=== PATIENT | female | born 2005 | race Caucasian/White ===

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

== ENCOUNTER 2024-11-29 00:49 | Inpatient (IN) | payer OTHER, SELFPAY ==
--- OUTSIDE RECORDS SUMMARY | 2024-11-29 01:16 | XMS REPORT | Continuity of Care Document ---
Author Name Unknown Address [address] [facility] [place] [address] [facility] Address [address] 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 Name Role Phone SHANELL GUTIERREZ Primary Care Physician Sara MAYRA Delatorre Attending Clinician Unavailable GHAZAL CARRERA Attending Clinician GHAZAL Reddy Attending Clinician Renate Fernandez NP, [place] Attending Clinician [phone] AMOL FERNANDEZ Attending Clinician Cathie carpenter Doctor Unassigned, [place] Attending Clinician U LUCILA Esteban Attending Clinician Unavailable KENNEDI QUINN Attending Clinician Sarav ailKennedi Sharma MD Attending Clinician + Shanell Gutierrez Attending Clinician [phone] Jorden FRANCO, Alban Attending Clinician [phone] Hilario FRANCO, Gama Vallecillo Attending Clinician [phone] 1, [facility] Nst Room Attending Clinician Unavailable Monique Sarkar Attending Clinician [phone] BORIS WASHINGTON Attending Clinician Unavailabl e 1, [facility] Us Room Attending Clinician Unavailab Boris Arroyo MD Attending Clinician [phone] UMM CERVANTES Attending Clinician Unavailable Umm Cervantes MD Attending Clinician [phone] DARIELA ANDRADE Attending Clinician Unav ailable Fellow, [facility] Attending Clinician Un available Dariela Andrade MD Attending Clinician + Room, [facility] Nst Attending Clinician Unavailable Nurse, [facility] Attending Clinician Unavailable 2, [facility] Us Room Attending Clinician Unavailab Ronal Love DO Attending Clinician [phone] RONAL MENA Attending Clinician Unavailable Lab, Frank Moe Attending Clinician Unavailable Pauly Jacinto RN Attending Clinician Unavailabl e Ultrasound, [facility] Attending Clinician Unavaila Jose Tong MD Attending Clinician + JOSE BROWER Attending Clinician Unav ailable JETT LABOY Attending Clinician Unavailable Chris Pinto MD Attending Clinician + Jett Laboy MD Attending Clinician [phone] TYRONE GARZA Attending Clinician Unavailable Tyrone Polanco Attending Clinician [phone] MONIQUE FAGAN Attending Clinician Unavailabl e Risa Gill Attending Clinician [phone] KENNEDI QUINN Admitting Clinician Unav ailable Kennedi Quinn MD Admitting Clinician + AMOL FERNANDEZ Admitting Clinician CHRIS Castrejon Admitting Clinician Unavolodymyr ailable Payers Payer Name Policy Type Policy Number Effective Date Expirati on Date Source [employer] MEDICAID [id number] 2012 00:00:00 Problems Condition Name Condition Details Condition Category Status Onset Date Resolution Date Last Treatment Date Treating Clinician Comments Source Encounter for visit Encounter for visit Disease Active 2022-04 0-16 00:00: 00 [facility] (spontaneo us vaginal delivery) (spontaneo us vaginal delivery) Disease Active 9-06 00:00: 00 [facility] Single live Single live Disease Active 9-06 00:00: 00 [facility] Maternal varicella, non-immune Maternal varicella, non-immune Disease Active 9-06 00:00: 00 [facility] 38 weeks gestation of 38 weeks gestation of Disease Active 9-04 00:00: 00 [facility] Oligohydra mnios in third trimester Oligohydra mnios in third trimester Disease Active 9-04 00:00: 00 [facility] Group beta Strep positive Group beta Strep positive Disease Active 8-21 00:00: 00 [facility] Uterine size-date discrepanc y, antepartum Uterine size-date discrepanc y, antepartum Disease Active 7-20 00:00: 00 [facility] Diet controlled gestationa l diabetes mellitus (GDM), antepartum Diet controlled gestationa l diabetes mellitus (GDM), antepartum Disease Active 7-20 00:00: 00 [facility] Nexplanon insertion Nexplanon insertion Disease Active 7-20 00:00: 00 [facility] Gestationa l diabetes mellitus (GDM) in third trimester controlled on oral hypoglycem ic drug Gestationa l diabetes mellitus (GDM) in third trimester controlled on oral hypoglycem ic drug Disease Active 7-20 00:00: 00 [facility] Gastroesop hageal reflux in Gastroesop hageal reflux in Disease Active 6-15 00:00: 00 [facility] Pain of right hand Pain of right hand Disease Active 6-15 00:00: 00 [facility] Dysuria Dysuria Disease Active 2-25 00:00: 00 [facility] Mild tobacco abuse Mild tobacco abuse Disease Active 2- 00:00: 00 [facility] Tooth decay Tooth decay Disease Active 06-21 00:00: 00 [facility] with inconclusi ve viability, single or unspecifie d fetus with inconclusi ve viability, single or unspecifie d fetus Disease Active 05-23 00:00: 00 [facility] Nausea and vomiting during Nausea and vomiting during Disease Active 05-23 00:00: 00 [facility] Patient underweigh t Patient underweigh t Disease Active 05-23 00:00: 00 [facility] Supervisio n of high risk in third trimester Supervisio n of high risk in third trimester Disease Active 05-23 00:00: 00 [facility] Constipati on Constipati on Disease Active 05-26 00:00: 00 Overview: Formattin g of this note might be different from the original. 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 Utility [facility] Primary nocturnal enuresis Primary nocturnal enuresis Disease Active 10-02 00:00: 00 [facility] Allergies, Adverse Reactions, Alerts Allergy Name Allergy Type Status Severity Reaction(s) Onset Date Inactive Date Treating Clinician Comments Source ASPIRIN DRUG INGREDI Active 2020-04 00:00: 00 [facility] IBUPROFE N DRUG INGREDI Active Hiv2020-04 00:00: 00 [facility] Aspirin Propensi ty to adverse reaction s Active Hiv2020-04 00:00: 00 [facility] Ibuprofe n Propensi ty to adverse reaction s Active Hiv2020-04 00:00: [address] [facility] LATEX DRUG INGREDI Active Hives 12-26 00:00: [address] [facility] Latex Propensi ty to adverse reaction s Active Hives 12-26 00:00: [address] [facility] NO KNOWN ALLERGIE S Drug Class Active [facility] Social History Social Habit Start Date Stop Date Quantity Comments Source ASSERTION 2022-04-17 00:00:00 [facility] Gender identity [facility] History of tobacco use Cigarette Smoker [facility] History of Social function 2023-02-09 00:00:00 2023-02-09 00:00:00 [facility] Alcohol intake 2023-01-19 00:00:00 2023-01-19 00:00:00 Ex-drinker (finding) [facility] Exposure to SARS-CoV-2 (event) 2022-09-01 00:00:00 2022-09-11 10:35:00 Not sure [facility] Cigarettes smoked current (pack per day) - Reported 2022-05-23 00:00:00 2022-05-23 00:00:00 [facility] Tobacco Comment 2022-05-23 00:00:00 2022-05-23 00:00:00 uncle smokes around patient [facility] Sex Assigned At 2005 00:00:00 2005 00:00:00 [facility] Smoking Status Start Date Stop Date Source Smokes tobacco daily 2022-05-23 00:00:00 [facility] Occasional tobacco smoker 2017-06-10 00:00:00 [facility] Medications Ordered Medication Name Filled Medication Name Start Date Stop Date Current Medication? Ordering Clinician Indication Dosage Frequency Signature (SIG) Comments Components Source etonogestre L (NEXPLANON) implant 68 mg 2022-04 18:15: 00 02-09 17:25 :00 No [id number] [address]mg [facility] norelgestro min-ethinyl estradiol 150-35 mcg/24 hr patch 01-19 00:00: 00 Yes [id number] 1{patch } Apply 1 Patch to skin weekly. [facility] varicella virus vaccine live (VARIVAX) injection and diluent vial 12-31 14:13: 55 Yes 1{each} 0.5 mL (1 Each), Subcutaneo us, ONCE-PRIOR TO DISCHARGE, 1 dose, Starting on Thu12/31/22 at 0913, Until Discontinu ed, Routine, Give vaccine prior to discharge [facility] PNV no.153/FA/o m3/dha/epa/ fish ( GUMMIES ORAL) 12-31 09:18: 16 12-31 00:00 :00 No Take by mouth. [facility] [id number] fum-folic () 27 mg iron- 1 mg folic tablet 12-31 00:00: 00 Yes [id number] 1{tbl} Take 1 tablet by mouth in the morning. [facility] docusate 100 mg capsule 12-31 00:00: 00 Yes [id number] 200mg Take 2 capsules by mouth once daily as needed for Constipati on. [facility] ferrous sulfate 325 mg (65 mg iron) tablet 12-31 00:00: 00 Yes [id number] 325mg Take 1 tablet by mouth in the morning. [facility] simethicone (GAS RELIEF (SIMETHICON E)) chewable tablet 160 mg 12-29 23:00: 00 Yes 160mg 160 mg, Oral, PC+HS, First dose on Thu12/29/22 at 1800, Until Discontinu ed, Routine [facility] acetaminoph en (TYLENOL) tablet 650 mg 12-29 22:15: 00 01-01 16:59 :00 No 650mg 650 mg, Oral, Q6H, 12 doses, First dose on Thu12/29/22 at 1715, Last dose on Mary 01/01/23 at 0600, Routine [facility] rho(D) immune globulin (RHOGAM) syringe 300 mcg 12-29 22:07: 40 Yes 300ug 300 mcg, Intramuscu lar, ONCE, For 1 dose, Conditiona l, Routine [facility] diphenhydrA MINE (BENADRYL) tablet 25 mg 12-29 22:07: 35 Yes 25mg 25 mg, Oral, Q6HPRN, Starting on Thu12/29/22 at 1707, Until Discontinu ed, Routine, Sleep, Itching [facility] ondansetron (ZOFRAN (PF)) injection 4 mg 12-29 22:07: 35 Yes 4mg 4 mg, Slow IV Push, Q8HPRN, Starting on Thu12/29/22 at 1707, Until Discontinu ed, Routine, Nausea and Vomiting (N/V) [facility] docusate (COLACE) capsule 200 mg 12-29 22:07: 35 Yes 200mg 200 mg, Oral, QDAILYPRN, Starting on Thu12/29/22 at 1707, Until Discontinu ed, Routine, Constipati on [facility] magnesium hydroxide (MILK OF MAGNESIA) 400 mg/5 mL suspension 30 mL 12-29 22:07: 35 Yes 30mL 30 mL, Oral, QDAILYPRN, Starting on Thu12/29/22 at 1707, Until Discontinu ed, Routine, Constipati on [facility] benzocaine- menthol (DERMOPLAST ) 20-0.5 % topical spray 12-29 22:07: 35 Yes Topical, PRN, Starting on Thu12/29/22 at 1707, Until Discontinu ed, Routine, Perineum discomfort [facility] terbutaline (BRETHINE) injection 0.25 mg 12-29 17:00: 00 12-29 15:55 :00 No .25mg 0.25 mg, Intravenou s, ONCE, 1 dose, On Thu12/29/22 at 1200, Routine [facility] ropivacaine 0.2 % (NAROPIN (PF)) epidural infusion 12-29 15:38: 00 12-29 21:47 :56 No Epidural, CONTINUOUS PRN, Starting on Thu12/29/22 at 1038, Until Discontinu ed, Routine, Intra-op [facility] lidocaine-e pinephrine (XYLOCAINE W/EPINEPHRI NE) 1.5 %-1:200,000 injection 12-29 15:37: 00 12-29 21:47 :56 No Epidural, ONCE INTRA PROCEDURE, Starting on Thu12/29/22 at 1037, Until Discontinu ed, Routine, Intra-op [facility] PNV no.153/FA/o m3/dha/epa/ fish ( GUMMIES ORAL) 12-29 15:34: 17 Yes Take by mouth. [facility] morpHINE (4 mg/mL) injection 4 mg 12-29 13:30: 00 12-29 12:55 :00 No 4mg 4 mg, Slow IV Push, ONCE, 1 dose, On Thu12/29/22 at 0830, Routine [facility] oxytocin (PITOCIN) 30 units in NS 500 mL IV infusion 12-29 13:14: 36 12-29 22:07 :39 No 2mU/min at 2-40 mL/hr, IV Infusion, TITRATE, Starting on Thu12/29/22 at 0814, Until Thu12/29/22 at 1707, YA [facility] D5W-LR IV infusion 1,000 mL 12-29 09:41: 13 12-29 22:07 :39 No 1000mL at 1-125 mL/hr, IV Infusion, TITRATE, Starting on Thu12/29/22 at 0441, Until Thu12/29/22 at 1707, Routine [facility] PNV no.153/FA/o m3/dha/epa/ fish ( GUMMIES ORAL) 12-29 03:14: 19 Yes Take by mouth. [facility] metFORMIN 500 mg tablet 11-21 00:00: 00 12-31 00:00 :00 No [id number] 500mg Take 1 tablet by mouth in the morning for 90 days. [facility] omeprazole 40 mg capsule 11-13 00:00: 00 12-31 00:00 :00 No [id number] 40mg Take 1 capsule by mouth in the morning. [facility] FREESTYLE LITE STRIPS strip 10-22 00:00: 00 Yes USE TO CHECK BLOOD SUGAR FOUR TIMES A DAY DIRECTED [facility] FREESTYLE LITE STRIPS strip 10-22 00:00: 00 12-31 00:00 :00 No USE TO CHECK BLOOD SUGAR FOUR TIMES A DAY DIRECTED [facility] Blood-Gluco se Meter (BLOOD GLUCOSE MONITORING) Kit 10-20 00:00: 00 Yes Check blood sugar 4 times daily as directed. Brand per Insurance. [facility] Blood Sugar Diagnostic, Disc Strp 10-20 00:00: 00 Yes Check blood sugar 4 times a day as directed. [facility] Lancets Misc 10-20 00:00: 00 Yes Check blood sugars 4 times a day as directed. [facility] Alcohol Swabs PadM 10-20 00:00: 00 12-31 00:00 :00 No Apply to area 4 times a day to check blood sugar as directed. [facility] Blood-Gluco se Meter (BLOOD GLUCOSE MONITORING) Kit 10-20 00:00: 00 12-31 00:00 :00 No Check blood sugar 4 times daily as directed. Brand per Insurance. [facility] Blood Sugar Diagnostic, Disc Strp 0 10-20 00:00: 00 12-31 00:00 :00 No Check blood sugar 4 times a day as directed. [facility] Lancets Misc 0 10-20 00:00: 00 12-31 00:00 :00 No Check blood sugars 4 times a day as directed. [facility] omeprazole 20 mg capsule 15 00:00: 00 12-31 00:00 :00 No [id number] 20mg Take 1 capsule by mouth in the morning. [facility] PNV no.153/FA/o m3/dha/epa/ fish ( GUMMIES ORAL) 24 13:37: 34 Yes Take by mouth. [facility] PNV/iron,ca rb/docusat/ folic ac (PRENA-CAP ORAL) 17 00:00: 00 10-09 00:00 :00 No [facility] PNV no.153/FA/o m3/dha/epa/ fish ( GUMMIES ORAL) 05-23 15:23: 40 Yes Take by mouth. [facility] ondansetron 4 mg tablet 05-23 00:00: 00 12-31 00:00 :00 No [id number] 4mg Take 1 tablet by mouth every 8 (eight) hours as needed for Nausea and Vomiting (N/V). [facility] iopamidol (ISOVUE 370-500 mL) injection 60 mL 12-01 04:00: 00 12-01 04:00 :00 No [id number] 60mL 60 mL, Intravenou s, ONCE, 1 dose, On 11/30/21 at 2300, Routine [facility] acetaminoph en (TYLENOL) tablet 1,000 mg 12-01 02:30: 00 12-01 01:29 :00 No 1000mg 1,000 mg, Oral, ONCE NOW, 1 dose, On 11/30/21 at 2130, Routine [facility] vancomycin (VANCOCIN) 500 mg in NaCl 0.9% (NS) 100 mL MINI-BAG 12-01 02:15: 00 12-01 03:38 :00 No 500mg 500 mg, IV Piggyback, ONCE, 1 dose, On 11/30/21 at 2115, Administer over 90 Minutes, 100 mL
Reas on for Anti-Infec tive: Documented Infection< br>Documen savannah Infection Site: Skin / Soft Tissue
Duration of Therapy: Other (see Comments) [facility] piperacilli n-tazobacta m (ZOSYN) 3.375 g in NaCl 0.9% (NS) 100 mL MINI-BAG 12-01 02:00: 00 12-01 01:35 :00 No 3.375g 3.375 g, IV Piggyback, ONCE NOW, 1 dose, On 11/30/21 at 2100, Administer over 30 Minutes, 100 mL
Reas on for Anti-Infec tive: Empiric Therapy for Suspected Infection< br>Empiric Therapy Site: Other
O ther site: other
D uration of therapy: 72 hours [facility] NaCl 0.9% (NS) bolus infusion 1,000 mL 12-01 01:15: 00 12-01 02:38 :00 No 1000mL at 999 mL/hr, 1,000 mL, IV Infusion, ONCE, 1 dose, On 11/30/21 at 2014, STAT [facility] NaCl 0.9% (NS) bolus infusion 1,293 mL 12-01 01:15: 00 12-01 04:42 :00 No 30mL/kg at 999 mL/hr, 1,293 mL (30 mL/kg ?43.1 kg), IV Infusion, ONCE, 1 dose, On 11/30/21 at 2014, STAT [facility] ondansetron (ZOFRAN ODT) 4 mg disintegrat ing tablet 06-25 00:00: 00 05-23 00:00 :00 No [id number] 4mg Take 1 tablet by mouth every 8 (eight) hours as needed for Nausea and Vomiting (N/V). [facility] promethazin e-codeine 6.25-10 mg/5 mL syrup 06-25 00:00: 00 05-23 00:00 :00 No [id number] 5mL Take 5 mL by mouth 4 (four) times daily as needed for Cough. [facility] cyproheptad ine 4 mg tablet 07-18 00:00: 00 05-23 00:00 :00 No [id number] [facility] methylpheni date 54 mg 24 hr tablet 06-18 00:00: 05-23 00:00 :00 No 54mg Take 54 mg by mouth every morning. [facility] Immunizations Ordered Immunization Name Filled Immunization Name Date Status Comments Source Pediarix (dtap/hep B/ipv) 2023-02-19 00:00:00 Completed [facility] DTAP 2023-02-19 00:00:00 Completed [facility] HEPATITIS A 2023-02-19 00:00:00 Completed [facility] MMR 2023-02-19 00:00:00 Completed [facility] Varicella (varivax)(chicken pox) 2023-02-19 00:00:00 Completed [facility] Polio (IPV/OPV) 2023-02-19 00:00:00 Completed [facility] TDAP 2023-02-19 00:00:00 Completed [facility] Meningococcal Oligosaccharide (groups A, C, Y and W-135) conjugate vaccine (MCV4O) 2023-02-19 00:00:00 Completed [facility] HPV9 2023-02-19 00:00:00 Completed [facility] HIB 4 Dose Schedule 2023-02-19 00:00:00 Completed [facility] Hep B, Adol or Pedi Dosage 2023-02-19 00:00:00 Completed [facility] Influenza Virus Vaccine 2023-02-19 00:00:00 Completed [facility] Pneumococcal 7 Conjugate, PCV7 (Prevnar7) 2023-02-19 00:00:00 Completed [facility] DTaP, Unspecified Formulation 2023-02-19 00:00:00 Completed [facility] Flu Trivalent 2023-02-19 00:00:00 Completed [facility] Hib-HbOC 2023-02-19 00:00:00 Completed [facility] Meningococcal Polysaccharide (groups A, C, Y and W-135) conjugate vaccine (MCV4P) 2023-02-19 00:00:00 Completed [facility] IPV 2023-02-19 00:00:00 Completed [facility] Pediarix (dtap/hep B/ipv) 2023-02-18 00:00:00 Completed [facility] DTAP 2023-02-18 00:00:00 Completed [facility] HEPATITIS A 2023-02-18 00:00:00 Completed [facility] MMR 2023-02-18 00:00:00 Completed [facility] Varicella (varivax)(chicken pox) 2023-02-18 00:00:00 Completed [facility] Polio (IPV/OPV) 2023-02-18 00:00:00 Completed [facility] TDAP 2023-02-18 00:00:00 Completed [facility] Meningococcal Oligosaccharide (groups A, C, Y and W-135) conjugate vaccine (MCV4O) 2023-02-18 00:00:00 Completed [facility] HPV9 2023-02-18 00:00:00 Completed [facility] HIB 4 Dose Schedule 2023-02-18 00:00:00 Completed [facility] Hep B, Adol or Pedi Dosage 2023-02-18 00:00:00 Completed [facility] Influenza Virus Vaccine 2023-02-18 00:00:00 Completed [facility] Pneumococcal 7 Conjugate, PCV7 (Prevnar7) 2023-02-18 00:00:00 Completed [facility] DTaP, Unspecified Formulation 2023-02-18 00:00:00 Completed [facility] Flu Trivalent 2023-02-18 00:00:00 Completed [facility] Hib-HbOC 2023-02-18 00:00:00 Completed [facility] Meningococcal Polysaccharide (groups A, C, Y and W-135) conjugate vaccine (MCV4P) 2023-02-18 00:00:00 Completed [facility] IPV 2023-02-18 00:00:00 Completed [facility] Pediarix (dtap/hep B/ipv) 2023-02-09 11:15:00 Completed [facility] DTAP 2023-02-09 11:15:00 Completed [facility] HEPATITIS A 2023-02-09 11:15:00 Completed [facility] MMR 2023-02-09 11:15:00 Completed [facility] Varicella (varivax)(chicken pox) 2023-02-09 11:15:00 Completed [facility] Polio (IPV/OPV) 2023-02-09 11:15:00 Completed [facility] TDAP 2023-02-09 11:15:00 Completed [facility] Meningococcal Oligosaccharide (groups A, C, Y and W-135) conjugate vaccine (MCV4O) 2023-02-09 11:15:00 Completed [facility] HPV9 2023-02-09 11:15:00 Completed [facility] HIB 4 Dose Schedule 2023-02-09 11:15:00 Completed [facility] Hep B, Adol or Pedi Dosage 2023-02-09 11:15:00 Completed [facility] Influenza Virus Vaccine 2023-02-09 11:15:00 Completed [facility] Pneumococcal 7 Conjugate, PCV7 (Prevnar7) 2023-02-09 11:15:00 Completed [facility] DTaP, Unspecified Formulation 2023-02-09 11:15:00 Completed [facility] Flu Trivalent 2023-02-09 11:15:00 Completed [facility] Hib-HbOC 2023-02-09 11:15:00 Completed [facility] Meningococcal Polysaccharide (groups A, C, Y and W-135) conjugate vaccine (MCV4P) 2023-02-09 11:15:00 Completed [facility] IPV 2023-02-09 11:15:00 Completed [facility] Pediarix (dtap/hep B/ipv) 2023-02-09 00:00:00 Completed [facility] DTAP 2023-02-09 00:00:00 Completed [facility] HEPATITIS A 2023-02-09 00:00:00 Completed [facility] MMR 2023-02-09 00:00:00 Completed [facility] Varicella (varivax)(chicken pox) 2023-02-09 00:00:00 Completed [facility] Polio (IPV/OPV) 2023-02-09 00:00:00 Completed [facility] TDAP 2023-02-09 00:00:00 Completed [facility] Meningococcal Oligosaccharide (groups A, C, Y and W-135) conjugate vaccine (MCV4O) 2023-02-09 00:00:00 Completed [facility] HPV9 2023-02-09 00:00:00 Completed [facility] HIB 4 Dose Schedule 2023-02-09 00:00:00 Completed [facility] Hep B, Adol or Pedi Dosage 2023-02-09 00:00:00 Completed [facility] Influenza Virus Vaccine 2023-02-09 00:00:00 Completed [facility] Pneumococcal 7 Conjugate, PCV7 (Prevnar7) 2023-02-09 00:00:00 Completed [facility] DTaP, Unspecified Formulation 2023-02-09 00:00:00 Completed [facility] Flu Trivalent 2023-02-09 00:00:00 Completed [facility] Hib-HbOC 2023-02-09 00:00:00 Completed [facility] Meningococcal Polysaccharide (groups A, C, Y and W-135) conjugate vaccine (MCV4P) 2023-02-09 00:00:00 Completed [facility] IPV 2023-02-09 00:00:00 Completed [facility] HIB 4 Dose Schedule 2023-01-29 00:00:00 Completed [facility] Pediarix (dtap/hep B/ipv) 2023-01-29 00:00:00 Completed [facility] DTAP 2023-01-29 00:00:00 Completed [facility] HEPATITIS A 2023-01-29 00:00:00 Completed [facility] MMR 2023-01-29 00:00:00 Completed [facility] Pneumococcal 7 Conjugate, PCV7 (Prevnar7) 2023-01-29 00:00:00 Completed [facility] Varicella (varivax)(chicken pox) 2023-01-29 00:00:00 Completed [facility] Polio (IPV/OPV) 2023-01-29 00:00:00 Completed [facility] TDAP 2023-01-29 00:00:00 Completed [facility] Meningococcal Oligosaccharide (groups A, C, Y and W-135) conjugate vaccine (MCV4O) 2023-01-29 00:00:00 Completed [facility] HPV9 2023-01-29 00:00:00 Completed [facility] Hep B, Adol or Pedi Dosage 2023-01-29 00:00:00 Completed [facility] Influenza Virus Vaccine 2023-01-29 00:00:00 Completed [facility] DTaP, Unspecified Formulation 2023-01-29 00:00:00 Completed [facility] Flu Trivalent 2023-01-29 00:00:00 Completed [facility] Hib-HbOC 2023-01-29 00:00:00 Completed [facility] Meningococcal Polysaccharide (groups A, C, Y and W-135) conjugate vaccine (MCV4P) 2023-01-29 00:00:00 Completed [facility] IPV 2023-01-29 00:00:00 Completed [facility] Pediarix (dtap/hep B/ipv) 2023-01-27 00:00:00 Completed [facility] DTAP 2023-01-27 00:00:00 Completed [facility] HEPATITIS A 2023-01-27 00:00:00 Completed [facility] MMR 2023-01-27 00:00:00 Completed [facility] Varicella (varivax)(chicken pox) 2023-01-27 00:00:00 Completed [facility] Polio (IPV/OPV) 2023-01-27 00:00:00 Completed [facility] TDAP 2023-01-27 00:00:00 Completed [facility] Meningococcal Oligosaccharide (groups A, C, Y and W-135) conjugate vaccine (MCV4O) 2023-01-27 00:00:00 Completed [facility] HPV9 2023-01-27 00:00:00 Completed [facility] HIB 4 Dose Schedule 2023-01-27 00:00:00 Completed [facility] Hep B, Adol or Pedi Dosage 2023-01-27 00:00:00 Completed [facility] Influenza Virus Vaccine 2023-01-27 00:00:00 Completed [facility] Pneumococcal 7 Conjugate, PCV7 (Prevnar7) 2023-01-27 00:00:00 Completed [facility] DTaP, Unspecified Formulation 2023-01-27 00:00:00 Completed [facility] Flu Trivalent 2023-01-27 00:00:00 Completed [facility] Hib-HbOC 2023-01-27 00:00:00 Completed [facility] Meningococcal Polysaccharide (groups A, C, Y and W-135) conjugate vaccine (MCV4P) 2023-01-27 00:00:00 Completed [facility] IPV 2023-01-27 00:00:00 Completed [facility] Pediarix (dtap/hep B/ipv) 2023-01-20 00:00:00 Completed [facility] DTAP 2023-01-20 00:00:00 Completed [facility] HEPATITIS A 2023-01-20 00:00:00 Completed [facility] MMR 2023-01-20 00:00:00 Completed [facility] Varicella (varivax)(chicken pox) 2023-01-20 00:00:00 Completed [facility] Polio (IPV/OPV) 2023-01-20 00:00:00 Completed [facility] TDAP 2023-01-20 00:00:00 Completed [facility] Meningococcal Oligosaccharide (groups A, C, Y and W-135) conjugate vaccine (MCV4O) 2023-01-20 00:00:00 Completed [facility] HPV9 2023-01-20 00:00:00 Completed [facility] HIB 4 Dose Schedule 2023-01-20 00:00:00 Completed [facility] Hep B, Adol or Pedi Dosage 2023-01-20 00:00:00 Completed [facility] Influenza Virus Vaccine 2023-01-20 00:00:00 Completed [facility] Pneumococcal 7 Conjugate, PCV7 (Prevnar7) 2023-01-20 00:00:00 Completed [facility] DTaP, Unspecified Formulation 2023-01-20 00:00:00 Completed [facility] Flu Trivalent 2023-01-20 00:00:00 Completed [facility] Hib-HbOC 2023-01-20 00:00:00 Completed [facility] Meningococcal Polysaccharide (groups A, C, Y and W-135) conjugate vaccine (MCV4P) 2023-01-20 00:00:00 Completed [facility] IPV 2023-01-20 00:00:00 Completed [facility] Pediarix (dtap/hep B/ipv) 2023-01-19 10:00:00 Completed [facility] DTAP 2023-01-19 10:00:00 Completed [facility] HEPATITIS A 2023-01-19 10:00:00 Completed [facility] MMR 2023-01-19 10:00:00 Completed [facility] Varicella (varivax)(chicken pox) 2023-01-19 10:00:00 Completed [facility] Polio (IPV/OPV) 2023-01-19 10:00:00 Completed [facility] TDAP 2023-01-19 10:00:00 Completed [facility] Meningococcal Oligosaccharide (groups A, C, Y and W-135) conjugate vaccine (MCV4O) 2023-01-19 10:00:00 Completed [facility] HPV9 2023-01-19 10:00:00 Completed [facility] HIB 4 Dose Schedule 2023-01-19 10:00:00 Completed [facility] Hep B, Adol or Pedi Dosage 2023-01-19 10:00:00 Completed [facility] Influenza Virus Vaccine 2023-01-19 10:00:00 Completed [facility] Pneumococcal 7 Conjugate, PCV7 (Prevnar7) 2023-01-19 10:00:00 Completed [facility] DTaP, Unspecified Formulation 2023-01-19 10:00:00 Completed [facility] Flu Trivalent 2023-01-19 10:00:00 Completed [facility] Hib-HbOC 2023-01-19 10:00:00 Completed [facility] Meningococcal Polysaccharide (groups A, C, Y and W-135) conjugate vaccine (MCV4P) 2023-01-19 10:00:00 Completed [facility] IPV 2023-01-19 10:00:00 Completed [facility] Pediarix (dtap/hep B/ipv) 2022-12-30 00:00:00 Completed [facility] DTAP 2022-12-30 00:00:00 Completed [facility] HEPATITIS A 2022-12-30 00:00:00 Completed [facility] MMR 2022-12-30 00:00:00 Completed [facility] Varicella (varivax)(chicken pox) 2022-12-30 00:00:00 Completed [facility] Polio (IPV/OPV) 2022-12-30 00:00:00 Completed [facility] TDAP 2022-12-30 00:00:00 Completed [facility] Meningococcal Oligosaccharide (groups A, C, Y and W-135) conjugate vaccine (MCV4O) 2022-12-30 00:00:00 Completed [facility] HPV9 2022-12-30 00:00:00 Completed [facility] HIB 4 Dose Schedule 2022-12-30 00:00:00 Completed [facility] Hep B, Adol or Pedi Dosage 2022-12-30 00:00:00 Completed [facility] Influenza Virus Vaccine 2022-12-30 00:00:00 Completed [facility] Pneumococcal 7 Conjugate, PCV7 (Prevnar7) 2022-12-30 00:00:00 Completed [facility] DTaP, Unspecified Formulation 2022-12-30 00:00:00 Completed [facility] Flu Trivalent 2022-12-30 00:00:00 Completed [facility] Hib-HbOC 2022-12-30 00:00:00 Completed [facility] Meningococcal Polysaccharide (groups A, C, Y and W-135) conjugate vaccine (MCV4P) 2022-12-30 00:00:00 Completed [facility] IPV 2022-12-30 00:00:00 Completed [facility] Pediarix (dtap/hep B/ipv) 2022-12-22 00:00:00 Completed [facility] DTAP 2022-12-22 00:00:00 Completed [facility] HEPATITIS A 2022-12-22 00:00:00 Completed [facility] MMR 2022-12-22 00:00:00 Completed [facility] Varicella (varivax)(chicken pox) 2022-12-22 00:00:00 Completed [facility] Polio (IPV/OPV) 2022-12-22 00:00:00 Completed [facility] TDAP 2022-12-22 00:00:00 Completed [facility] Meningococcal Oligosaccharide (groups A, C, Y and W-135) conjugate vaccine (MCV4O) 2022-12-22 00:00:00 Completed [facility] HPV9 2022-12-22 00:00:00 Completed [facility] HIB 4 Dose Schedule 2022-12-22 00:00:00 Completed [facility] Hep B, Adol or Pedi Dosage 2022-12-22 00:00:00 Completed [facility] Influenza Virus Vaccine 2022-12-22 00:00:00 Completed [facility] Pneumococcal 7 Conjugate, PCV7 (Prevnar7) 2022-12-22 00:00:00 Completed [facility] DTaP, Unspecified Formulation 2022-12-22 00:00:00 Completed [facility] Flu Trivalent 2022-12-22 00:00:00 Completed [facility] Hib-HbOC 2022-12-22 00:00:00 Completed [facility] Meningococcal Polysaccharide (groups A, C, Y and W-135) conjugate vaccine (MCV4P) 2022-12-22 00:00:00 Completed [facility] IPV 2022-12-22 00:00:00 Completed [facility] Pediarix (dtap/hep B/ipv) 2022-12-09 00:00:00 Completed [facility] DTAP 2022-12-09 00:00:00 Completed [facility] HEPATITIS A 2022-12-09 00:00:00 Completed [facility] MMR 2022-12-09 00:00:00 Completed [facility] Varicella (varivax)(chicken pox) 2022-12-09 00:00:00 Completed [facility] Polio (IPV/OPV) 2022-12-09 00:00:00 Completed [facility] TDAP 2022-12-09 00:00:00 Completed [facility] Meningococcal Oligosaccharide (groups A, C, Y and W-135) conjugate vaccine (MCV4O) 2022-12-09 00:00:00 Completed [facility] HPV9 2022-12-09 00:00:00 Completed [facility] HIB 4 Dose Schedule 2022-12-09 00:00:00 Completed [facility] Hep B, Adol or Pedi Dosage 2022-12-09 00:00:00 Completed [facility] Influenza Virus Vaccine 2022-12-09 00:00:00 Completed [facility] Pneumococcal 7 Conjugate, PCV7 (Prevnar7) 2022-12-09 00:00:00 Completed [facility] DTaP, Unspecified Formulation 2022-12-09 00:00:00 Completed [facility] Flu Trivalent 2022-12-09 00:00:00 Completed [facility] Hib-HbOC 2022-12-09 00:00:00 Completed [facility] Meningococcal Polysaccharide (groups A, C, Y and W-135) conjugate vaccine (MCV4P) 2022-12-09 00:00:00 Completed [facility] IPV 2022-12-09 00:00:00 Completed [facility] Pediarix (dtap/hep B/ipv) 2022-11-14 00:00:00 Completed [facility] DTAP 2022-11-14 00:00:00 Completed [facility] HEPATITIS A 2022-11-14 00:00:00 Completed [facility] MMR 2022-11-14 00:00:00 Completed [facility] Varicella (varivax)(chicken pox) 2022-11-14 00:00:00 Completed [facility] Polio (IPV/OPV) 2022-11-14 00:00:00 Completed [facility] TDAP 2022-11-14 00:00:00 Completed [facility] Meningococcal Oligosaccharide (groups A, C, Y and W-135) conjugate vaccine (MCV4O) 2022-11-14 00:00:00 Completed [facility] HPV9 2022-11-14 00:00:00 Completed [facility] HIB 4 Dose Schedule 2022-11-14 00:00:00 Completed [facility] Hep B, Adol or Pedi Dosage 2022-11-14 00:00:00 Completed [facility] Influenza Virus Vaccine 2022-11-14 00:00:00 Completed [facility] Pneumococcal 7 Conjugate, PCV7 (Prevnar7) 2022-11-14 00:00:00 Completed [facility] DTaP, Unspecified Formulation 2022-11-14 00:00:00 Completed [facility] Flu Trivalent 2022-11-14 00:00:00 Completed [facility] Hib-HbOC 2022-11-14 00:00:00 Completed [facility] Meningococcal Polysaccharide (groups A, C, Y and W-135) conjugate vaccine (MCV4P) 2022-11-14 00:00:00 Completed [facility] IPV 2022-11-14 00:00:00 Completed [facility] Pediarix (dtap/hep B/ipv) 2022-11-07 00:00:00 Completed [facility] DTAP 2022-11-07 00:00:00 Completed [facility] HEPATITIS A 2022-11-07 00:00:00 Completed [facility] MMR 2022-11-07 00:00:00 Completed [facility] Varicella (varivax)(chicken pox) 2022-11-07 00:00:00 Completed [facility] Polio (IPV/OPV) 2022-11-07 00:00:00 Completed [facility] TDAP 2022-11-07 00:00:00 Completed [facility] Meningococcal Oligosaccharide (groups A, C, Y and W-135) conjugate vaccine (MCV4O) 2022-11-07 00:00:00 Completed [facility] HPV9 2022-11-07 00:00:00 Completed [facility] HIB 4 Dose Schedule 2022-11-07 00:00:00 Completed [facility] Hep B, Adol or Pedi Dosage 2022-11-07 00:00:00 Completed [facility] Influenza Virus Vaccine 2022-11-07 00:00:00 Completed [facility] Pneumococcal 7 Conjugate, PCV7 (Prevnar7) 2022-11-07 00:00:00 Completed [facility] DTaP, Unspecified Formulation 2022-11-07 00:00:00 Completed [facility] Flu Trivalent 2022-11-07 00:00:00 Completed [facility] Hib-HbOC 2022-11-07 00:00:00 Completed [facility] Meningococcal Polysaccharide (groups A, C, Y and W-135) conjugate vaccine (MCV4P) 2022-11-07 00:00:00 Completed [facility] IPV 2022-11-07 00:00:00 Completed [facility] Pediarix (dtap/hep B/ipv) 2022-10-17 00:00:00 Completed [facility] DTAP 2022-10-17 00:00:00 Completed [facility] HEPATITIS A 2022-10-17 00:00:00 Completed [facility] MMR 2022-10-17 00:00:00 Completed [facility] Varicella (varivax)(chicken pox) 2022-10-17 00:00:00 Completed [facility] Polio (IPV/OPV) 2022-10-17 00:00:00 Completed [facility] TDAP 2022-10-17 00:00:00 Completed [facility] Meningococcal Oligosaccharide (groups A, C, Y and W-135) conjugate vaccine (MCV4O) 2022-10-17 00:00:00 Completed [facility] HPV9 2022-10-17 00:00:00 Completed [facility] HIB 4 Dose Schedule 2022-10-17 00:00:00 Completed [facility] Hep B, Adol or Pedi Dosage 2022-10-17 00:00:00 Completed [facility] Influenza Virus Vaccine 2022-10-17 00:00:00 Completed [facility] Pneumococcal 7 Conjugate, PCV7 (Prevnar7) 2022-10-17 00:00:00 Completed [facility] DTaP, Unspecified Formulation 2022-10-17 00:00:00 Completed [facility] Flu Trivalent 2022-10-17 00:00:00 Completed [facility] Hib-HbOC 2022-10-17 00:00:00 Completed [facility] Meningococcal Polysaccharide (groups A, C, Y and W-135) conjugate vaccine (MCV4P) 2022-10-17 00:00:00 Completed [facility] IPV 2022-10-17 00:00:00 Completed [facility] Pediarix (dtap/hep B/ipv) 2022-10-07 00:00:00 Completed [facility] DTAP 2022-10-07 00:00:00 Completed [facility] HEPATITIS A 2022-10-07 00:00:00 Completed [facility] MMR 2022-10-07 00:00:00 Completed [facility] Varicella (varivax)(chicken pox) 2022-10-07 00:00:00 Completed [facility] Polio (IPV/OPV) 2022-10-07 00:00:00 Completed [facility] TDAP 2022-10-07 00:00:00 Completed [facility] Meningococcal Oligosaccharide (groups A, C, Y and W-135) conjugate vaccine (MCV4O) 2022-10-07 00:00:00 Completed [facility] HPV9 2022-10-07 00:00:00 Completed [facility] HIB 4 Dose Schedule 2022-10-07 00:00:00 Completed [facility] Hep B, Adol or Pedi Dosage 2022-10-07 00:00:00 Completed [facility] Influenza Virus Vaccine 2022-10-07 00:00:00 Completed [facility] Pneumococcal 7 Conjugate, PCV7 (Prevnar7) 2022-10-07 00:00:00 Completed [facility] DTaP, Unspecified Formulation 2022-10-07 00:00:00 Completed [facility] Flu Trivalent 2022-10-07 00:00:00 Completed [facility] Hib-HbOC 2022-10-07 00:00:00 Completed [facility] Meningococcal Polysaccharide (groups A, C, Y and W-135) conjugate vaccine (MCV4P) 2022-10-07 00:00:00 Completed [facility] IPV 2022-10-07 00:00:00 Completed [facility] Pediarix (dtap/hep B/ipv) 2022-09-22 00:00:00 Completed [facility] DTAP 2022-09-22 00:00:00 Completed [facility] HEPATITIS A 2022-09-22 00:00:00 Completed [facility] MMR 2022-09-22 00:00:00 Completed [facility] Varicella (varivax)(chicken pox) 2022-09-22 00:00:00 Completed [facility] Polio (IPV/OPV) 2022-09-22 00:00:00 Completed [facility] TDAP 2022-09-22 00:00:00 Completed [facility] Meningococcal Oligosaccharide (groups A, C, Y and W-135) conjugate vaccine (MCV4O) 2022-09-22 00:00:00 Completed [facility] HPV9 2022-09-22 00:00:00 Completed [facility] HIB 4 Dose Schedule 2022-09-22 00:00:00 Completed [facility] Hep B, Adol or Pedi Dosage 2022-09-22 00:00:00 Completed [facility] Influenza Virus Vaccine 2022-09-22 00:00:00 Completed [facility] Pneumococcal 7 Conjugate, PCV7 (Prevnar7) 2022-09-22 00:00:00 Completed [facility] DTaP, Unspecified Formulation 2022-09-22 00:00:00 Completed [facility] Flu Trivalent 2022-09-22 00:00:00 Completed [facility] Hib-HbOC 2022-09-22 00:00:00 Completed [facility] Meningococcal Polysaccharide (groups A, C, Y and W-135) conjugate vaccine (MCV4P) 2022-09-22 00:00:00 Completed [facility] IPV 2022-09-22 00:00:00 Completed [facility] Pediarix (dtap/hep B/ipv) 2022-07-28 00:00:00 Completed [facility] DTAP 2022-07-28 00:00:00 Completed [facility] HEPATITIS A 2022-07-28 00:00:00 Completed [facility] MMR 2022-07-28 00:00:00 Completed [facility] Varicella (varivax)(chicken pox) 2022-07-28 00:00:00 Completed [facility] Polio (IPV/OPV) 2022-07-28 00:00:00 Completed [facility] TDAP 2022-07-28 00:00:00 Completed [facility] Meningococcal Oligosaccharide (groups A, C, Y and W-135) conjugate vaccine (MCV4O) 2022-07-28 00:00:00 Completed [facility] HPV9 2022-07-28 00:00:00 Completed [facility] HIB 4 Dose Schedule 2022-07-28 00:00:00 Completed [facility] Hep B, Adol or Pedi Dosage 2022-07-28 00:00:00 Completed [facility] Influenza Virus Vaccine 2022-07-28 00:00:00 Completed [facility] Pneumococcal 7 Conjugate, PCV7 (Prevnar7) 2022-07-28 00:00:00 Completed [facility] DTaP, Unspecified Formulation 2022-07-28 00:00:00 Completed [facility] Flu Trivalent 2022-07-28 00:00:00 Completed [facility] Hib-HbOC 2022-07-28 00:00:00 Completed [facility] Meningococcal Polysaccharide (groups A, C, Y and W-135) conjugate vaccine (MCV4P) 2022-07-28 00:00:00 Completed [facility] IPV 2022-07-28 00:00:00 Completed [facility] Pediarix (dtap/hep B/ipv) 2022-07-27 00:00:00 Completed [facility] DTAP 2022-07-27 00:00:00 Completed [facility] HEPATITIS A 2022-07-27 00:00:00 Completed [facility] MMR 2022-07-27 00:00:00 Completed [facility] Varicella (varivax)(chicken pox) 2022-07-27 00:00:00 Completed [facility] Polio (IPV/OPV) 2022-07-27 00:00:00 Completed [facility] TDAP 2022-07-27 00:00:00 Completed [facility] Meningococcal Oligosaccharide (groups A, C, Y and W-135) conjugate vaccine (MCV4O) 2022-07-27 00:00:00 Completed [facility] HPV9 2022-07-27 00:00:00 Completed [facility] HIB 4 Dose Schedule 2022-07-27 00:00:00 Completed [facility] Hep B, Adol or Pedi Dosage 2022-07-27 00:00:00 Completed [facility] Influenza Virus Vaccine 2022-07-27 00:00:00 Completed [facility] Pneumococcal 7 Conjugate, PCV7 (Prevnar7) 2022-07-27 00:00:00 Completed [facility] DTaP, Unspecified Formulation 2022-07-27 00:00:00 Completed [facility] Flu Trivalent 2022-07-27 00:00:00 Completed [facility] Hib-HbOC 2022-07-27 00:00:00 Completed [facility] Meningococcal Polysaccharide (groups A, C, Y and W-135) conjugate vaccine (MCV4P) 2022-07-27 00:00:00 Completed [facility] IPV 2022-07-27 00:00:00 Completed [facility] HPV9 2018-09-03 00:00:00 Completed [facility] HPV9 2018-09-03 00:00:00 Completed [facility] HPV9 2018-09-03 00:00:00 Completed [facility] HPV9 2018-09-03 00:00:00 Completed [facility] HPV9 2018-09-03 00:00:00 Completed [facility] HPV9 2018-09-03 00:00:00 Completed [facility] HPV9 2018-09-03 00:00:00 Completed [facility] HPV9 2018-09-03 00:00:00 Completed [facility] HPV9 2018-09-03 00:00:00 Completed [facility] HPV9 2018-09-03 00:00:00 Completed [facility] HPV9 2018-09-03 00:00:00 Completed [facility] HPV9 2018-09-03 00:00:00 Completed [facility] HPV9 2018-09-03 00:00:00 Completed [facility] HPV9 2018-09-03 00:00:00 Completed [facility] HPV9 2018-09-03 00:00:00 Completed [facility] HPV9 2018-09-03 00:00:00 Completed [facility] HPV9 2018-09-03 00:00:00 Completed [facility] HPV9 2018-09-03 00:00:00 Completed [facility] HPV9 2018-09-03 00:00:00 Completed [facility] HPV9 2018-09-03 00:00:00 Completed [facility] HPV9 2018-09-03 00:00:00 Completed [facility] HPV9 2018-09-03 00:00:00 Completed [facility] HPV9 2018-09-03 00:00:00 Completed [facility] HPV9 2018-09-03 00:00:00 Completed [facility] HPV9 2018-09-03 00:00:00 Completed [facility] HPV9 2018-09-03 00:00:00 Completed [facility] HPV9 2018-09-03 00:00:00 Completed [facility] HPV9 2018-09-03 00:00:00 Completed [facility] HPV9 2018-09-03 00:00:00 Completed [facility] HPV9 2018-09-03 00:00:00 Completed [facility] HPV9 2018-09-03 00:00:00 Completed [facility] HPV9 2018-09-03 00:00:00 Completed [facility] HPV9 2018-09-03 00:00:00 Completed [facility] HPV9 2018-09-03 00:00:00 Completed [facility] HPV9 2018-09-03 00:00:00 Completed [facility] HPV9 2018-09-03 00:00:00 Completed [facility] HPV9 2018-09-03 00:00:00 Completed [facility] HPV9 2018-09-03 00:00:00 Completed [facility] HPV9 2018-09-03 00:00:00 Completed [facility] HPV9 2018-09-03 00:00:00 Completed [facility] HPV9 2018-09-03 00:00:00 Completed [facility] HPV9 2018-09-03 00:00:00 Completed [facility] HPV9 2018-09-03 00:00:00 Completed [facility] HPV9 2018-09-03 00:00:00 Completed [facility] HPV9 2018-09-03 00:00:00 Completed [facility] HPV9 2018-09-03 00:00:00 Completed [facility] HPV9 2018-09-03 00:00:00 Completed [facility] HPV9 2018-09-03 00:00:00 Completed [facility] HPV9 2018-09-03 00:00:00 Completed [facility] HPV9 2018-09-03 00:00:00 Completed [facility] HPV9 2018-09-03 00:00:00 Completed [facility] HPV9 2018-09-03 00:00:00 Completed [facility] HPV9 2018-09-03 00:00:00 Completed [facility] HPV9 2018-09-03 00:00:00 Completed [facility] HPV9 2018-09-03 00:00:00 Completed [facility] HPV9 2018-09-03 00:00:00 Completed [facility] HPV9 2018-09-03 00:00:00 Completed [facility] HPV9 2018-09-03 00:00:00 Completed [facility] HPV9 2018-09-03 00:00:00 Completed [facility] HPV9 2018-09-03 00:00:00 Completed [facility] HPV9 2018-09-03 00:00:00 Completed [facility] HPV9 2018-09-03 00:00:00 Completed [facility] Meningococcal Oligosaccharide (groups A, C, Y and W-135) conjugate vaccine (MCV4O) 2016-07-09 00:00:00 Completed [facility] TDAP 2016-07-09 00:00:00 Completed [facility] HPV9 2016-07-09 00:00:00 Completed [facility] Meningococcal Polysaccharide (groups A, C, Y and W-135) conjugate vaccine (MCV4P) 2016-07-09 00:00:00 Completed [facility] Meningococcal Oligosaccharide (groups A, C, Y and W-135) conjugate vaccine (MCV4O) 2016-07-09 00:00:00 Completed [facility] TDAP 2016-07-09 00:00:00 Completed [facility] HPV9 2016-07-09 00:00:00 Completed [facility] Meningococcal Polysaccharide (groups A, C, Y and W-135) conjugate vaccine (MCV4P) 2016-07-09 00:00:00 Completed [facility] Meningococcal Oligosaccharide (groups A, C, Y and W-135) conjugate vaccine (MCV4O) 2016-07-09 00:00:00 Completed [facility] TDAP 2016-07-09 00:00:00 Completed [facility] HPV9 2016-07-09 00:00:00 Completed [facility] Meningococcal Polysaccharide (groups A, C, Y and W-135) conjugate vaccine (MCV4P) 2016-07-09 00:00:00 Completed [facility] Meningococcal Oligosaccharide (groups A, C, Y and W-135) conjugate vaccine (MCV4O) 2016-07-09 00:00:00 Completed [facility] TDAP 2016-07-09 00:00:00 Completed [facility] HPV9 2016-07-09 00:00:00 Completed [facility] Meningococcal Polysaccharide (groups A, C, Y and W-135) conjugate vaccine (MCV4P) 2016-07-09 00:00:00 Completed [facility] Meningococcal Oligosaccharide (groups A, C, Y and W-135) conjugate vaccine (MCV4O) 2016-07-09 00:00:00 Completed [facility] TDAP 2016-07-09 00:00:00 Completed [facility] HPV9 2016-07-09 00:00:00 Completed [facility] Meningococcal Polysaccharide (groups A, C, Y and W-135) conjugate vaccine (MCV4P) 2016-07-09 00:00:00 Completed [facility] Meningococcal Oligosaccharide (groups A, C, Y and W-135) conjugate vaccine (MCV4O) 2016-07-09 00:00:00 Completed [facility] TDAP 2016-07-09 00:00:00 Completed [facility] HPV9 2016-07-09 00:00:00 Completed [facility] Meningococcal Polysaccharide (groups A, C, Y and W-135) conjugate vaccine (MCV4P) 2016-07-09 00:00:00 Completed [facility] Meningococcal Oligosaccharide (groups A, C, Y and W-135) conjugate vaccine (MCV4O) 2016-07-09 00:00:00 Completed [facility] TDAP 2016-07-09 00:00:00 Completed [facility] Meningococcal Oligosaccharide (groups A, C, Y and W-135) conjugate vaccine (MCV4O) 2016-07-09 00:00:00 Completed [facility] TDAP 2016-07-09 00:00:00 Completed [facility] HPV9 2016-07-09 00:00:00 Completed [facility] HPV9 2016-07-09 00:00:00 Completed [facility] Meningococcal Polysaccharide (groups A, C, Y and W-135) conjugate vaccine (MCV4P) 2016-07-09 00:00:00 Completed [facility] Meningococcal Oligosaccharide (groups A, C, Y and W-135) conjugate vaccine (MCV4O) 2016-07-09 00:00:00 Completed [facility] TDAP 2016-07-09 00:00:00 Completed [facility] HPV9 2016-07-09 00:00:00 Completed [facility] Meningococcal Polysaccharide (groups A, C, Y and W-135) conjugate vaccine (MCV4P) 2016-07-09 00:00:00 Completed [facility] Meningococcal Oligosaccharide (groups A, C, Y and W-135) conjugate vaccine (MCV4O) 2016-07-09 00:00:00 Completed [facility] TDAP 2016-07-09 00:00:00 Completed [facility] HPV9 2016-07-09 00:00:00 Completed [facility] Meningococcal Polysaccharide (groups A, C, Y and W-135) conjugate vaccine (MCV4P) 2016-07-09 00:00:00 Completed [facility] Meningococcal Oligosaccharide (groups A, C, Y and W-135) conjugate vaccine (MCV4O) 2016-07-09 00:00:00 Completed [facility] TDAP 2016-07-09 00:00:00 Completed [facility] HPV9 2016-07-09 00:00:00 Completed [facility] Meningococcal Polysaccharide (groups A, C, Y and W-135) conjugate vaccine (MCV4P) 2016-07-09 00:00:00 Completed [facility] Meningococcal Oligosaccharide (groups A, C, Y and W-135) conjugate vaccine (MCV4O) 2016-07-09 00:00:00 Completed [facility] TDAP 2016-07-09 00:00:00 Completed [facility] HPV9 2016-07-09 00:00:00 Completed [facility] Meningococcal Polysaccharide (groups A, C, Y and W-135) conjugate vaccine (MCV4P) 2016-07-09 00:00:00 Completed [facility] Meningococcal Oligosaccharide (groups A, C, Y and W-135) conjugate vaccine (MCV4O) 2016-07-09 00:00:00 Completed [facility] TDAP 2016-07-09 00:00:00 Completed [facility] HPV9 2016-07-09 00:00:00 Completed [facility] Meningococcal Polysaccharide (groups A, C, Y and W-135) conjugate vaccine (MCV4P) 2016-07-09 00:00:00 Completed [facility] Meningococcal Oligosaccharide (groups A, C, Y and W-135) conjugate vaccine (MCV4O) 2016-07-09 00:00:00 Completed [facility] TDAP 2016-07-09 00:00:00 Completed [facility] HPV9 2016-07-09 00:00:00 Completed [facility] Meningococcal Polysaccharide (groups A, C, Y and W-135) conjugate vaccine (MCV4P) 2016-07-09 00:00:00 Completed [facility] Meningococcal Oligosaccharide (groups A, C, Y and W-135) conjugate vaccine (MCV4O) 2016-07-09 00:00:00 Completed [facility] TDAP 2016-07-09 00:00:00 Completed [facility] HPV9 2016-07-09 00:00:00 Completed [facility] Meningococcal Polysaccharide (groups A, C, Y and W-135) conjugate vaccine (MCV4P) 2016-07-09 00:00:00 Completed [facility] Meningococcal Oligosaccharide (groups A, C, Y and W-135) conjugate vaccine (MCV4O) 2016-07-09 00:00:00 Completed [facility] TDAP 2016-07-09 00:00:00 Completed [facility] Meningococcal Oligosaccharide (groups A, C, Y and W-135) conjugate vaccine (MCV4O) 2016-07-09 00:00:00 Completed [facility] TDAP 2016-07-09 00:00:00 Completed [facility] HPV9 2016-07-09 00:00:00 Completed [facility] HPV9 2016-07-09 00:00:00 Completed [facility] Meningococcal Polysaccharide (groups A, C, Y and W-135) conjugate vaccine (MCV4P) 2016-07-09 00:00:00 Completed [facility] Meningococcal Oligosaccharide (groups A, C, Y and W-135) conjugate vaccine (MCV4O) 2016-07-09 00:00:00 Completed [facility] TDAP 2016-07-09 00:00:00 Completed [facility] HPV9 2016-07-09 00:00:00 Completed [facility] Meningococcal Polysaccharide (groups A, C, Y and W-135) conjugate vaccine (MCV4P) 2016-07-09 00:00:00 Completed [facility] Meningococcal Oligosaccharide (groups A, C, Y and W-135) conjugate vaccine (MCV4O) 2016-07-09 00:00:00 Completed [facility] TDAP 2016-07-09 00:00:00 Completed [facility] HPV9 2016-07-09 00:00:00 Completed [facility] Meningococcal Polysaccharide (groups A, C, Y and W-135) conjugate vaccine (MCV4P) 2016-07-09 00:00:00 Completed [facility] Meningococcal Oligosaccharide (groups A, C, Y and W-135) conjugate vaccine (MCV4O) 2016-07-09 00:00:00 Completed [facility] TDAP 2016-07-09 00:00:00 Completed [facility] HPV9 2016-07-09 00:00:00 Completed [facility] Meningococcal Polysaccharide (groups A, C, Y and W-135) conjugate vaccine (MCV4P) 2016-07-09 00:00:00 Completed [facility] Meningococcal Oligosaccharide (groups A, C, Y and W-135) conjugate vaccine (MCV4O) 2016-07-09 00:00:00 Completed [facility] TDAP 2016-07-09 00:00:00 Completed [facility] HPV9 2016-07-09 00:00:00 Completed [facility] Meningococcal Polysaccharide (groups A, C, Y and W-135) conjugate vaccine (MCV4P) 2016-07-09 00:00:00 Completed [facility] Meningococcal Oligosaccharide (groups A, C, Y and W-135) conjugate vaccine (MCV4O) 2016-07-09 00:00:00 Completed [facility] TDAP 2016-07-09 00:00:00 Completed [facility] HPV9 2016-07-09 00:00:00 Completed [facility] Meningococcal Polysaccharide (groups A, C, Y and W-135) conjugate vaccine (MCV4P) 2016-07-09 00:00:00 Completed [facility] Meningococcal Oligosaccharide (groups A, C, Y and W-135) conjugate vaccine (MCV4O) 2016-07-09 00:00:00 Completed [facility] TDAP 2016-07-09 00:00:00 Completed [facility] HPV9 2016-07-09 00:00:00 Completed [facility] Meningococcal Polysaccharide (groups A, C, Y and W-135) conjugate vaccine (MCV4P) 2016-07-09 00:00:00 Completed [facility] Meningococcal Oligosaccharide (groups A, C, Y and W-135) conjugate vaccine (MCV4O) 2016-07-09 00:00:00 Completed [facility] TDAP 2016-07-09 00:00:00 Completed [facility] HPV9 2016-07-09 00:00:00 Completed [facility] Meningococcal Polysaccharide (groups A, C, Y and W-135) conjugate vaccine (MCV4P) 2016-07-09 00:00:00 Completed [facility] Meningococcal Oligosaccharide (groups A, C, Y and W-135) conjugate vaccine (MCV4O) 2016-07-09 00:00:00 Completed [facility] TDAP 2016-07-09 00:00:00 Completed [facility] HPV9 2016-07-09 00:00:00 Completed [facility] Meningococcal Polysaccharide (groups A, C, Y and W-135) conjugate vaccine (MCV4P) 2016-07-09 00:00:00 Completed [facility] Meningococcal Oligosaccharide (groups A, C, Y and W-135) conjugate vaccine (MCV4O) 2016-07-09 00:00:00 Completed [facility] TDAP 2016-07-09 00:00:00 Completed [facility] HPV9 2016-07-09 00:00:00 Completed [facility] Meningococcal Polysaccharide (groups A, C, Y and W-135) conjugate vaccine (MCV4P) 2016-07-09 00:00:00 Completed [facility] Meningococcal Oligosaccharide (groups A, C, Y and W-135) conjugate vaccine (MCV4O) 2016-07-09 00:00:00 Completed [facility] TDAP 2016-07-09 00:00:00 Completed [facility] HPV9 2016-07-09 00:00:00 Completed [facility] Meningococcal Oligosaccharide (groups A, C, Y and W-135) conjugate vaccine (MCV4O) 2016-07-09 00:00:00 Completed [facility] Meningococcal Polysaccharide (groups A, C, Y and W-135) conjugate vaccine (MCV4P) 2016-07-09 00:00:00 Completed [facility] TDAP 2016-07-09 00:00:00 Completed [facility] HPV9 2016-07-09 00:00:00 Completed [facility] Meningococcal Oligosaccharide (groups A, C, Y and W-135) conjugate vaccine (MCV4O) 2016-07-09 00:00:00 Completed [facility] TDAP 2016-07-09 00:00:00 Completed [facility] HPV9 2016-07-09 00:00:00 Completed [facility] Meningococcal Polysaccharide (groups A, C, Y and W-135) conjugate vaccine (MCV4P) 2016-07-09 00:00:00 Completed [facility] Meningococcal Oligosaccharide (groups A, C, Y and W-135) conjugate vaccine (MCV4O) 2016-07-09 00:00:00 Completed [facility] TDAP 2016-07-09 00:00:00 Completed [facility] HPV9 2016-07-09 00:00:00 Completed [facility] Meningococcal Polysaccharide (groups A, C, Y and W-135) conjugate vaccine (MCV4P) 2016-07-09 00:00:00 Completed [facility] Meningococcal Oligosaccharide (groups A, C, Y and W-135) conjugate vaccine (MCV4O) 2016-07-09 00:00:00 Completed [facility] TDAP 2016-07-09 00:00:00 Completed [facility] HPV9 2016-07-09 00:00:00 Completed [facility] Meningococcal Polysaccharide (groups A, C, Y and W-135) conjugate vaccine (MCV4P) 2016-07-09 00:00:00 Completed [facility] Meningococcal Oligosaccharide (groups A, C, Y and W-135) conjugate vaccine (MCV4O) 2016-07-09 00:00:00 Completed [facility] TDAP 2016-07-09 00:00:00 Completed [facility] HPV9 2016-07-09 00:00:00 Completed [facility] Meningococcal Polysaccharide (groups A, C, Y and W-135) conjugate vaccine (MCV4P) 2016-07-09 00:00:00 Completed [facility] Meningococcal Oligosaccharide (groups A, C, Y and W-135) conjugate vaccine (MCV4O) 2016-07-09 00:00:00 Completed [facility] TDAP 2016-07-09 00:00:00 Completed [facility] HPV9 2016-07-09 00:00:00 Completed [facility] Meningococcal Polysaccharide (groups A, C, Y and W-135) conjugate vaccine (MCV4P) 2016-07-09 00:00:00 Completed [facility] Meningococcal Oligosaccharide (groups A, C, Y and W-135) conjugate vaccine (MCV4O) 2016-07-09 00:00:00 Completed [facility] TDAP 2016-07-09 00:00:00 Completed [facility] HPV9 2016-07-09 00:00:00 Completed [facility] Meningococcal Polysaccharide (groups A, C, Y and W-135) conjugate vaccine (MCV4P) 2016-07-09 00:00:00 Completed [facility] Meningococcal Oligosaccharide (groups A, C, Y and W-135) conjugate vaccine (MCV4O) 2016-07-09 00:00:00 Completed [facility] TDAP 2016-07-09 00:00:00 Completed [facility] HPV9 2016-07-09 00:00:00 Completed [facility] Meningococcal Polysaccharide (groups A, C, Y and W-135) conjugate vaccine (MCV4P) 2016-07-09 00:00:00 Completed [facility] Meningococcal Oligosaccharide (groups A, C, Y and W-135) conjugate vaccine (MCV4O) 2016-07-09 00:00:00 Completed [facility] TDAP 2016-07-09 00:00:00 Completed [facility] HPV9 2016-07-09 00:00:00 Completed [facility] Meningococcal Polysaccharide (groups A, C, Y and W-135) conjugate vaccine (MCV4P) 2016-07-09 00:00:00 Completed [facility] Meningococcal Oligosaccharide (groups A, C, Y and W-135) conjugate vaccine (MCV4O) 2016-07-09 00:00:00 Completed [facility] TDAP 2016-07-09 00:00:00 Completed [facility] HPV9 2016-07-09 00:00:00 Completed [facility] Meningococcal Polysaccharide (groups A, C, Y and W-135) conjugate vaccine (MCV4P) 2016-07-09 00:00:00 Completed [facility] Meningococcal Oligosaccharide (groups A, C, Y and W-135) conjugate vaccine (MCV4O) 2016-07-09 00:00:00 Completed [facility] TDAP 2016-07-09 00:00:00 Completed [facility] HPV9 2016-07-09 00:00:00 Completed [facility] Meningococcal Polysaccharide (groups A, C, Y and W-135) conjugate vaccine (MCV4P) 2016-07-09 00:00:00 Completed [facility] Meningococcal Oligosaccharide (groups A, C, Y and W-135) conjugate vaccine (MCV4O) 2016-07-09 00:00:00 Completed [facility] TDAP 2016-07-09 00:00:00 Completed [facility] HPV9 2016-07-09 00:00:00 Completed [facility] Meningococcal Oligosaccharide (groups A, C, Y and W-135) conjugate vaccine (MCV4O) 2016-07-09 00:00:00 Completed [facility] Meningococcal Polysaccharide (groups A, C, Y and W-135) conjugate vaccine (MCV4P) 2016-07-09 00:00:00 Completed [facility] TDAP 2016-07-09 00:00:00 Completed [facility] HPV9 2016-07-09 00:00:00 Completed [facility] Meningococcal Oligosaccharide (groups A, C, Y and W-135) conjugate vaccine (MCV4O) 2016-07-09 00:00:00 Completed [facility] TDAP 2016-07-09 00:00:00 Completed [facility] HPV9 2016-07-09 00:00:00 Completed [facility] Meningococcal Polysaccharide (groups A, C, Y and W-135) conjugate vaccine (MCV4P) 2016-07-09 00:00:00 Completed [facility] Meningococcal Oligosaccharide (groups A, C, Y and W-135) conjugate vaccine (MCV4O) 2016-07-09 00:00:00 Completed [facility] TDAP 2016-07-09 00:00:00 Completed [facility] HPV9 2016-07-09 00:00:00 Completed [facility] Meningococcal Polysaccharide (groups A, C, Y and W-135) conjugate vaccine (MCV4P) 2016-07-09 00:00:00 Completed [facility] Meningococcal Oligosaccharide (groups A, C, Y and W-135) conjugate vaccine (MCV4O) 2016-07-09 00:00:00 Completed [facility] TDAP 2016-07-09 00:00:00 Completed [facility] HPV9 2016-07-09 00:00:00 Completed [facility] Meningococcal Polysaccharide (groups A, C, Y and W-135) conjugate vaccine (MCV4P) 2016-07-09 00:00:00 Completed [facility] Meningococcal Oligosaccharide (groups A, C, Y and W-135) conjugate vaccine (MCV4O) 2016-07-09 00:00:00 Completed [facility] TDAP 2016-07-09 00:00:00 Completed [facility] HPV9 2016-07-09 00:00:00 Completed [facility] Meningococcal Polysaccharide (groups A, C, Y and W-135) conjugate vaccine (MCV4P) 2016-07-09 00:00:00 Completed [facility] Meningococcal Oligosaccharide (groups A, C, Y and W-135) conjugate vaccine (MCV4O) 2016-07-09 00:00:00 Completed [facility] TDAP 2016-07-09 00:00:00 Completed [facility] HPV9 2016-07-09 00:00:00 Completed [facility] Meningococcal Polysaccharide (groups A, C, Y and W-135) conjugate vaccine (MCV4P) 2016-07-09 00:00:00 Completed [facility] Meningococcal Oligosaccharide (groups A, C, Y and W-135) conjugate vaccine (MCV4O) 2016-07-09 00:00:00 Completed [facility] TDAP 2016-07-09 00:00:00 Completed [facility] HPV9 2016-07-09 00:00:00 Completed [facility] Meningococcal Polysaccharide (groups A, C, Y and W-135) conjugate vaccine (MCV4P) 2016-07-09 00:00:00 Completed [facility] Meningococcal Oligosaccharide (groups A, C, Y and W-135) conjugate vaccine (MCV4O) 2016-07-09 00:00:00 Completed [facility] TDAP 2016-07-09 00:00:00 Completed [facility] HPV9 2016-07-09 00:00:00 Completed [facility] Meningococcal Polysaccharide (groups A, C, Y and W-135) conjugate vaccine (MCV4P) 2016-07-09 00:00:00 Completed [facility] Meningococcal Oligosaccharide (groups A, C, Y and W-135) conjugate vaccine (MCV4O) 2016-07-09 00:00:00 Completed [facility] TDAP 2016-07-09 00:00:00 Completed [facility] HPV9 2016-07-09 00:00:00 Completed [facility] Meningococcal Polysaccharide (groups A, C, Y and W-135) conjugate vaccine (MCV4P) 2016-07-09 00:00:00 Completed [facility] Meningococcal Oligosaccharide (groups A, C, Y and W-135) conjugate vaccine (MCV4O) 2016-07-09 00:00:00 Completed [facility] TDAP 2016-07-09 00:00:00 Completed [facility] HPV9 2016-07-09 00:00:00 Completed [facility] Meningococcal Polysaccharide (groups A, C, Y and W-135) conjugate vaccine (MCV4P) 2016-07-09 00:00:00 Completed [facility] Meningococcal Oligosaccharide (groups A, C, Y and W-135) conjugate vaccine (MCV4O) 2016-07-09 00:00:00 Completed [facility] TDAP 2016-07-09 00:00:00 Completed [facility] HPV9 2016-07-09 00:00:00 Completed [facility] Meningococcal Polysaccharide (groups A, C, Y and W-135) conjugate vaccine (MCV4P) 2016-07-09 00:00:00 Completed [facility] Meningococcal Oligosaccharide (groups A, C, Y and W-135) conjugate vaccine (MCV4O) 2016-07-09 00:00:00 Completed [facility] TDAP 2016-07-09 00:00:00 Completed [facility] HPV9 2016-07-09 00:00:00 Completed [facility] Meningococcal Oligosaccharide (groups A, C, Y and W-135) conjugate vaccine (MCV4O) 2016-07-09 00:00:00 Completed [facility] TDAP 2016-07-09 00:00:00 Completed [facility] HPV9 2016-07-09 00:00:00 Completed [facility] Meningococcal Polysaccharide (groups A, C, Y and W-135) conjugate vaccine (MCV4P) 2016-07-09 00:00:00 Completed [facility] Meningococcal Oligosaccharide (groups A, C, Y and W-135) conjugate vaccine (MCV4O) 2016-07-09 00:00:00 Completed [facility] Meningococcal Oligosaccharide (groups A, C, Y and W-135) conjugate vaccine (MCV4O) 2016-07-09 00:00:00 Completed [facility] TDAP 2016-07-09 00:00:00 Completed [facility] HPV9 2016-07-09 00:00:00 Completed [facility] Meningococcal Polysaccharide (groups A, C, Y and W-135) conjugate vaccine (MCV4P) 2016-07-09 00:00:00 Completed [facility] Meningococcal Oligosaccharide (groups A, C, Y and W-135) conjugate vaccine (MCV4O) 2016-07-09 00:00:00 Completed [facility] TDAP 2016-07-09 00:00:00 Completed [facility] HPV9 2016-07-09 00:00:00 Completed [facility] Tdap 2016-07-09 00:00:00 Completed [facility] Meningococcal Polysaccharide (groups A, C, Y and W-135) conjugate vaccine (MCV4P) 2016-07-09 00:00:00 Completed [facility] Meningococcal Oligosaccharide (groups A, C, Y and W-135) conjugate vaccine (MCV4O) 2016-07-09 00:00:00 Completed [facility] TDAP 2016-07-09 00:00:00 Completed [facility] HPV9 2016-07-09 00:00:00 Completed [facility] Meningococcal Polysaccharide (groups A, C, Y and W-135) conjugate vaccine (MCV4P) 2016-07-09 00:00:00 Completed [facility] HPV9 2016-07-09 00:00:00 Completed [facility] Meningococcal Oligosaccharide (groups A, C, Y and W-135) conjugate vaccine (MCV4O) 2016-07-09 00:00:00 Completed [facility] TDAP 2016-07-09 00:00:00 Completed [facility] HPV9 2016-07-09 00:00:00 Completed [facility] Meningococcal Polysaccharide (groups A, C, Y and W-135) conjugate vaccine (MCV4P) 2016-07-09 00:00:00 Completed [facility] Meningococcal Oligosaccharide (groups A, C, Y and W-135) conjugate vaccine (MCV4O) 2016-07-09 00:00:00 Completed [facility] TDAP 2016-07-09 00:00:00 Completed [facility] HPV9 2016-07-09 00:00:00 Completed [facility] Meningococcal Polysaccharide (groups A, C, Y and W-135) conjugate vaccine (MCV4P) 2016-07-09 00:00:00 Completed [facility] Meningococcal Oligosaccharide (groups A, C, Y and W-135) conjugate vaccine (MCV4O) 2016-07-09 00:00:00 Completed [facility] TDAP 2016-07-09 00:00:00 Completed [facility] HPV9 2016-07-09 00:00:00 Completed [facility] Meningococcal Polysaccharide (groups A, C, Y and W-135) conjugate vaccine (MCV4P) 2016-07-09 00:00:00 Completed [facility] Meningococcal Oligosaccharide (groups A, C, Y and W-135) conjugate vaccine (MCV4O) 2016-07-09 00:00:00 Completed [facility] TDAP 2016-07-09 00:00:00 Completed [facility] HPV9 2016-07-09 00:00:00 Completed [facility] Meningococcal Polysaccharide (groups A, C, Y and W-135) conjugate vaccine (MCV4P) 2016-07-09 00:00:00 Completed [facility] Meningococcal Oligosaccharide (groups A, C, Y and W-135) conjugate vaccine (MCV4O) 2016-07-09 00:00:00 Completed [facility] TDAP 2016-07-09 00:00:00 Completed [facility] HPV9 2016-07-09 00:00:00 Completed [facility] Meningococcal Polysaccharide (groups A, C, Y and W-135) conjugate vaccine (MCV4P) 2016-07-09 00:00:00 Completed [facility] Meningococcal Oligosaccharide (groups A, C, Y and W-135) conjugate vaccine (MCV4O) 2016-07-09 00:00:00 Completed [facility] TDAP 2016-07-09 00:00:00 Completed [facility] HPV9 2016-07-09 00:00:00 Completed [facility] Meningococcal Polysaccharide (groups A, C, Y and W-135) conjugate vaccine (MCV4P) 2016-07-09 00:00:00 Completed [facility] Meningococcal Oligosaccharide (groups A, C, Y and W-135) conjugate vaccine (MCV4O) 2016-07-09 00:00:00 Completed [facility] TDAP 2016-07-09 00:00:00 Completed [facility] HPV9 2016-07-09 00:00:00 Completed [facility] Meningococcal Polysaccharide (groups A, C, Y and W-135) conjugate vaccine (MCV4P) 2016-07-09 00:00:00 Completed [facility] Meningococcal Oligosaccharide (groups A, C, Y and W-135) conjugate vaccine (MCV4O) 2016-07-09 00:00:00 Completed [facility] Tdap 2016-07-09 00:00:00 Completed [facility] Meningococcal Oligosaccharide (groups A, C, Y and W-135) conjugate vaccine (MCV4O) 2016-07-09 00:00:00 Completed [facility] TDAP 2016-07-09 00:00:00 Completed [facility] HPV9 2016-07-09 00:00:00 Completed [facility] HPV9 2016-07-09 00:00:00 Completed [facility] Meningococcal Polysaccharide (groups A, C, Y and W-135) conjugate vaccine (MCV4P) 2016-07-09 00:00:00 Completed [facility] Meningococcal Oligosaccharide (groups A, C, Y and W-135) conjugate vaccine (MCV4O) 2016-07-09 00:00:00 Completed [facility] TDAP 2016-07-09 00:00:00 Completed [facility] HPV9 2016-07-09 00:00:00 Completed [facility] Meningococcal Polysaccharide (groups A, C, Y and W-135) conjugate vaccine (MCV4P) 2016-07-09 00:00:00 Completed [facility] Meningococcal Oligosaccharide (groups A, C, Y and W-135) conjugate vaccine (MCV4O) 2016-07-09 00:00:00 Completed [facility] TDAP 2016-07-09 00:00:00 Completed [facility] HPV9 2016-07-09 00:00:00 Completed [facility] Meningococcal Polysaccharide (groups A, C, Y and W-135) conjugate vaccine (MCV4P) 2016-07-09 00:00:00 Completed [facility] Meningococcal Oligosaccharide (groups A, C, Y and W-135) conjugate vaccine (MCV4O) 2016-07-09 00:00:00 Completed [facility] TDAP 2016-07-09 00:00:00 Completed [facility] HPV9 2016-07-09 00:00:00 Completed [facility] Meningococcal Polysaccharide (groups A, C, Y and W-135) conjugate vaccine (MCV4P) 2016-07-09 00:00:00 Completed [facility] Meningococcal Oligosaccharide (groups A, C, Y and W-135) conjugate vaccine (MCV4O) 2016-07-09 00:00:00 Completed [facility] TDAP 2016-07-09 00:00:00 Completed [facility] HPV9 2016-07-09 00:00:00 Completed [facility] Meningococcal Polysaccharide (groups A, C, Y and W-135) conjugate vaccine (MCV4P) 2016-07-09 00:00:00 Completed [facility] TDAP 2011-01-08 00:00:00 Completed [facility] TDAP 2011-01-08 00:00:00 Completed [facility] TDAP 2011-01-08 00:00:00 Completed [facility] TDAP 2011-01-08 00:00:00 Completed [facility] TDAP 2011-01-08 00:00:00 Completed [facility] TDAP 2011-01-08 00:00:00 Completed [facility] TDAP 2011-01-08 00:00:00 Completed [facility] TDAP 2011-01-08 00:00:00 Completed [facility] TDAP 2011-01-08 00:00:00 Completed [facility] TDAP 2011-01-08 00:00:00 Completed [facility] TDAP 2011-01-08 00:00:00 Completed [facility] TDAP 2011-01-08 00:00:00 Completed [facility] TDAP 2011-01-08 00:00:00 Completed [facility] TDAP 2011-01-08 00:00:00 Completed [facility] TDAP 2011-01-08 00:00:00 Completed [facility] TDAP 2011-01-08 00:00:00 Completed [facility] TDAP 2011-01-08 00:00:00 Completed [facility] TDAP 2011-01-08 00:00:00 Completed [facility] TDAP 2011-01-08 00:00:00 Completed [facility] TDAP 2011-01-08 00:00:00 Completed [facility] TDAP 2011-01-08 00:00:00 Completed [facility] TDAP 2011-01-08 00:00:00 Completed [facility] TDAP 2011-01-08 00:00:00 Completed [facility] TDAP 2011-01-08 00:00:00 Completed [facility] TDAP 2011-01-08 00:00:00 Completed [facility] TDAP 2011-01-08 00:00:00 Completed [facility] TDAP 2011-01-08 00:00:00 Completed [facility] TDAP 2011-01-08 00:00:00 Completed [facility] TDAP 2011-01-08 00:00:00 Completed [facility] TDAP 2011-01-08 00:00:00 Completed [facility] TDAP 2011-01-08 00:00:00 Completed [facility] TDAP 2011-01-08 00:00:00 Completed [facility] TDAP 2011-01-08 00:00:00 Completed [facility] TDAP 2011-01-08 00:00:00 Completed [facility] TDAP 2011-01-08 00:00:00 Completed [facility] TDAP 2011-01-08 00:00:00 Completed [facility] TDAP 2011-01-08 00:00:00 Completed [facility] TDAP 2011-01-08 00:00:00 Completed [facility] TDAP 2011-01-08 00:00:00 Completed [facility] TDAP 2011-01-08 00:00:00 Completed [facility] TDAP 2011-01-08 00:00:00 Completed [facility] TDAP 2011-01-08 00:00:00 Completed [facility] TDAP 2011-01-08 00:00:00 Completed [facility] TDAP 2011-01-08 00:00:00 Completed [facility] TDAP 2011-01-08 00:00:00 Completed [facility] TDAP 2011-01-08 00:00:00 Completed [facility] TDAP 2011-01-08 00:00:00 Completed [facility] TDAP 2011-01-08 00:00:00 Completed [facility] TDAP 2011-01-08 00:00:00 Completed [facility] Tdap 2011-01-08 00:00:00 Completed [facility] TDAP 2011-01-08 00:00:00 Completed [facility] TDAP 2011-01-08 00:00:00 Completed [facility] TDAP 2011-01-08 00:00:00 Completed [facility] TDAP 2011-01-08 00:00:00 Completed [facility] TDAP 2011-01-08 00:00:00 Completed [facility] TDAP 2011-01-08 00:00:00 Completed [facility] TDAP 2011-01-08 00:00:00 Completed [facility] TDAP 2011-01-08 00:00:00 Completed [facility] TDAP 2011-01-08 00:00:00 Completed [facility] TDAP 2011-01-08 00:00:00 Completed [facility] TDAP 2011-01-08 00:00:00 Completed [facility] TDAP 2011-01-08 00:00:00 Completed [facility] TDAP 2011-01-08 00:00:00 Completed [facility] Tdap 2011-01-08 00:00:00 Completed [facility] TDAP 2011-01-08 00:00:00 Completed [facility] TDAP 2011-01-08 00:00:00 Completed [facility] TDAP 2011-01-08 00:00:00 Completed [facility] TDAP 2011-01-08 00:00:00 Completed [facility] TDAP 2011-01-08 00:00:00 Completed [facility] Varicella (varivax)(chicken pox) 2008-10-25 00:00:00 Completed [facility] Varicella (varivax)(chicken pox) 2008-10-25 00:00:00 Completed [facility] Varicella (varivax)(chicken pox) 2008-10-25 00:00:00 Completed [facility] Varicella (varivax)(chicken pox) 2008-10-25 00:00:00 Completed [facility] Varicella (varivax)(chicken pox) 2008-10-25 00:00:00 Completed [facility] Varicella (varivax)(chicken pox) 2008-10-25 00:00:00 Completed [facility] Varicella (varivax)(chicken pox) 2008-10-25 00:00:00 Completed [facility] Varicella (varivax)(chicken pox) 2008-10-25 00:00:00 Completed [facility] Varicella (varivax)(chicken pox) 2008-10-25 00:00:00 Completed [facility] Varicella (varivax)(chicken pox) 2008-10-25 00:00:00 Completed [facility] Varicella (varivax)(chicken pox) 2008-10-25 00:00:00 Completed [facility] Varicella (varivax)(chicken pox) 2008-10-25 00:00:00 Completed [facility] Varicella (varivax)(chicken pox) 2008-10-25 00:00:00 Completed [facility] Varicella (varivax)(chicken pox) 2008-10-25 00:00:00 Completed [facility] Varicella (varivax)(chicken pox) 2008-10-25 00:00:00 Completed [facility] Varicella (varivax)(chicken pox) 2008-10-25 00:00:00 Completed [facility] Varicella (varivax)(chicken pox) 2008-10-25 00:00:00 Completed [facility] Varicella (varivax)(chicken pox) 2008-10-25 00:00:00 Completed [facility] Varicella (varivax)(chicken pox) 2008-10-25 00:00:00 Completed [facility] Varicella (varivax)(chicken pox) 2008-10-25 00:00:00 Completed [facility] Varicella (varivax)(chicken pox) 2008-10-25 00:00:00 Completed [facility] Varicella (varivax)(chicken pox) 2008-10-25 00:00:00 Completed [facility] Varicella (varivax)(chicken pox) 2008-10-25 00:00:00 Completed [facility] Varicella (varivax)(chicken pox) 2008-10-25 00:00:00 Completed [facility] Varicella (varivax)(chicken pox) 2008-10-25 00:00:00 Completed [facility] Varicella (varivax)(chicken pox) 2008-10-25 00:00:00 Completed [facility] Varicella (varivax)(chicken pox) 2008-10-25 00:00:00 Completed [facility] Varicella (varivax)(chicken pox) 2008-10-25 00:00:00 Completed [facility] Varicella (varivax)(chicken pox) 2008-10-25 00:00:00 Completed [facility] Varicella (varivax)(chicken pox) 2008-10-25 00:00:00 Completed [facility] Varicella (varivax)(chicken pox) 2008-10-25 00:00:00 Completed [facility] Varicella (varivax)(chicken pox) 2008-10-25 00:00:00 Completed [facility] Varicella (varivax)(chicken pox) 2008-10-25 00:00:00 Completed [facility] Varicella (varivax)(chicken pox) 2008-10-25 00:00:00 Completed [facility] Varicella (varivax)(chicken pox) 2008-10-25 00:00:00 Completed [facility] Varicella (varivax)(chicken pox) 2008-10-25 00:00:00 Completed [facility] Varicella (varivax)(chicken pox) 2008-10-25 00:00:00 Completed [facility] Varicella (varivax)(chicken pox) 2008-10-25 00:00:00 Completed [facility] Varicella (varivax)(chicken pox) 2008-10-25 00:00:00 Completed [facility] Varicella (varivax)(chicken pox) 2008-10-25 00:00:00 Completed [facility] Varicella (varivax)(chicken pox) 2008-10-25 00:00:00 Completed [facility] Varicella (varivax)(chicken pox) 2008-10-25 00:00:00 Completed [facility] Varicella (varivax)(chicken pox) 2008-10-25 00:00:00 Completed [facility] Varicella (varivax)(chicken pox) 2008-10-25 00:00:00 Completed [facility] Varicella (varivax)(chicken pox) 2008-10-25 00:00:00 Completed [facility] Varicella (varivax)(chicken pox) 2008-10-25 00:00:00 Completed [facility] Varicella (varivax)(chicken pox) 2008-10-25 00:00:00 Completed [facility] Varicella (varivax)(chicken pox) 2008-10-25 00:00:00 Completed [facility] Varicella (varivax)(chicken pox) 2008-10-25 00:00:00 Completed [facility] Varicella (varivax)(chicken pox) 2008-10-25 00:00:00 Completed [facility] Varicella (varivax)(chicken pox) 2008-10-25 00:00:00 Completed [facility] Varicella (varivax)(chicken pox) 2008-10-25 00:00:00 Completed [facility] Varicella (varivax)(chicken pox) 2008-10-25 00:00:00 Completed [facility] Varicella (varivax)(chicken pox) 2008-10-25 00:00:00 Completed [facility] Varicella (varivax)(chicken pox) 2008-10-25 00:00:00 Completed [facility] Varicella (varivax)(chicken pox) 2008-10-25 00:00:00 Completed [facility] Varicella (varivax)(chicken pox) 2008-10-25 00:00:00 Completed [facility] Varicella (varivax)(chicken pox) 2008-10-25 00:00:00 Completed [facility] Varicella (varivax)(chicken pox) 2008-10-25 00:00:00 Completed [facility] Varicella (varivax)(chicken pox) 2008-10-25 00:00:00 Completed [facility] Varicella (varivax)(chicken pox) 2008-10-25 00:00:00 Completed [facility] Varicella (varivax)(chicken pox) 2008-10-25 00:00:00 Completed [facility] Varicella (varivax)(chicken pox) 2008-10-25 00:00:00 Completed [facility] Varicella (varivax)(chicken pox) 2008-10-25 00:00:00 Completed [facility] Varicella (varivax)(chicken pox) 2008-10-25 00:00:00 Completed [facility] Varicella (varivax)(chicken pox) 2008-10-25 00:00:00 Completed [facility] Varicella (varivax)(chicken pox) 2008-10-25 00:00:00 Completed [facility] Varicella (varivax)(chicken pox) 2008-10-25 00:00:00 Completed [facility] Varicella (varivax)(chicken pox) 2008-10-25 00:00:00 Completed [facility] DTAP 2007-12-30 00:00:00 Completed [facility] MMR 2007-12-30 00:00:00 Completed [facility] Polio (IPV/OPV) 2007-12-30 00:00:00 Completed [facility] DTaP, Unspecified Formulation 2007-12-30 00:00:00 Completed [facility] IPV 2007-12-30 00:00:00 Completed [facility] DTAP 2007-12-30 00:00:00 Completed [facility] MMR 2007-12-30 00:00:00 Completed [facility] Polio (IPV/OPV) 2007-12-30 00:00:00 Completed [facility] DTaP, Unspecified Formulation 2007-12-30 00:00:00 Completed [facility] IPV 2007-12-30 00:00:00 Completed [facility] DTAP 2007-12-30 00:00:00 Completed [facility] MMR 2007-12-30 00:00:00 Completed [facility] Polio (IPV/OPV) 2007-12-30 00:00:00 Completed [facility] DTaP, Unspecified Formulation 2007-12-30 00:00:00 Completed [facility] IPV 2007-12-30 00:00:00 Completed [facility] DTAP 2007-12-30 00:00:00 Completed [facility] MMR 2007-12-30 00:00:00 Completed [facility] Polio (IPV/OPV) 2007-12-30 00:00:00 Completed [facility] DTaP, Unspecified Formulation 2007-12-30 00:00:00 Completed [facility] IPV 2007-12-30 00:00:00 Completed [facility] DTAP 2007-12-30 00:00:00 Completed [facility] MMR 2007-12-30 00:00:00 Completed [facility] Polio (IPV/OPV) 2007-12-30 00:00:00 Completed [facility] DTaP, Unspecified Formulation 2007-12-30 00:00:00 Completed [facility] IPV 2007-12-30 00:00:00 Completed [facility] DTAP 2007-12-30 00:00:00 Completed [facility] MMR 2007-12-30 00:00:00 Completed [facility] DTAP 2007-12-30 00:00:00 Completed [facility] MMR 2007-12-30 00:00:00 Completed [facility] Polio (IPV/OPV) 2007-12-30 00:00:00 Completed [facility] Polio (IPV/OPV) 2007-12-30 00:00:00 Completed [facility] DTaP, Unspecified Formulation 2007-12-30 00:00:00 Completed [facility] IPV 2007-12-30 00:00:00 Completed [facility] DTAP 2007-12-30 00:00:00 Completed [facility] MMR 2007-12-30 00:00:00 Completed [facility] Polio (IPV/OPV) 2007-12-30 00:00:00 Completed [facility] DTaP, Unspecified Formulation 2007-12-30 00:00:00 Completed [facility] IPV 2007-12-30 00:00:00 Completed [facility] DTAP 2007-12-30 00:00:00 Completed [facility] MMR 2007-12-30 00:00:00 Completed [facility] Polio (IPV/OPV) 2007-12-30 00:00:00 Completed [facility] DTaP, Unspecified Formulation 2007-12-30 00:00:00 Completed [facility] IPV 2007-12-30 00:00:00 Completed [facility] DTAP 2007-12-30 00:00:00 Completed [facility] MMR 2007-12-30 00:00:00 Completed [facility] Polio (IPV/OPV) 2007-12-30 00:00:00 Completed [facility] DTaP, Unspecified Formulation 2007-12-30 00:00:00 Completed [facility] IPV 2007-12-30 00:00:00 Completed [facility] DTAP 2007-12-30 00:00:00 Completed [facility] MMR 2007-12-30 00:00:00 Completed [facility] Polio (IPV/OPV) 2007-12-30 00:00:00 Completed [facility] DTaP, Unspecified Formulation 2007-12-30 00:00:00 Completed [facility] IPV 2007-12-30 00:00:00 Completed [facility] DTAP 2007-12-30 00:00:00 Completed [facility] MMR 2007-12-30 00:00:00 Completed [facility] Polio (IPV/OPV) 2007-12-30 00:00:00 Completed [facility] DTaP, Unspecified Formulation 2007-12-30 00:00:00 Completed [facility] IPV 2007-12-30 00:00:00 Completed [facility] DTAP 2007-12-30 00:00:00 Completed [facility] MMR 2007-12-30 00:00:00 Completed [facility] Polio (IPV/OPV) 2007-12-30 00:00:00 Completed [facility] DTaP, Unspecified Formulation 2007-12-30 00:00:00 Completed [facility] IPV 2007-12-30 00:00:00 Completed [facility] DTAP 2007-12-30 00:00:00 Completed [facility] MMR 2007-12-30 00:00:00 Completed [facility] Polio (IPV/OPV) 2007-12-30 00:00:00 Completed [facility] DTaP, Unspecified Formulation 2007-12-30 00:00:00 Completed [facility] IPV 2007-12-30 00:00:00 Completed [facility] DTAP 2007-12-30 00:00:00 Completed [facility] MMR 2007-12-30 00:00:00 Completed [facility] DTAP 2007-12-30 00:00:00 Completed [facility] MMR 2007-12-30 00:00:00 [facility] [facility] Polio (IPV/OPV) 2007-12-30 00:00:00 Completed [facility] Polio (IPV/OPV) 2007-12-30 00:00:00 Completed [facility] DTaP, Unspecified Formulation 2007-12-30 00:00:00 Completed [facility] IPV 2007-12-30 00:00:00 Completed [facility] DTAP 2007-12-30 00:00:00 Completed [facility] MMR 2007-12-30 00:00:00 Completed [facility] Polio (IPV/OPV) 2007-12-30 00:00:00 Completed [facility] DTaP, Unspecified Formulation 2007-12-30 00:00:00 Completed [facility] IPV 2007-12-30 00:00:00 Completed [facility] DTAP 2007-12-30 00:00:00 Completed [facility] MMR 2007-12-30 00:00:00 Completed [facility] Polio (IPV/OPV) 2007-12-30 00:00:00 Completed [facility] DTaP, Unspecified Formulation 2007-12-30 00:00:00 Completed [facility] IPV 2007-12-30 00:00:00 Completed [facility] DTAP 2007-12-30 00:00:00 Completed [facility] MMR 2007-12-30 00:00:00 Completed [facility] Polio (IPV/OPV) 2007-12-30 00:00:00 Completed [facility] DTaP, Unspecified Formulation 2007-12-30 00:00:00 Completed [facility] IPV 2007-12-30 00:00:00 Completed [facility] DTAP 2007-12-30 00:00:00 Completed [facility] MMR 2007-12-30 00:00:00 Completed [facility] Polio (IPV/OPV) 2007-12-30 00:00:00 Completed [facility] DTaP, Unspecified Formulation 2007-12-30 00:00:00 Completed [facility] IPV 2007-12-30 00:00:00 Completed [facility] DTAP 2007-12-30 00:00:00 Completed [facility] MMR 2007-12-30 00:00:00 Completed [facility] Polio (IPV/OPV) 2007-12-30 00:00:00 Completed [facility] DTaP, Unspecified Formulation 2007-12-30 00:00:00 Completed [facility] IPV 2007-12-30 00:00:00 Completed [facility] DTAP 2007-12-30 00:00:00 Completed [facility] MMR 2007-12-30 00:00:00 Completed [facility] Polio (IPV/OPV) 2007-12-30 00:00:00 Completed [facility] DTaP, Unspecified Formulation 2007-12-30 00:00:00 Completed [facility] IPV 2007-12-30 00:00:00 Completed [facility] DTAP 2007-12-30 00:00:00 Completed [facility] MMR 2007-12-30 00:00:00 Completed [facility] Polio (IPV/OPV) 2007-12-30 00:00:00 Completed [facility] DTaP, Unspecified Formulation 2007-12-30 00:00:00 Completed [facility] IPV 2007-12-30 00:00:00 Completed [facility] DTAP 2007-12-30 00:00:00 Completed [facility] MMR 2007-12-30 00:00:00 Completed [facility] Polio (IPV/OPV) 2007-12-30 00:00:00 Completed [facility] DTaP, Unspecified Formulation 2007-12-30 00:00:00 Completed [facility] IPV 2007-12-30 00:00:00 Completed [facility] DTAP 2007-12-30 00:00:00 Completed [facility] MMR 2007-12-30 00:00:00 Completed [facility] Polio (IPV/OPV) 2007-12-30 00:00:00 Completed [facility] DTaP, Unspecified Formulation 2007-12-30 00:00:00 Completed [facility] IPV 2007-12-30 00:00:00 Completed [facility] DTAP 2007-12-30 00:00:00 Completed [facility] MMR 2007-12-30 00:00:00 Completed [facility] Polio (IPV/OPV) 2007-12-30 00:00:00 Completed [facility] DTAP 2007-12-30 00:00:00 Completed [facility] DTaP, Unspecified Formulation 2007-12-30 00:00:00 Completed [facility] MMR 2007-12-30 00:00:00 Completed [facility] IPV 2007-12-30 00:00:00 Completed [facility] Polio (IPV/OPV) 2007-12-30 00:00:00 Completed [facility] DTAP 2007-12-30 00:00:00 Completed [facility] MMR 2007-12-30 00:00:00 Completed [facility] Polio (IPV/OPV) 2007-12-30 00:00:00 Completed [facility] DTaP, Unspecified Formulation 2007-12-30 00:00:00 Completed [facility] IPV 2007-12-30 00:00:00 Completed [facility] DTAP 2007-12-30 00:00:00 Completed [facility] MMR 2007-12-30 00:00:00 Completed [facility] Polio (IPV/OPV) 2007-12-30 00:00:00 Completed [facility] DTaP, Unspecified Formulation 2007-12-30 00:00:00 Completed [facility] IPV 2007-12-30 00:00:00 Completed [facility] DTAP 2007-12-30 00:00:00 Completed [facility] MMR 2007-12-30 00:00:00 Completed [facility] Polio (IPV/OPV) 2007-12-30 00:00:00 Completed [facility] DTaP, Unspecified Formulation 2007-12-30 00:00:00 Completed [facility] IPV 2007-12-30 00:00:00 Completed [facility] DTAP 2007-12-30 00:00:00 Completed [facility] MMR 2007-12-30 00:00:00 Completed [facility] Polio (IPV/OPV) 2007-12-30 00:00:00 Completed [facility] DTaP, Unspecified Formulation 2007-12-30 00:00:00 Completed [facility] IPV 2007-12-30 00:00:00 Completed [facility] DTAP 2007-12-30 00:00:00 Completed [facility] MMR 2007-12-30 00:00:00 Completed [facility] Polio (IPV/OPV) 2007-12-30 00:00:00 Completed [facility] DTaP, Unspecified Formulation 2007-12-30 00:00:00 Completed [facility] IPV 2007-12-30 00:00:00 Completed [facility] DTAP 2007-12-30 00:00:00 Completed [facility] MMR 2007-12-30 00:00:00 Completed [facility] Polio (IPV/OPV) 2007-12-30 00:00:00 Completed [facility] DTaP, Unspecified Formulation 2007-12-30 00:00:00 Completed [facility] IPV 2007-12-30 00:00:00 Completed [facility] DTAP 2007-12-30 00:00:00 Completed [facility] MMR 2007-12-30 00:00:00 Completed [facility] Polio (IPV/OPV) 2007-12-30 00:00:00 Completed [facility] DTaP, Unspecified Formulation 2007-12-30 00:00:00 Completed [facility] IPV 2007-12-30 00:00:00 Completed [facility] DTAP 2007-12-30 00:00:00 Completed [facility] MMR 2007-12-30 00:00:00 Completed [facility] Polio (IPV/OPV) 2007-12-30 00:00:00 Completed [facility] DTaP, Unspecified Formulation 2007-12-30 00:00:00 Completed [facility] IPV 2007-12-30 00:00:00 Completed [facility] DTAP 2007-12-30 00:00:00 Completed [facility] MMR 2007-12-30 00:00:00 Completed [facility] Polio (IPV/OPV) 2007-12-30 00:00:00 Completed [facility] DTaP, Unspecified Formulation 2007-12-30 00:00:00 Completed [facility] IPV 2007-12-30 00:00:00 Completed [facility] DTAP 2007-12-30 00:00:00 Completed [facility] MMR 2007-12-30 00:00:00 Completed [facility] Polio (IPV/OPV) 2007-12-30 00:00:00 Completed [facility] DTaP, Unspecified Formulation 2007-12-30 00:00:00 Completed [facility] IPV 2007-12-30 00:00:00 Completed [facility] DTAP 2007-12-30 00:00:00 Completed [facility] MMR 2007-12-30 00:00:00 Completed [facility] Polio (IPV/OPV) 2007-12-30 00:00:00 Completed [facility] DTaP, Unspecified Formulation 2007-12-30 00:00:00 Completed [facility] DTAP 2007-12-30 00:00:00 Completed [facility] IPV 2007-12-30 00:00:00 Completed [facility] MMR 2007-12-30 00:00:00 Completed [facility] Polio (IPV/OPV) 2007-12-30 00:00:00 Completed [facility] DTAP 2007-12-30 00:00:00 Completed [facility] MMR 2007-12-30 00:00:00 Completed [facility] Polio (IPV/OPV) 2007-12-30 00:00:00 Completed [facility] DTaP, Unspecified Formulation 2007-12-30 00:00:00 Completed [facility] IPV 2007-12-30 00:00:00 Completed [facility] DTAP 2007-12-30 00:00:00 Completed [facility] MMR 2007-12-30 00:00:00 Completed [facility] Polio (IPV/OPV) 2007-12-30 00:00:00 Completed [facility] DTaP, Unspecified Formulation 2007-12-30 00:00:00 Completed [facility] IPV 2007-12-30 00:00:00 Completed [facility] DTAP 2007-12-30 00:00:00 Completed [facility] MMR 2007-12-30 00:00:00 Completed [facility] Polio (IPV/OPV) 2007-12-30 00:00:00 Completed [facility] DTaP, Unspecified Formulation 2007-12-30 00:00:00 Completed [facility] IPV 2007-12-30 00:00:00 Completed [facility] DTAP 2007-12-30 00:00:00 Completed [facility] MMR 2007-12-30 00:00:00 Completed [facility] Polio (IPV/OPV) 2007-12-30 00:00:00 Completed [facility] DTaP, Unspecified Formulation 2007-12-30 00:00:00 Completed [facility] IPV 2007-12-30 00:00:00 Completed [facility] DTAP 2007-12-30 00:00:00 Completed [facility] MMR 2007-12-30 00:00:00 Completed [facility] Polio (IPV/OPV) 2007-12-30 00:00:00 Completed [facility] DTaP, Unspecified Formulation 2007-12-30 00:00:00 Completed [facility] IPV 2007-12-30 00:00:00 Completed [facility] DTAP 2007-12-30 00:00:00 Completed [facility] DTAP 2007-12-30 00:00:00 Completed [facility] MMR 2007-12-30 00:00:00 Completed [facility] Polio (IPV/OPV) 2007-12-30 00:00:00 Completed [facility] DTaP, Unspecified Formulation 2007-12-30 00:00:00 Completed [facility] IPV 2007-12-30 00:00:00 Completed [facility] DTAP 2007-12-30 00:00:00 Completed [facility] MMR 2007-12-30 00:00:00 Completed [facility] Polio (IPV/OPV) 2007-12-30 00:00:00 Completed [facility] MMR 2007-12-30 00:00:00 Completed [facility] DTaP, Unspecified Formulation 2007-12-30 00:00:00 Completed [facility] IPV 2007-12-30 00:00:00 Completed [facility] DTAP 2007-12-30 00:00:00 Completed [facility] MMR 2007-12-30 00:00:00 Completed [facility] Polio (IPV/OPV) 2007-12-30 00:00:00 Completed [facility] DTaP, Unspecified Formulation 2007-12-30 00:00:00 Completed [facility] IPV 2007-12-30 00:00:00 Completed [facility] DTAP 2007-12-30 00:00:00 Completed [facility] MMR 2007-12-30 00:00:00 Completed [facility] Polio (IPV/OPV) 2007-12-30 00:00:00 Completed [facility] Polio (IPV/OPV) 2007-12-30 00:00:00 Completed [facility] DTaP, Unspecified Formulation 2007-12-30 00:00:00 Completed [facility] IPV 2007-12-30 00:00:00 Completed [facility] DTAP 2007-12-30 00:00:00 Completed [facility] MMR 2007-12-30 00:00:00 Completed [facility] Polio (IPV/OPV) 2007-12-30 00:00:00 Completed [facility] DTaP, Unspecified Formulation 2007-12-30 00:00:00 Completed [facility] IPV 2007-12-30 00:00:00 Completed [facility] DTAP 2007-12-30 00:00:00 Completed [facility] MMR 2007-12-30 00:00:00 Completed [facility] Polio (IPV/OPV) 2007-12-30 00:00:00 Completed [facility] DTaP, Unspecified Formulation 2007-12-30 00:00:00 Completed [facility] IPV 2007-12-30 00:00:00 Completed [facility] DTAP 2007-12-30 00:00:00 Completed [facility] MMR 2007-12-30 00:00:00 Completed [facility] Polio (IPV/OPV) 2007-12-30 00:00:00 Completed [facility] DTAP 2007-12-30 00:00:00 Completed [facility] MMR 2007-12-30 00:00:00 Completed [facility] Polio (IPV/OPV) 2007-12-30 00:00:00 Completed [facility] DTaP, Unspecified Formulation 2007-12-30 00:00:00 Completed [facility] IPV 2007-12-30 00:00:00 Completed [facility] DTAP 2007-12-30 00:00:00 Completed [facility] MMR 2007-12-30 00:00:00 Completed [facility] Polio (IPV/OPV) 2007-12-30 00:00:00 Completed [facility] DTaP, Unspecified Formulation 2007-12-30 00:00:00 Completed [facility] IPV 2007-12-30 00:00:00 Completed [facility] DTAP 2007-12-30 00:00:00 Completed [facility] MMR 2007-12-30 00:00:00 Completed [facility] Polio (IPV/OPV) 2007-12-30 00:00:00 Completed [facility] DTaP, Unspecified Formulation 2007-12-30 00:00:00 Completed [facility] IPV 2007-12-30 00:00:00 Completed [facility] DTAP 2007-12-30 00:00:00 Completed [facility] MMR 2007-12-30 00:00:00 Completed [facility] Polio (IPV/OPV) 2007-12-30 00:00:00 Completed [facility] DTaP, Unspecified Formulation 2007-12-30 00:00:00 Completed [facility] IPV 2007-12-30 00:00:00 Completed [facility] DTAP 2007-12-30 00:00:00 Completed [facility] MMR 2007-12-30 00:00:00 Completed [facility] Polio (IPV/OPV) 2007-12-30 00:00:00 Completed [facility] DTaP, Unspecified Formulation 2007-12-30 00:00:00 Completed [facility] IPV 2007-12-30 00:00:00 Completed [facility] DTAP 2007-12-30 00:00:00 Completed [facility] MMR 2007-12-30 00:00:00 Completed [facility] Polio (IPV/OPV) 2007-12-30 00:00:00 Completed [facility] DTaP, Unspecified Formulation 2007-12-30 00:00:00 Completed [facility] IPV 2007-12-30 00:00:00 Completed [facility] DTAP 2007-12-30 00:00:00 Completed [facility] MMR 2007-12-30 00:00:00 Completed [facility] Polio (IPV/OPV) 2007-12-30 00:00:00 Completed [facility] DTaP, Unspecified Formulation 2007-12-30 00:00:00 Completed [facility] IPV 2007-12-30 00:00:00 Completed [facility] DTAP 2007-12-30 00:00:00 Completed [facility] MMR 2007-12-30 00:00:00 Completed [facility] Polio (IPV/OPV) 2007-12-30 00:00:00 Completed [facility] DTaP, Unspecified Formulation 2007-12-30 00:00:00 Completed [facility] IPV 2007-12-30 00:00:00 Completed [facility] DTAP 2007-12-30 00:00:00 Completed [facility] MMR 2007-12-30 00:00:00 Completed [facility] Polio (IPV/OPV) 2007-12-30 00:00:00 Completed [facility] DTaP, Unspecified Formulation 2007-12-30 00:00:00 Completed [facility] IPV 2007-12-30 00:00:00 Completed [facility] DTAP 2007-12-30 00:00:00 Completed [facility] MMR 2007-12-30 00:00:00 Completed [facility] Polio (IPV/OPV) 2007-12-30 00:00:00 Completed [facility] DTaP, Unspecified Formulation 2007-12-30 00:00:00 Completed [facility] IPV 2007-12-30 00:00:00 Completed [facility] DTAP 2007-12-30 00:00:00 Completed [facility] DTAP 2007-12-30 00:00:00 Completed [facility] MMR 2007-12-30 00:00:00 Completed [facility] Polio (IPV/OPV) 2007-12-30 00:00:00 Completed [facility] MMR 2007-12-30 00:00:00 Completed [facility] DTaP, Unspecified Formulation 2007-12-30 00:00:00 Completed [facility] Polio (IPV/OPV) 2007-12-30 00:00:00 Completed [facility] IPV 2007-12-30 00:00:00 Completed [facility] DTAP 2007-12-30 00:00:00 Completed [facility] MMR 2007-12-30 00:00:00 Completed [facility] Polio (IPV/OPV) 2007-12-30 00:00:00 Completed [facility] DTaP, Unspecified Formulation 2007-12-30 00:00:00 Completed [facility] IPV 2007-12-30 00:00:00 Completed [facility] DTAP 2007-12-30 00:00:00 Completed [facility] MMR 2007-12-30 00:00:00 Completed [facility] Polio (IPV/OPV) 2007-12-30 00:00:00 Completed [facility] DTaP, Unspecified Formulation 2007-12-30 00:00:00 Completed [facility] IPV 2007-12-30 00:00:00 Completed [facility] DTAP 2007-12-30 00:00:00 Completed [facility] MMR 2007-12-30 00:00:00 Completed [facility] Polio (IPV/OPV) 2007-12-30 00:00:00 Completed [facility] DTaP, Unspecified Formulation 2007-12-30 00:00:00 Completed [facility] IPV 2007-12-30 00:00:00 Completed [facility] DTAP 2007-12-30 00:00:00 Completed [facility] MMR 2007-12-30 00:00:00 Completed [facility] Polio (IPV/OPV) 2007-12-30 00:00:00 Completed [facility] DTaP, Unspecified Formulation 2007-12-30 00:00:00 Completed [facility] IPV 2007-12-30 00:00:00 Completed [facility] DTAP 2007-12-30 00:00:00 Completed [facility] MMR 2007-12-30 00:00:00 Completed [facility] Polio (IPV/OPV) 2007-12-30 00:00:00 Completed [facility] DTaP, Unspecified Formulation 2007-12-30 00:00:00 Completed [facility] IPV 2007-12-30 00:00:00 Completed [facility] HEPATITIS A 2007-12-14 00:00:00 Completed [facility] HEPATITIS A 2007-12-14 00:00:00 Completed [facility] HEPATITIS A 2007-12-14 00:00:00 Completed [facility] HEPATITIS A 2007-12-14 00:00:00 Completed [facility] HEPATITIS A 2007-12-14 00:00:00 Completed [facility] HEPATITIS A 2007-12-14 00:00:00 Completed [facility] HEPATITIS A 2007-12-14 00:00:00 Completed [facility] HEPATITIS A 2007-12-14 00:00:00 Completed [facility] HEPATITIS A 2007-12-14 00:00:00 Completed [facility] HEPATITIS A 2007-12-14 00:00:00 Completed [facility] HEPATITIS A 2007-12-14 00:00:00 Completed [facility] HEPATITIS A 2007-12-14 00:00:00 Completed [facility] HEPATITIS A 2007-12-14 00:00:00 Completed [facility] HEPATITIS A 2007-12-14 00:00:00 Completed [facility] HEPATITIS A 2007-12-14 00:00:00 Completed [facility] HEPATITIS A 2007-12-14 00:00:00 Completed [facility] HEPATITIS A 2007-12-14 00:00:00 Completed [facility] HEPATITIS A 2007-12-14 00:00:00 Completed [facility] HEPATITIS A 2007-12-14 00:00:00 Completed [facility] HEPATITIS A 2007-12-14 00:00:00 Completed [facility] HEPATITIS A 2007-12-14 00:00:00 Completed [facility] HEPATITIS A 2007-12-14 00:00:00 Completed [facility] HEPATITIS A 2007-12-14 00:00:00 Completed [facility] HEPATITIS A 2007-12-14 00:00:00 Completed [facility] HEPATITIS A 2007-12-14 00:00:00 Completed [facility] HEPATITIS A 2007-12-14 00:00:00 Completed [facility] HEPATITIS A 2007-12-14 00:00:00 Completed [facility] HEPATITIS A 2007-12-14 00:00:00 Completed [facility] HEPATITIS A 2007-12-14 00:00:00 Completed [facility] HEPATITIS A 2007-12-14 00:00:00 Completed [facility] HEPATITIS A 2007-12-14 00:00:00 Completed [facility] HEPATITIS A 2007-12-14 00:00:00 Completed [facility] HEPATITIS A 2007-12-14 00:00:00 Completed [facility] HEPATITIS A 2007-12-14 00:00:00 Completed [facility] HEPATITIS A 2007-12-14 00:00:00 Completed [facility] HEPATITIS A 2007-12-14 00:00:00 Completed [facility] HEPATITIS A 2007-12-14 00:00:00 Completed [facility] HEPATITIS A 2007-12-14 00:00:00 Completed [facility] HEPATITIS A 2007-12-14 00:00:00 Completed [facility] HEPATITIS A 2007-12-14 00:00:00 Completed [facility] HEPATITIS A 2007-12-14 00:00:00 Completed [facility] HEPATITIS A 2007-12-14 00:00:00 Completed [facility] HEPATITIS A 2007-12-14 00:00:00 Completed [facility] HEPATITIS A 2007-12-14 00:00:00 Completed [facility] HEPATITIS A 2007-12-14 00:00:00 Completed [facility] HEPATITIS A 2007-12-14 00:00:00 Completed [facility] HEPATITIS A 2007-12-14 00:00:00 Completed [facility] HEPATITIS A 2007-12-14 00:00:00 Completed [facility] HEPATITIS A 2007-12-14 00:00:00 Completed [facility] HEPATITIS A 2007-12-14 00:00:00 Completed [facility] HEPATITIS A 2007-12-14 00:00:00 Completed [facility] HEPATITIS A 2007-12-14 00:00:00 Completed [facility] HEPATITIS A 2007-12-14 00:00:00 Completed [facility] HEPATITIS A 2007-12-14 00:00:00 Completed [facility] HEPATITIS A 2007-12-14 00:00:00 Completed [facility] HEPATITIS A 2007-12-14 00:00:00 Completed [facility] HEPATITIS A 2007-12-14 00:00:00 Completed [facility] HEPATITIS A 2007-12-14 00:00:00 [facility] [facility] 2007[facility]12-14 00:00:00 Completed [facility] HEPATITIS A 2007-12-14 00:00:00 Completed [facility] HEPATITIS A 2007-12-14 00:00:00 Completed [facility] HEPATITIS A 2007-12-14 00:00:00 Completed [facility] HEPATITIS A 2007-12-14 00:00:00 Completed [facility] HEPATITIS A 2007-12-14 00:00:00 Completed [facility] HEPATITIS A 2007-12-14 00:00:00 Completed [facility] HEPATITIS A 2007-12-14 00:00:00 Completed [facility] HEPATITIS A 2007-12-14 00:00:00 Completed [facility] HEPATITIS A 2007-12-14 00:00:00 Completed [facility] HEPATITIS A 2007-12-14 00:00:00 Completed [facility] DTAP 2006-06-12 00:00:00 Completed [facility] HEPATITIS A 2006-06-12 00:00:00 Completed [facility] Pneumococcal 7 Conjugate, PCV7 (Prevnar7) 2006-06-12 00:00:00 Completed [facility] HIB 4 Dose Schedule 2006-06-12 00:00:00 Completed [facility] Influenza Virus Vaccine 2006-06-12 00:00:00 Completed [facility] DTaP, Unspecified Formulation 2006-06-12 00:00:00 Completed [facility] Flu Trivalent 2006-06-12 00:00:00 Completed [facility] Hib-HbOC 2006-06-12 00:00:00 Completed [facility] DTAP 2006-06-12 00:00:00 Completed [facility] HEPATITIS A 2006-06-12 00:00:00 Completed [facility] Pneumococcal 7 Conjugate, PCV7 (Prevnar7) 2006-06-12 00:00:00 Completed [facility] HIB 4 Dose Schedule 2006-06-12 00:00:00 Completed [facility] Influenza Virus Vaccine 2006-06-12 00:00:00 Completed [facility] DTaP, Unspecified Formulation 2006-06-12 00:00:00 Completed [facility] Flu Trivalent 2006-06-12 00:00:00 Completed [facility] Hib-HbOC 2006-06-12 00:00:00 Completed [facility] DTAP 2006-06-12 00:00:00 Completed [facility] HEPATITIS A 2006-06-12 00:00:00 Completed [facility] Pneumococcal 7 Conjugate, PCV7 (Prevnar7) 2006-06-12 00:00:00 Completed [facility] HIB 4 Dose Schedule 2006-06-12 00:00:00 Completed [facility] Influenza Virus Vaccine 2006-06-12 00:00:00 Completed [facility] DTaP, Unspecified Formulation 2006-06-12 00:00:00 Completed [facility] Flu Trivalent 2006-06-12 00:00:00 Completed [facility] Hib-HbOC 2006-06-12 00:00:00 Completed [facility] DTAP 2006-06-12 00:00:00 Completed [facility] DTAP 2006-06-12 00:00:00 Completed [facility] HEPATITIS A 2006-06-12 00:00:00 Completed [facility] Pneumococcal 7 Conjugate, PCV7 (Prevnar7) 2006-06-12 00:00:00 Completed [facility] HEPATITIS A 2006-06-12 00:00:00 Completed [facility] HIB 4 Dose Schedule 2006-06-12 00:00:00 Completed [facility] Influenza Virus Vaccine 2006-06-12 00:00:00 Completed [facility] DTaP, Unspecified Formulation 2006-06-12 00:00:00 Completed [facility] Flu Trivalent 2006-06-12 00:00:00 Completed [facility] Hib-HbOC 2006-06-12 00:00:00 Completed [facility] DTAP 2006-06-12 00:00:00 Completed [facility] HEPATITIS A 2006-06-12 00:00:00 Completed [facility] Pneumococcal 7 Conjugate, PCV7 (Prevnar7) 2006-06-12 00:00:00 Completed [facility] Pneumococcal 7 Conjugate, PCV7 (Prevnar7) 2006-06-12 00:00:00 Completed [facility] HIB 4 Dose Schedule 2006-06-12 00:00:00 Completed [facility] Influenza Virus Vaccine 2006-06-12 00:00:00 Completed [facility] DTaP, Unspecified Formulation 2006-06-12 00:00:00 Completed [facility] Flu Trivalent 2006-06-12 00:00:00 Completed [facility] Hib-HbOC 2006-06-12 00:00:00 Completed [facility] DTAP 2006-06-12 00:00:00 Completed [facility] HEPATITIS A 2006-06-12 00:00:00 Completed [facility] Pneumococcal 7 Conjugate, PCV7 (Prevnar7) 2006-06-12 00:00:00 Completed [facility] HIB 4 Dose Schedule 2006-06-12 00:00:00 Completed [facility] Influenza Virus Vaccine 2006-06-12 00:00:00 Completed [facility] DTaP, Unspecified Formulation 2006-06-12 00:00:00 Completed [facility] Flu Trivalent 2006-06-12 00:00:00 Completed [facility] Hib-HbOC 2006-06-12 00:00:00 Completed [facility] DTAP 2006-06-12 00:00:00 Completed [facility] HEPATITIS A 2006-06-12 00:00:00 Completed [facility] Pneumococcal 7 Conjugate, PCV7 (Prevnar7) 2006-06-12 00:00:00 Completed [facility] HIB 4 Dose Schedule 2006-06-12 00:00:00 Completed [facility] Influenza Virus Vaccine 2006-06-12 00:00:00 Completed [facility] DTaP, Unspecified Formulation 2006-06-12 00:00:00 Completed [facility] Flu Trivalent 2006-06-12 00:00:00 Completed [facility] Hib-HbOC 2006-06-12 00:00:00 Completed [facility] HIB 4 Dose Schedule 2006-06-12 00:00:00 Completed [facility] Influenza Virus Vaccine 2006-06-12 00:00:00 Completed [facility] DTAP 2006-06-12 00:00:00 Completed [facility] HEPATITIS A 2006-06-12 00:00:00 Completed [facility] Pneumococcal 7 Conjugate, PCV7 (Prevnar7) 2006-06-12 00:00:00 Completed [facility] HIB 4 Dose Schedule 2006-06-12 00:00:00 Completed [facility] Influenza Virus Vaccine 2006-06-12 00:00:00 Completed [facility] DTaP, Unspecified Formulation 2006-06-12 00:00:00 Completed [facility] Flu Trivalent 2006-06-12 00:00:00 Completed [facility] Hib-HbOC 2006-06-12 00:00:00 Completed [facility] DTAP 2006-06-12 00:00:00 Completed [facility] HEPATITIS A 2006-06-12 00:00:00 Completed [facility] Pneumococcal 7 Conjugate, PCV7 (Prevnar7) 2006-06-12 00:00:00 Completed [facility] HIB 4 Dose Schedule 2006-06-12 00:00:00 Completed [facility] Influenza Virus Vaccine 2006-06-12 00:00:00 Completed [facility] DTaP, Unspecified Formulation 2006-06-12 00:00:00 Completed [facility] Flu Trivalent 2006-06-12 00:00:00 Completed [facility] Hib-HbOC 2006-06-12 00:00:00 Completed [facility] DTAP 2006-06-12 00:00:00 Completed [facility] HEPATITIS A 2006-06-12 00:00:00 Completed [facility] Pneumococcal 7 Conjugate, PCV7 (Prevnar7) 2006-06-12 00:00:00 Completed [facility] HIB 4 Dose Schedule 2006-06-12 00:00:00 Completed [facility] Influenza Virus Vaccine 2006-06-12 00:00:00 Completed [facility] DTaP, Unspecified Formulation 2006-06-12 00:00:00 Completed [facility] Flu Trivalent 2006-06-12 00:00:00 Completed [facility] Hib-HbOC 2006-06-12 00:00:00 Completed [facility] DTAP 2006-06-12 00:00:00 Completed [facility] HEPATITIS A 2006-06-12 00:00:00 Completed [facility] Pneumococcal 7 Conjugate, PCV7 (Prevnar7) 2006-06-12 00:00:00 Completed [facility] HIB 4 Dose Schedule 2006-06-12 00:00:00 Completed [facility] Influenza Virus Vaccine 2006-06-12 00:00:00 Completed [facility] DTaP, Unspecified Formulation 2006-06-12 00:00:00 Completed [facility] Flu Trivalent 2006-06-12 00:00:00 Completed [facility] Hib-HbOC 2006-06-12 00:00:00 Completed [facility] DTAP 2006-06-12 00:00:00 Completed [facility] HEPATITIS A 2006-06-12 00:00:00 Completed [facility] DTAP 2006-06-12 00:00:00 Completed [facility] HEPATITIS A 2006-06-12 00:00:00 Completed [facility] Pneumococcal 7 Conjugate, PCV7 (Prevnar7) 2006-06-12 00:00:00 Completed [facility] HIB 4 Dose Schedule 2006-06-12 00:00:00 Completed [facility] Influenza Virus Vaccine 2006-06-12 00:00:00 Completed [facility] DTaP, Unspecified Formulation 2006-06-12 00:00:00 Completed [facility] Flu Trivalent 2006-06-12 00:00:00 Completed [facility] Hib-HbOC 2006-06-12 00:00:00 Completed [facility] DTAP 2006-06-12 00:00:00 Completed [facility] HEPATITIS A 2006-06-12 00:00:00 Completed [facility] Pneumococcal 7 Conjugate, PCV7 (Prevnar7) 2006-06-12 00:00:00 Completed [facility] Pneumococcal 7 Conjugate, PCV7 (Prevnar7) 2006-06-12 00:00:00 Completed [facility] HIB 4 Dose Schedule 2006-06-12 00:00:00 Completed [facility] Influenza Virus Vaccine 2006-06-12 00:00:00 Completed [facility] DTaP, Unspecified Formulation 2006-06-12 00:00:00 Completed [facility] Flu Trivalent 2006-06-12 00:00:00 Completed [facility] Hib-HbOC 2006-06-12 00:00:00 Completed [facility] DTAP 2006-06-12 00:00:00 Completed [facility] HEPATITIS A 2006-06-12 00:00:00 Completed [facility] Pneumococcal 7 Conjugate, PCV7 (Prevnar7) 2006-06-12 00:00:00 Completed [facility] HIB 4 Dose Schedule 2006-06-12 00:00:00 Completed [facility] Influenza Virus Vaccine 2006-06-12 00:00:00 Completed [facility] DTaP, Unspecified Formulation 2006-06-12 00:00:00 Completed [facility] Flu Trivalent 2006-06-12 00:00:00 Completed [facility] Hib-HbOC 2006-06-12 00:00:00 Completed [facility] DTAP 2006-06-12 00:00:00 Completed [facility] HEPATITIS A 2006-06-12 00:00:00 Completed [facility] Pneumococcal 7 Conjugate, PCV7 (Prevnar7) 2006-06-12 00:00:00 Completed [facility] HIB 4 Dose Schedule 2006-06-12 00:00:00 Completed [facility] Influenza Virus Vaccine 2006-06-12 00:00:00 Completed [facility] DTaP, Unspecified Formulation 2006-06-12 00:00:00 Completed [facility] Flu Trivalent 2006-06-12 00:00:00 Completed [facility] Hib-HbOC 2006-06-12 00:00:00 Completed [facility] HIB 4 Dose Schedule 2006-06-12 00:00:00 Completed [facility] Influenza Virus Vaccine 2006-06-12 00:00:00 Completed [facility] DTAP 2006-06-12 00:00:00 Completed [facility] HEPATITIS A 2006-06-12 00:00:00 Completed [facility] Pneumococcal 7 Conjugate, PCV7 (Prevnar7) 2006-06-12 00:00:00 Completed [facility] HIB 4 Dose Schedule 2006-06-12 00:00:00 Completed [facility] Influenza Virus Vaccine 2006-06-12 00:00:00 Completed [facility] DTaP, Unspecified Formulation 2006-06-12 00:00:00 Completed [facility] Flu Trivalent 2006-06-12 00:00:00 Completed [facility] Hib-HbOC 2006-06-12 00:00:00 Completed [facility] DTAP 2006-06-12 00:00:00 Completed [facility] HEPATITIS A 2006-06-12 00:00:00 Completed [facility] Pneumococcal 7 Conjugate, PCV7 (Prevnar7) 2006-06-12 00:00:00 Completed [facility] HIB 4 Dose Schedule 2006-06-12 00:00:00 Completed [facility] Influenza Virus Vaccine 2006-06-12 00:00:00 Completed [facility] DTaP, Unspecified Formulation 2006-06-12 00:00:00 Completed [facility] Flu Trivalent 2006-06-12 00:00:00 Completed [facility] Hib-HbOC 2006-06-12 00:00:00 Completed [facility] DTAP 2006-06-12 00:00:00 Completed [facility] HEPATITIS A 2006-06-12 00:00:00 Completed [facility] Pneumococcal 7 Conjugate, PCV7 (Prevnar7) 2006-06-12 00:00:00 Completed [facility] HIB 4 Dose Schedule 2006-06-12 00:00:00 Completed [facility] Influenza Virus Vaccine 2006-06-12 00:00:00 Completed [facility] DTaP, Unspecified Formulation 2006-06-12 00:00:00 Completed [facility] Flu Trivalent 2006-06-12 00:00:00 Completed [facility] Hib-HbOC 2006-06-12 00:00:00 Completed [facility] DTAP 2006-06-12 00:00:00 Completed [facility] HEPATITIS A 2006-06-12 00:00:00 Completed [facility] Pneumococcal 7 Conjugate, PCV7 (Prevnar7) 2006-06-12 00:00:00 Completed [facility] HIB 4 Dose Schedule 2006-06-12 00:00:00 Completed [facility] Influenza Virus Vaccine 2006-06-12 00:00:00 Completed [facility] DTaP, Unspecified Formulation 2006-06-12 00:00:00 Completed [facility] Flu Trivalent 2006-06-12 00:00:00 Completed [facility] Hib-HbOC 2006-06-12 00:00:00 Completed [facility] DTAP 2006-06-12 00:00:00 Completed [facility] HEPATITIS A 2006-06-12 00:00:00 Completed [facility] Pneumococcal 7 Conjugate, PCV7 (Prevnar7) 2006-06-12 00:00:00 Completed [facility] HIB 4 Dose Schedule 2006-06-12 00:00:00 Completed [facility] Influenza Virus Vaccine 2006-06-12 00:00:00 Completed [facility] DTaP, Unspecified Formulation 2006-06-12 00:00:00 Completed [facility] Flu Trivalent 2006-06-12 00:00:00 Completed [facility] Hib-HbOC 2006-06-12 00:00:00 Completed [facility] DTAP 2006-06-12 00:00:00 Completed [facility] HEPATITIS A 2006-06-12 00:00:00 Completed [facility] Pneumococcal 7 Conjugate, PCV7 (Prevnar7) 2006-06-12 00:00:00 Completed [facility] HIB 4 Dose Schedule 2006-06-12 00:00:00 Completed [facility] Influenza Virus Vaccine 2006-06-12 00:00:00 Completed [facility] DTaP, Unspecified Formulation 2006-06-12 00:00:00 Completed [facility] Flu Trivalent 2006-06-12 00:00:00 Completed [facility] Hib-HbOC 2006-06-12 00:00:00 Completed [facility] DTAP 2006-06-12 00:00:00 Completed [facility] HEPATITIS A 2006-06-12 00:00:00 Completed [facility] Pneumococcal 7 Conjugate, PCV7 (Prevnar7) 2006-06-12 00:00:00 Completed [facility] HIB 4 Dose Schedule 2006-06-12 00:00:00 Completed [facility] Influenza Virus Vaccine 2006-06-12 00:00:00 Completed [facility] DTaP, Unspecified Formulation 2006-06-12 00:00:00 Completed [facility] DTAP 2006-06-12 00:00:00 Completed [facility] Flu Trivalent 2006-06-12 00:00:00 Completed [facility] Hib-HbOC 2006-06-12 00:00:00 Completed [facility] HEPATITIS A 2006-06-12 00:00:00 Completed [facility] DTAP 2006-06-12 00:00:00 Completed [facility] HEPATITIS A 2006-06-12 00:00:00 Completed [facility] Pneumococcal 7 Conjugate, PCV7 (Prevnar7) 2006-06-12 00:00:00 Completed [facility] HIB 4 Dose Schedule 2006-06-12 00:00:00 Completed [facility] Influenza Virus Vaccine 2006-06-12 00:00:00 Completed [facility] DTaP, Unspecified Formulation 2006-06-12 00:00:00 Completed [facility] Flu Trivalent 2006-06-12 00:00:00 Completed [facility] Hib-HbOC 2006-06-12 00:00:00 Completed [facility] Pneumococcal 7 Conjugate, PCV7 (Prevnar7) 2006-06-12 00:00:00 Completed [facility] DTAP 2006-06-12 00:00:00 Completed [facility] HEPATITIS A 2006-06-12 00:00:00 Completed [facility] Pneumococcal 7 Conjugate, PCV7 (Prevnar7) 2006-06-12 00:00:00 Completed [facility] HIB 4 Dose Schedule 2006-06-12 00:00:00 Completed [facility] Influenza Virus Vaccine 2006-06-12 00:00:00 Completed [facility] DTaP, Unspecified Formulation 2006-06-12 00:00:00 Completed [facility] Flu Trivalent 2006-06-12 00:00:00 Completed [facility] Hib-HbOC 2006-06-12 00:00:00 Completed [facility] DTAP 2006-06-12 00:00:00 Completed [facility] HEPATITIS A 2006-06-12 00:00:00 Completed [facility] Pneumococcal 7 Conjugate, PCV7 (Prevnar7) 2006-06-12 00:00:00 Completed [facility] HIB 4 Dose Schedule 2006-06-12 00:00:00 Completed [facility] Influenza Virus Vaccine 2006-06-12 00:00:00 Completed [facility] DTaP, Unspecified Formulation 2006-06-12 00:00:00 Completed [facility] Flu Trivalent 2006-06-12 00:00:00 Completed [facility] Hib-HbOC 2006-06-12 00:00:00 Completed [facility] DTAP 2006-06-12 00:00:00 Completed [facility] HEPATITIS A 2006-06-12 00:00:00 Completed [facility] HIB 4 Dose Schedule 2006-06-12 00:00:00 Completed [facility] Pneumococcal 7 Conjugate, PCV7 (Prevnar7) 2006-06-12 00:00:00 Completed [facility] HIB 4 Dose Schedule 2006-06-12 00:00:00 Completed [facility] Influenza Virus Vaccine 2006-06-12 00:00:00 Completed [facility] DTaP, Unspecified Formulation 2006-06-12 00:00:00 Completed [facility] DTAP 2006-06-12 00:00:00 Completed [facility] Influenza Virus Vaccine 2006-06-12 00:00:00 Completed [facility] Flu Trivalent 2006-06-12 00:00:00 Completed [facility] Hib-HbOC 2006-06-12 00:00:00 Completed [facility] DTAP 2006-06-12 00:00:00 Completed [facility] HEPATITIS A 2006-06-12 00:00:00 Completed [facility] Pneumococcal 7 Conjugate, PCV7 (Prevnar7) 2006-06-12 00:00:00 Completed [facility] HIB 4 Dose Schedule 2006-06-12 00:00:00 Completed [facility] Influenza Virus Vaccine 2006-06-12 00:00:00 Completed [facility] DTaP, Unspecified Formulation 2006-06-12 00:00:00 Completed [facility] Flu Trivalent 2006-06-12 00:00:00 Completed [facility] Hib-HbOC 2006-06-12 00:00:00 Completed [facility] HEPATITIS A 2006-06-12 00:00:00 Completed [facility] DTAP 2006-06-12 00:00:00 Completed [facility] HEPATITIS A 2006-06-12 00:00:00 Completed [facility] Pneumococcal 7 Conjugate, PCV7 (Prevnar7) 2006-06-12 00:00:00 Completed [facility] HIB 4 Dose Schedule 2006-06-12 00:00:00 Completed [facility] Influenza Virus Vaccine 2006-06-12 00:00:00 Completed [facility] DTaP, Unspecified Formulation 2006-06-12 00:00:00 Completed [facility] Flu Trivalent 2006-06-12 00:00:00 Completed [facility] Hib-HbOC 2006-06-12 00:00:00 Completed [facility] DTAP 2006-06-12 00:00:00 Completed [facility] HEPATITIS A 2006-06-12 00:00:00 Completed [facility] Pneumococcal 7 Conjugate, PCV7 (Prevnar7) 2006-06-12 00:00:00 Completed [facility] HIB 4 Dose Schedule 2006-06-12 00:00:00 Completed [facility] Influenza Virus Vaccine 2006-06-12 00:00:00 Completed [facility] DTaP, Unspecified Formulation 2006-06-12 00:00:00 Completed [facility] Flu Trivalent 2006-06-12 00:00:00 Completed [facility] Hib-HbOC 2006-06-12 00:00:00 Completed [facility] DTAP 2006-06-12 00:00:00 Completed [facility] HEPATITIS A 2006-06-12 00:00:00 Completed [facility] Pneumococcal 7 Conjugate, PCV7 (Prevnar7) 2006-06-12 00:00:00 Completed [facility] HIB 4 Dose Schedule 2006-06-12 00:00:00 Completed [facility] Influenza Virus Vaccine 2006-06-12 00:00:00 Completed [facility] DTaP, Unspecified Formulation 2006-06-12 00:00:00 Completed [facility] Flu Trivalent 2006-06-12 00:00:00 Completed [facility] Hib-HbOC 2006-06-12 00:00:00 Completed [facility] DTAP 2006-06-12 00:00:00 Completed [facility] HEPATITIS A 2006-06-12 00:00:00 Completed [facility] Pneumococcal 7 Conjugate, PCV7 (Prevnar7) 2006-06-12 00:00:00 Completed [facility] HIB 4 Dose Schedule 2006-06-12 00:00:00 Completed [facility] Influenza Virus Vaccine 2006-06-12 00:00:00 Completed [facility] DTaP, Unspecified Formulation 2006-06-12 00:00:00 Completed [facility] Flu Trivalent 2006-06-12 00:00:00 Completed [facility] Hib-HbOC 2006-06-12 00:00:00 Completed [facility] DTAP 2006-06-12 00:00:00 Completed [facility] HEPATITIS A 2006-06-12 00:00:00 Completed [facility] Pneumococcal 7 Conjugate, PCV7 (Prevnar7) 2006-06-12 00:00:00 Completed [facility] HIB 4 Dose Schedule 2006-06-12 00:00:00 Completed [facility] Influenza Virus Vaccine 2006-06-12 00:00:00 Completed [facility] DTaP, Unspecified Formulation 2006-06-12 00:00:00 Completed [facility] Flu Trivalent 2006-06-12 00:00:00 Completed [facility] Hib-HbOC 2006-06-12 00:00:00 Completed [facility] DTAP 2006-06-12 00:00:00 Completed [facility] HEPATITIS A 2006-06-12 00:00:00 Completed [facility] Pneumococcal 7 Conjugate, PCV7 (Prevnar7) 2006-06-12 00:00:00 Completed [facility] HIB 4 Dose Schedule 2006-06-12 00:00:00 Completed [facility] Influenza Virus Vaccine 2006-06-12 00:00:00 Completed [facility] DTaP, Unspecified Formulation 2006-06-12 00:00:00 Completed [facility] Flu Trivalent 2006-06-12 00:00:00 Completed [facility] Hib-HbOC 2006-06-12 00:00:00 Completed [facility] DTAP 2006-06-12 00:00:00 Completed [facility] DTAP 2006-06-12 00:00:00 Completed [facility] HEPATITIS A 2006-06-12 00:00:00 Completed [facility] Pneumococcal 7 Conjugate, PCV7 (Prevnar7) 2006-06-12 00:00:00 Completed [facility] HEPATITIS A 2006-06-12 00:00:00 Completed [facility] HIB 4 Dose Schedule 2006-06-12 00:00:00 Completed [facility] Influenza Virus Vaccine 2006-06-12 00:00:00 Completed [facility] DTaP, Unspecified Formulation 2006-06-12 00:00:00 Completed [facility] Flu Trivalent 2006-06-12 00:00:00 Completed [facility] Hib-HbOC 2006-06-12 00:00:00 Completed [facility] Pneumococcal 7 Conjugate, PCV7 (Prevnar7) 2006-06-12 00:00:00 Completed [facility] DTAP 2006-06-12 00:00:00 Completed [facility] HEPATITIS A 2006-06-12 00:00:00 Completed [facility] Pneumococcal 7 Conjugate, PCV7 (Prevnar7) 2006-06-12 00:00:00 Completed [facility] HIB 4 Dose Schedule 2006-06-12 00:00:00 Completed [facility] Influenza Virus Vaccine 2006-06-12 00:00:00 Completed [facility] DTaP, Unspecified Formulation 2006-06-12 00:00:00 Completed [facility] Flu Trivalent 2006-06-12 00:00:00 Completed [facility] Hib-HbOC 2006-06-12 00:00:00 Completed [facility] Pneumococcal 7 Conjugate, PCV7 (Prevnar7) 2006-06-12 00:00:00 Completed [facility] DTAP 2006-06-12 00:00:00 Completed [facility] HEPATITIS A 2006-06-12 00:00:00 Completed [facility] Pneumococcal 7 Conjugate, PCV7 (Prevnar7) 2006-06-12 00:00:00 Completed [facility] HIB 4 Dose Schedule 2006-06-12 00:00:00 Completed [facility] Influenza Virus Vaccine 2006-06-12 00:00:00 Completed [facility] DTaP, Unspecified Formulation 2006-06-12 00:00:00 Completed [facility] Flu Trivalent 2006-06-12 00:00:00 Completed [facility] Hib-HbOC 2006-06-12 00:00:00 Completed [facility] HIB 4 Dose Schedule 2006-06-12 00:00:00 Completed [facility] DTAP 2006-06-12 00:00:00 Completed [facility] HEPATITIS A 2006-06-12 00:00:00 Completed [facility] Pneumococcal 7 Conjugate, PCV7 (Prevnar7) 2006-06-12 00:00:00 Completed [facility] Influenza Virus Vaccine 2006-06-12 00:00:00 Completed [facility] HIB 4 Dose Schedule 2006-06-12 00:00:00 Completed [facility] Influenza Virus Vaccine 2006-06-12 00:00:00 Completed [facility] DTaP, Unspecified Formulation 2006-06-12 00:00:00 Completed [facility] Flu Trivalent 2006-06-12 00:00:00 Completed [facility] Hib-HbOC 2006-06-12 00:00:00 Completed [facility] DTAP 2006-06-12 00:00:00 Completed [facility] HEPATITIS A 2006-06-12 00:00:00 Completed [facility] Pneumococcal 7 Conjugate, PCV7 (Prevnar7) 2006-06-12 00:00:00 Completed [facility] HIB 4 Dose Schedule 2006-06-12 00:00:00 Completed [facility] Influenza Virus Vaccine 2006-06-12 00:00:00 Completed [facility] DTaP, Unspecified Formulation 2006-06-12 00:00:00 Completed [facility] Flu Trivalent 2006-06-12 00:00:00 Completed [facility] Hib-HbOC 2006-06-12 00:00:00 Completed [facility] DTAP 2006-06-12 00:00:00 Completed [facility] HEPATITIS A 2006-06-12 00:00:00 Completed [facility] Pneumococcal 7 Conjugate, PCV7 (Prevnar7) 2006-06-12 00:00:00 Completed [facility] HIB 4 Dose Schedule 2006-06-12 00:00:00 Completed [facility] Influenza Virus Vaccine 2006-06-12 00:00:00 Completed [facility] DTaP, Unspecified Formulation 2006-06-12 00:00:00 Completed [facility] Flu Trivalent 2006-06-12 00:00:00 Completed [facility] Hib-HbOC 2006-06-12 00:00:00 Completed [facility] DTAP 2006-06-12 00:00:00 Completed [facility] HEPATITIS A 2006-06-12 00:00:00 Completed [facility] Pneumococcal 7 Conjugate, PCV7 (Prevnar7) 2006-06-12 00:00:00 Completed [facility] HIB 4 Dose Schedule 2006-06-12 00:00:00 Completed [facility] Influenza Virus Vaccine 2006-06-12 00:00:00 Completed [facility] DTaP, Unspecified Formulation 2006-06-12 00:00:00 Completed [facility] Flu Trivalent 2006-06-12 00:00:00 Completed [facility] Hib-HbOC 2006-06-12 00:00:00 Completed [facility] DTAP 2006-06-12 00:00:00 Completed [facility] HEPATITIS A 2006-06-12 00:00:00 Completed [facility] Pneumococcal 7 Conjugate, PCV7 (Prevnar7) 2006-06-12 00:00:00 Completed [facility] HIB 4 Dose Schedule 2006-06-12 00:00:00 Completed [facility] Influenza Virus Vaccine 2006-06-12 00:00:00 Completed [facility] DTaP, Unspecified Formulation 2006-06-12 00:00:00 Completed [facility] Flu Trivalent 2006-06-12 00:00:00 Completed [facility] Hib-HbOC 2006-06-12 00:00:00 Completed [facility] DTAP 2006-06-12 00:00:00 Completed [facility] HEPATITIS A 2006-06-12 00:00:00 Completed [facility] Pneumococcal 7 Conjugate, PCV7 (Prevnar7) 2006-06-12 00:00:00 Completed [facility] HIB 4 Dose Schedule 2006-06-12 00:00:00 Completed [facility] Influenza Virus Vaccine 2006-06-12 00:00:00 Completed [facility] DTaP, Unspecified Formulation 2006-06-12 00:00:00 Completed [facility] Flu Trivalent 2006-06-12 00:00:00 Completed [facility] Hib-HbOC 2006-06-12 00:00:00 Completed [facility] DTAP 2006-06-12 00:00:00 Completed [facility] HEPATITIS A 2006-06-12 00:00:00 Completed [facility] Pneumococcal 7 Conjugate, PCV7 (Prevnar7) 2006-06-12 00:00:00 Completed [facility] HIB 4 Dose Schedule 2006-06-12 00:00:00 Completed [facility] Influenza Virus Vaccine 2006-06-12 00:00:00 Completed [facility] DTaP, Unspecified Formulation 2006-06-12 00:00:00 Completed [facility] Flu Trivalent 2006-06-12 00:00:00 Completed [facility] Hib-HbOC 2006-06-12 00:00:00 Completed [facility] DTAP 2006-06-12 00:00:00 Completed [facility] HEPATITIS A 2006-06-12 00:00:00 Completed [facility] Pneumococcal 7 Conjugate, PCV7 (Prevnar7) 2006-06-12 00:00:00 Completed [facility] HIB 4 Dose Schedule 2006-06-12 00:00:00 Completed [facility] Influenza Virus Vaccine 2006-06-12 00:00:00 Completed [facility] DTaP, Unspecified Formulation 2006-06-12 00:00:00 Completed [facility] Flu Trivalent 2006-06-12 00:00:00 Completed [facility] Hib-HbOC 2006-06-12 00:00:00 Completed [facility] DTAP 2006-06-12 00:00:00 Completed [facility] DTAP 2006-06-12 00:00:00 Completed [facility] HEPATITIS A 2006-06-12 00:00:00 Completed [facility] Pneumococcal 7 Conjugate, PCV7 (Prevnar7) 2006-06-12 00:00:00 Completed [facility] HEPATITIS A 2006-06-12 00:00:00 Completed [facility] HIB 4 Dose Schedule 2006-06-12 00:00:00 Completed [facility] Influenza Virus Vaccine 2006-06-12 00:00:00 Completed [facility] DTaP, Unspecified Formulation 2006-06-12 00:00:00 Completed [facility] Flu Trivalent 2006-06-12 00:00:00 Completed [facility] Hib-HbOC 2006-06-12 00:00:00 Completed [facility] DTAP 2006-06-12 00:00:00 Completed [facility] HEPATITIS A 2006-06-12 00:00:00 Completed [facility] Pneumococcal 7 Conjugate, PCV7 (Prevnar7) 2006-06-12 00:00:00 Completed [facility] Pneumococcal 7 Conjugate, PCV7 (Prevnar7) 2006-06-12 00:00:00 Completed [facility] HIB 4 Dose Schedule 2006-06-12 00:00:00 Completed [facility] Influenza Virus Vaccine 2006-06-12 00:00:00 Completed [facility] DTaP, Unspecified Formulation 2006-06-12 00:00:00 Completed [facility] Flu Trivalent 2006-06-12 00:00:00 Completed [facility] Hib-HbOC 2006-06-12 00:00:00 Completed [facility] HIB 4 Dose Schedule 2006-06-12 00:00:00 Completed [facility] Influenza Virus Vaccine 2006-06-12 00:00:00 Completed [facility] DTAP 2006-06-12 00:00:00 Completed [facility] HEPATITIS A 2006-06-12 00:00:00 Completed [facility] Pneumococcal 7 Conjugate, PCV7 (Prevnar7) 2006-06-12 00:00:00 Completed [facility] HIB 4 Dose Schedule 2006-06-12 00:00:00 Completed [facility] Influenza Virus Vaccine 2006-06-12 00:00:00 Completed [facility] DTaP, Unspecified Formulation 2006-06-12 00:00:00 Completed [facility] Flu Trivalent 2006-06-12 00:00:00 Completed [facility] Hib-HbOC 2006-06-12 00:00:00 Completed [facility] DTAP 2006-06-12 00:00:00 Completed [facility] HEPATITIS A 2006-06-12 00:00:00 Completed [facility] Pneumococcal 7 Conjugate, PCV7 (Prevnar7) 2006-06-12 00:00:00 Completed [facility] HIB 4 Dose Schedule 2006-06-12 00:00:00 Completed [facility] Influenza Virus Vaccine 2006-06-12 00:00:00 Completed [facility] DTaP, Unspecified Formulation 2006-06-12 00:00:00 Completed [facility] Flu Trivalent 2006-06-12 00:00:00 Completed [facility] Hib-HbOC 2006-06-12 00:00:00 Completed [facility] DTAP 2006-06-12 00:00:00 Completed [facility] HEPATITIS A 2006-06-12 00:00:00 Completed [facility] Pneumococcal 7 Conjugate, PCV7 (Prevnar7) 2006-06-12 00:00:00 Completed [facility] HIB 4 Dose Schedule 2006-06-12 00:00:00 Completed [facility] Influenza Virus Vaccine 2006-06-12 00:00:00 Completed [facility] DTaP, Unspecified Formulation 2006-06-12 00:00:00 Completed [facility] Flu Trivalent 2006-06-12 00:00:00 Completed [facility] Hib-HbOC 2006-06-12 00:00:00 Completed [facility] DTAP 2006-06-12 00:00:00 Completed [facility] HEPATITIS A 2006-06-12 00:00:00 Completed [facility] Pneumococcal 7 Conjugate, PCV7 (Prevnar7) 2006-06-12 00:00:00 Completed [facility] HIB 4 Dose Schedule 2006-06-12 00:00:00 Completed [facility] Influenza Virus Vaccine 2006-06-12 00:00:00 Completed [facility] DTaP, Unspecified Formulation 2006-06-12 00:00:00 Completed [facility] Flu Trivalent 2006-06-12 00:00:00 Completed [facility] Hib-HbOC 2006-06-12 00:00:00 Completed [facility] DTAP 2006-06-12 00:00:00 Completed [facility] HEPATITIS A 2006-06-12 00:00:00 Completed [facility] Pneumococcal 7 Conjugate, PCV7 (Prevnar7) 2006-06-12 00:00:00 Completed [facility] HIB 4 Dose Schedule 2006-06-12 00:00:00 Completed [facility] Influenza Virus Vaccine 2006-06-12 00:00:00 Completed [facility] DTaP, Unspecified Formulation 2006-06-12 00:00:00 Completed [facility] Flu Trivalent 2006-06-12 00:00:00 Completed [facility] Hib-HbOC 2006-06-12 00:00:00 Completed [facility] HIB 4 Dose Schedule 2006-06-12 00:00:00 Completed [facility] DTAP 2006-06-12 00:00:00 Completed [facility] HEPATITIS A 2006-06-12 00:00:00 Completed [facility] Pneumococcal 7 Conjugate, PCV7 (Prevnar7) 2006-06-12 00:00:00 Completed [facility] HIB 4 Dose Schedule 2006-06-12 00:00:00 Completed [facility] Influenza Virus Vaccine 2006-06-12 00:00:00 Completed [facility] Influenza Virus Vaccine 2006-06-12 00:00:00 Completed [facility] DTaP, Unspecified Formulation 2006-06-12 00:00:00 Completed [facility] Flu Trivalent 2006-06-12 00:00:00 Completed [facility] Hib-HbOC 2006-06-12 00:00:00 Completed [facility] DTAP 2006-06-12 00:00:00 Completed [facility] HEPATITIS A 2006-06-12 00:00:00 Completed [facility] Pneumococcal 7 Conjugate, PCV7 (Prevnar7) 2006-06-12 00:00:00 Completed [facility] HIB 4 Dose Schedule 2006-06-12 00:00:00 Completed [facility] Influenza Virus Vaccine 2006-06-12 00:00:00 Completed [facility] DTaP, Unspecified Formulation 2006-06-12 00:00:00 Completed [facility] Flu Trivalent 2006-06-12 00:00:00 Completed [facility] Hib-HbOC 2006-06-12 00:00:00 Completed [facility] DTAP 2006-06-12 00:00:00 Completed [facility] HEPATITIS A 2006-06-12 00:00:00 Completed [facility] Pneumococcal 7 Conjugate, PCV7 (Prevnar7) 2006-06-12 00:00:00 Completed [facility] HIB 4 Dose Schedule 2006-06-12 00:00:00 Completed [facility] Influenza Virus Vaccine 2006-06-12 00:00:00 Completed [facility] DTaP, Unspecified Formulation 2006-06-12 00:00:00 Completed [facility] Flu Trivalent 2006-06-12 00:00:00 Completed [facility] Hib-HbOC 2006-06-12 00:00:00 Completed [facility] DTAP 2006-06-12 00:00:00 Completed [facility] HEPATITIS A 2006-06-12 00:00:00 Completed [facility] Pneumococcal 7 Conjugate, PCV7 (Prevnar7) 2006-06-12 00:00:00 Completed [facility] HIB 4 Dose Schedule 2006-06-12 00:00:00 Completed [facility] Influenza Virus Vaccine 2006-06-12 00:00:00 Completed [facility] DTaP, Unspecified Formulation 2006-06-12 00:00:00 Completed [facility] Flu Trivalent 2006-06-12 00:00:00 Completed [facility] Hib-HbOC 2006-06-12 00:00:00 Completed [facility] DTAP 2006-06-12 00:00:00 Completed [facility] HEPATITIS A 2006-06-12 00:00:00 Completed [facility] Pneumococcal 7 Conjugate, PCV7 (Prevnar7) 2006-06-12 00:00:00 Completed [facility] HIB 4 Dose Schedule 2006-06-12 00:00:00 Completed [facility] DTAP 2006-06-12 00:00:00 Completed [facility] Influenza Virus Vaccine 2006-06-12 00:00:00 Completed [facility] DTaP, Unspecified Formulation 2006-06-12 00:00:00 Completed [facility] Flu Trivalent 2006-06-12 00:00:00 Completed [facility] Hib-HbOC 2006-06-12 00:00:00 Completed [facility] HEPATITIS A 2006-06-12 00:00:00 Completed [facility] Pneumococcal 7 Conjugate, PCV7 (Prevnar7) 2006-06-12 00:00:00 Completed [facility] DTAP 2006-06-12 00:00:00 Completed [facility] HEPATITIS A 2006-06-12 00:00:00 Completed [facility] Pneumococcal 7 Conjugate, PCV7 (Prevnar7) 2006-06-12 00:00:00 Completed [facility] HIB 4 Dose Schedule 2006-06-12 00:00:00 Completed [facility] Influenza Virus Vaccine 2006-06-12 00:00:00 Completed [facility] DTaP, Unspecified Formulation 2006-06-12 00:00:00 Completed [facility] Flu Trivalent 2006-06-12 00:00:00 Completed [facility] Hib-HbOC 2006-06-12 00:00:00 Completed [facility] DTAP 2006-06-12 00:00:00 Completed [facility] HEPATITIS A 2006-06-12 00:00:00 Completed [facility] Pneumococcal 7 Conjugate, PCV7 (Prevnar7) 2006-06-12 00:00:00 Completed [facility] HIB 4 Dose Schedule 2006-06-12 00:00:00 Completed [facility] Influenza Virus Vaccine 2006-06-12 00:00:00 Completed [facility] DTaP, Unspecified Formulation 2006-06-12 00:00:00 Completed [facility] Flu Trivalent 2006-06-12 00:00:00 Completed [facility] Hib-HbOC 2006-06-12 00:00:00 Completed [facility] HIB 4 Dose Schedule 2006-06-12 00:00:00 Completed [facility] DTAP 2006-06-12 00:00:00 Completed [facility] HEPATITIS A 2006-06-12 00:00:00 Completed [facility] Pneumococcal 7 Conjugate, PCV7 (Prevnar7) 2006-06-12 00:00:00 Completed [facility] Influenza Virus Vaccine 2006-06-12 00:00:00 Completed [facility] HIB 4 Dose Schedule 2006-06-12 00:00:00 Completed [facility] Influenza Virus Vaccine 2006-06-12 00:00:00 Completed [facility] DTaP, Unspecified Formulation 2006-06-12 00:00:00 Completed [facility] Flu Trivalent 2006-06-12 00:00:00 Completed [facility] Hib-HbOC 2006-06-12 00:00:00 Completed [facility] DTAP 2006-06-12 00:00:00 Completed [facility] HEPATITIS A 2006-06-12 00:00:00 Completed [facility] Pneumococcal 7 Conjugate, PCV7 (Prevnar7) 2006-06-12 00:00:00 Completed [facility] HIB 4 Dose Schedule 2006-06-12 00:00:00 Completed [facility] Influenza Virus Vaccine 2006-06-12 00:00:00 Completed [facility] DTaP, Unspecified Formulation 2006-06-12 00:00:00 Completed [facility] Flu Trivalent 2006-06-12 00:00:00 Completed [facility] Hib-HbOC 2006-06-12 00:00:00 Completed [facility] DTAP 2006-06-12 00:00:00 Completed [facility] HEPATITIS A 2006-06-12 00:00:00 Completed [facility] Pneumococcal 7 Conjugate, PCV7 (Prevnar7) 2006-06-12 00:00:00 Completed [facility] HIB 4 Dose Schedule 2006-06-12 00:00:00 Completed [facility] Influenza Virus Vaccine 2006-06-12 00:00:00 Completed [facility] DTaP, Unspecified Formulation 2006-06-12 00:00:00 Completed [facility] Flu Trivalent 2006-06-12 00:00:00 Completed [facility] Hib-HbOC 2006-06-12 00:00:00 Completed [facility] DTAP 2006-06-12 00:00:00 Completed [facility] HEPATITIS A 2006-06-12 00:00:00 Completed [facility] Pneumococcal 7 Conjugate, PCV7 (Prevnar7) 2006-06-12 00:00:00 Completed [facility] HIB 4 Dose Schedule 2006-06-12 00:00:00 Completed [facility] Influenza Virus Vaccine 2006-06-12 00:00:00 Completed [facility] DTaP, Unspecified Formulation 2006-06-12 00:00:00 Completed [facility] Flu Trivalent 2006-06-12 00:00:00 Completed [facility] Hib-HbOC 2006-06-12 00:00:00 Completed [facility] Pneumococcal 7 Conjugate, PCV7 (Prevnar7) 2005-02-22 00:00:00 Completed [facility] Pneumococcal 7 Conjugate, PCV7 (Prevnar7) 2005-02-22 00:00:00 Completed [facility] Pneumococcal 7 Conjugate, PCV7 (Prevnar7) 2005-02-22 00:00:00 Completed [facility] Pneumococcal 7 Conjugate, PCV7 (Prevnar7) 2005-02-22 00:00:00 Completed [facility] Pneumococcal 7 Conjugate, PCV7 (Prevnar7) 2005-02-22 00:00:00 Completed [facility] Pneumococcal 7 Conjugate, PCV7 (Prevnar7) 2005-02-22 00:00:00 Completed [facility] Pneumococcal 7 Conjugate, PCV7 (Prevnar7) 2005-02-22 00:00:00 Completed [facility] Pneumococcal 7 Conjugate, PCV7 (Prevnar7) 2005-02-22 00:00:00 Completed [facility] Pneumococcal 7 Conjugate, PCV7 (Prevnar7) 2005-02-22 00:00:00 Completed [facility] Pneumococcal 7 Conjugate, PCV7 (Prevnar7) 2005-02-22 00:00:00 Completed [facility] Pneumococcal 7 Conjugate, PCV7 (Prevnar7) 2005-02-22 00:00:00 Completed [facility] Pneumococcal 7 Conjugate, PCV7 (Prevnar7) 2005-02-22 00:00:00 Completed [facility] Pneumococcal 7 Conjugate, PCV7 (Prevnar7) 2005-02-22 00:00:00 Completed [facility] Pneumococcal 7 Conjugate, PCV7 (Prevnar7) 2005-02-22 00:00:00 Completed [facility] Pneumococcal 7 Conjugate, PCV7 (Prevnar7) 2005-02-22 00:00:00 Completed [facility] Pneumococcal 7 Conjugate, PCV7 (Prevnar7) 2005-02-22 00:00:00 Completed [facility] Pneumococcal 7 Conjugate, PCV7 (Prevnar7) 2005-02-22 00:00:00 Completed [facility] Pneumococcal 7 Conjugate, PCV7 (Prevnar7) 2005-02-22 00:00:00 Completed [facility] Pneumococcal 7 Conjugate, PCV7 (Prevnar7) 2005-02-22 00:00:00 Completed [facility] Pneumococcal 7 Conjugate, PCV7 (Prevnar7) 2005-02-22 00:00:00 Completed [facility] Pneumococcal 7 Conjugate, PCV7 (Prevnar7) 2005-02-22 00:00:00 Completed [facility] Pneumococcal 7 Conjugate, PCV7 (Prevnar7) 2005-02-22 00:00:00 Completed [facility] Pneumococcal 7 Conjugate, PCV7 (Prevnar7) 2005-02-22 00:00:00 Completed [facility] Pneumococcal 7 Conjugate, PCV7 (Prevnar7) 2005-02-22 00:00:00 Completed [facility] Pneumococcal 7 Conjugate, PCV7 (Prevnar7) 2005-02-22 00:00:00 Completed [facility] Pneumococcal 7 Conjugate, PCV7 (Prevnar7) 2005-02-22 00:00:00 Completed [facility] Pneumococcal 7 Conjugate, PCV7 (Prevnar7) 2005-02-22 00:00:00 Completed [facility] Pneumococcal 7 Conjugate, PCV7 (Prevnar7) 2005-02-22 00:00:00 Completed [facility] Pneumococcal 7 Conjugate, PCV7 (Prevnar7) 2005-02-22 00:00:00 Completed [facility] Pneumococcal 7 Conjugate, PCV7 (Prevnar7) 2005-02-22 00:00:00 Completed [facility] Pneumococcal 7 Conjugate, PCV7 (Prevnar7) 2005-02-22 00:00:00 Completed [facility] Pneumococcal 7 Conjugate, PCV7 (Prevnar7) 2005-02-22 00:00:00 Completed [facility] Pneumococcal 7 Conjugate, PCV7 (Prevnar7) 2005-02-22 00:00:00 Completed [facility] Pneumococcal 7 Conjugate, PCV7 (Prevnar7) 2005-02-22 00:00:00 Completed [facility] Pneumococcal 7 Conjugate, PCV7 (Prevnar7) 2005-02-22 00:00:00 Completed [facility] Pneumococcal 7 Conjugate, PCV7 (Prevnar7) 2005-02-22 00:00:00 Completed [facility] Pneumococcal 7 Conjugate, PCV7 (Prevnar7) 2005-02-22 00:00:00 Completed [facility] Pneumococcal 7 Conjugate, PCV7 (Prevnar7) 2005-02-22 00:00:00 Completed [facility] Pneumococcal 7 Conjugate, PCV7 (Prevnar7) 2005-02-22 00:00:00 Completed [facility] Pneumococcal 7 Conjugate, PCV7 (Prevnar7) 2005-02-22 00:00:00 Completed [facility] Pneumococcal 7 Conjugate, PCV7 (Prevnar7) 2005-02-22 00:00:00 Completed [facility] Pneumococcal 7 Conjugate, PCV7 (Prevnar7) 2005-02-22 00:00:00 Completed [facility] Pneumococcal 7 Conjugate, PCV7 (Prevnar7) 2005-02-22 00:00:00 Completed [facility] Pneumococcal 7 Conjugate, PCV7 (Prevnar7) 2005-02-22 00:00:00 Completed [facility] Pneumococcal 7 Conjugate, PCV7 (Prevnar7) 2005-02-22 00:00:00 Completed [facility] Pneumococcal 7 Conjugate, PCV7 (Prevnar7) 2005-02-22 00:00:00 Completed [facility] Pneumococcal 7 Conjugate, PCV7 (Prevnar7) 2005-02-22 00:00:00 Completed [facility] Pneumococcal 7 Conjugate, PCV7 (Prevnar7) 2005-02-22 00:00:00 Completed [facility] Pneumococcal 7 Conjugate, PCV7 (Prevnar7) 2005-02-22 00:00:00 Completed [facility] Pneumococcal 7 Conjugate, PCV7 (Prevnar7) 2005-02-22 00:00:00 Completed [facility] Pneumococcal 7 Conjugate, PCV7 (Prevnar7) 2005-02-22 00:00:00 Completed [facility] Pneumococcal 7 Conjugate, PCV7 (Prevnar7) 2005-02-22 00:00:00 Completed [facility] Pneumococcal 7 Conjugate, PCV7 (Prevnar7) 2005-02-22 00:00:00 Completed [facility] Pneumococcal 7 Conjugate, PCV7 (Prevnar7) 2005-02-22 00:00:00 Completed [facility] Pneumococcal 7 Conjugate, PCV7 (Prevnar7) 2005-02-22 00:00:00 Completed [facility] Pneumococcal 7 Conjugate, PCV7 (Prevnar7) 2005-02-22 00:00:00 Completed [facility] Pneumococcal 7 Conjugate, PCV7 (Prevnar7) 2005-02-22 00:00:00 Completed [facility] Pneumococcal 7 Conjugate, PCV7 (Prevnar7) 2005-02-22 00:00:00 Completed [facility] Pneumococcal 7 Conjugate, PCV7 (Prevnar7) 2005-02-22 00:00:00 Completed [facility] Pneumococcal 7 Conjugate, PCV7 (Prevnar7) 2005-02-22 00:00:00 Completed [facility] Pneumococcal 7 Conjugate, PCV7 (Prevnar7) 2005-02-22 00:00:00 Completed [facility] Pneumococcal 7 Conjugate, PCV7 (Prevnar7) 2005-02-22 00:00:00 Completed [facility] Pneumococcal 7 Conjugate, PCV7 (Prevnar7) 2005-02-22 00:00:00 Completed [facility] Pneumococcal 7 Conjugate, PCV7 (Prevnar7) 2005-02-22 00:00:00 Completed [facility] Pneumococcal 7 Conjugate, PCV7 (Prevnar7) 2005-02-22 00:00:00 Completed [facility] Pneumococcal 7 Conjugate, PCV7 (Prevnar7) 2005-02-22 00:00:00 Completed [facility] Pneumococcal 7 Conjugate, PCV7 (Prevnar7) 2005-02-22 00:00:00 Completed [facility] Pneumococcal 7 Conjugate, PCV7 (Prevnar7) 2005-02-22 00:00:00 Completed [facility] Pneumococcal 7 Conjugate, PCV7 (Prevnar7) 2005-02-22 00:00:00 Completed [facility] MMR 2004-12-23 00:00:00 Completed [facility] Pneumococcal 7 Conjugate, PCV7 (Prevnar7) 2004-12-23 00:00:00 Completed [facility] Varicella (varivax)(chicken pox) 2004-12-23 00:00:00 Completed [facility] HIB 4 Dose Schedule 2004-12-23 00:00:00 Completed [facility] MMR 2004-12-23 00:00:00 Completed [facility] Pneumococcal 7 Conjugate, PCV7 (Prevnar7) 2004-12-23 00:00:00 Completed [facility] Varicella (varivax)(chicken pox) 2004-12-23 00:00:00 Completed [facility] HIB 4 Dose Schedule 2004-12-23 00:00:00 Completed [facility] MMR 2004-12-23 00:00:00 Completed [facility] Pneumococcal 7 Conjugate, PCV7 (Prevnar7) 2004-12-23 00:00:00 Completed [facility] Varicella (varivax)(chicken pox) 2004-12-23 00:00:00 Completed [facility] HIB 4 Dose Schedule 2004-12-23 00:00:00 Completed [facility] HIB 4 Dose Schedule 2004-12-23 00:00:00 Completed [facility] MMR 2004-12-23 00:00:00 Completed [facility] Pneumococcal 7 Conjugate, PCV7 (Prevnar7) 2004-12-23 00:00:00 Completed [facility] Varicella (varivax)(chicken pox) 2004-12-23 00:00:00 Completed [facility] MMR 2004-12-23 00:00:00 Completed [facility] HIB 4 Dose Schedule 2004-12-23 00:00:00 Completed [facility] Pneumococcal 7 Conjugate, PCV7 (Prevnar7) 2004-12-23 00:00:00 Completed [facility] MMR 2004-12-23 00:00:00 Completed [facility] Pneumococcal 7 Conjugate, PCV7 (Prevnar7) 2004-12-23 00:00:00 Completed [facility] Varicella (varivax)(chicken pox) 2004-12-23 00:00:00 Completed [facility] Varicella (varivax)(chicken pox) 2004-12-23 00:00:00 Completed [facility] HIB 4 Dose Schedule 2004-12-23 00:00:00 Completed [facility] MMR 2004-12-23 00:00:00 Completed [facility] Pneumococcal 7 Conjugate, PCV7 (Prevnar7) 2004-12-23 00:00:00 Completed [facility] Varicella (varivax)(chicken pox) 2004-12-23 00:00:00 Completed [facility] HIB 4 Dose Schedule 2004-12-23 00:00:00 Completed [facility] MMR 2004-12-23 00:00:00 Completed [facility] Pneumococcal 7 Conjugate, PCV7 (Prevnar7) 2004-12-23 00:00:00 Completed [facility] Varicella (varivax)(chicken pox) 2004-12-23 00:00:00 Completed [facility] HIB 4 Dose Schedule 2004-12-23 00:00:00 Completed [facility] MMR 2004-12-23 00:00:00 Completed [facility] Pneumococcal 7 Conjugate, PCV7 (Prevnar7) 2004-12-23 00:00:00 Completed [facility] Varicella (varivax)(chicken pox) 2004-12-23 00:00:00 Completed [facility] HIB 4 Dose Schedule 2004-12-23 00:00:00 Completed [facility] MMR 2004-12-23 00:00:00 Completed [facility] Pneumococcal 7 Conjugate, PCV7 (Prevnar7) 2004-12-23 00:00:00 Completed [facility] Varicella (varivax)(chicken pox) 2004-12-23 00:00:00 Completed [facility] HIB 4 Dose Schedule 2004-12-23 00:00:00 Completed [facility] MMR 2004-12-23 00:00:00 Completed [facility] Pneumococcal 7 Conjugate, PCV7 (Prevnar7) 2004-12-23 00:00:00 Completed [facility] Varicella (varivax)(chicken pox) 2004-12-23 00:00:00 Completed [facility] HIB 4 Dose Schedule 2004-12-23 00:00:00 Completed [facility] HIB 4 Dose Schedule 2004-12-23 00:00:00 Completed [facility] MMR 2004-12-23 00:00:00 Completed [facility] Pneumococcal 7 Conjugate, PCV7 (Prevnar7) 2004-12-23 00:00:00 Completed [facility] Varicella (varivax)(chicken pox) 2004-12-23 00:00:00 Completed [facility] HIB 4 Dose Schedule 2004-12-23 00:00:00 Completed [facility] MMR 2004-12-23 00:00:00 Completed [facility] Pneumococcal 7 Conjugate, PCV7 (Prevnar7) 2004-12-23 00:00:00 Completed [facility] MMR 2004-12-23 00:00:00 Completed [facility] Varicella (varivax)(chicken pox) 2004-12-23 00:00:00 Completed [facility] Pneumococcal 7 Conjugate, PCV7 (Prevnar7) 2004-12-23 00:00:00 Completed [facility] HIB 4 Dose Schedule 2004-12-23 00:00:00 Completed [facility] MMR 2004-12-23 00:00:00 Completed [facility] Pneumococcal 7 Conjugate, PCV7 (Prevnar7) 2004-12-23 00:00:00 Completed [facility] Varicella (varivax)(chicken pox) 2004-12-23 00:00:00 Completed [facility] Varicella (varivax)(chicken pox) 2004-12-23 00:00:00 Completed [facility] HIB 4 Dose Schedule 2004-12-23 00:00:00 Completed [facility] MMR 2004-12-23 00:00:00 Completed [facility] Pneumococcal 7 Conjugate, PCV7 (Prevnar7) 2004-12-23 00:00:00 Completed [facility] Varicella (varivax)(chicken pox) 2004-12-23 00:00:00 Completed [facility] HIB 4 Dose Schedule 2004-12-23 00:00:00 Completed [facility] MMR 2004-12-23 00:00:00 Completed [facility] Pneumococcal 7 Conjugate, PCV7 (Prevnar7) 2004-12-23 00:00:00 Completed [facility] Varicella (varivax)(chicken pox) 2004-12-23 00:00:00 Completed [facility] HIB 4 Dose Schedule 2004-12-23 00:00:00 Completed [facility] MMR 2004-12-23 00:00:00 Completed [facility] Pneumococcal 7 Conjugate, PCV7 (Prevnar7) 2004-12-23 00:00:00 Completed [facility] Varicella (varivax)(chicken pox) 2004-12-23 00:00:00 Completed [facility] HIB 4 Dose Schedule 2004-12-23 00:00:00 Completed [facility] MMR 2004-12-23 00:00:00 Completed [facility] Pneumococcal 7 Conjugate, PCV7 (Prevnar7) 2004-12-23 00:00:00 Completed [facility] Varicella (varivax)(chicken pox) 2004-12-23 00:00:00 Completed [facility] HIB 4 Dose Schedule 2004-12-23 00:00:00 Completed [facility] MMR 2004-12-23 00:00:00 Completed [facility] HIB 4 Dose Schedule 2004-12-23 00:00:00 Completed [facility] Pneumococcal 7 Conjugate, PCV7 (Prevnar7) 2004-12-23 00:00:00 Completed [facility] Varicella (varivax)(chicken pox) 2004-12-23 00:00:00 Completed [facility] HIB 4 Dose Schedule 2004-12-23 00:00:00 Completed [facility] MMR 2004-12-23 00:00:00 Completed [facility] Pneumococcal 7 Conjugate, PCV7 (Prevnar7) 2004-12-23 00:00:00 Completed [facility] Varicella (varivax)(chicken pox) 2004-12-23 00:00:00 Completed [facility] HIB 4 Dose Schedule 2004-12-23 00:00:00 Completed [facility] MMR 2004-12-23 00:00:00 Completed [facility] Pneumococcal 7 Conjugate, PCV7 (Prevnar7) 2004-12-23 00:00:00 Completed [facility] Varicella (varivax)(chicken pox) 2004-12-23 00:00:00 Completed [facility] HIB 4 Dose Schedule 2004-12-23 00:00:00 Completed [facility] MMR 2004-12-23 00:00:00 Completed [facility] Pneumococcal 7 Conjugate, PCV7 (Prevnar7) 2004-12-23 00:00:00 Completed [facility] Varicella (varivax)(chicken pox) 2004-12-23 00:00:00 Completed [facility] HIB 4 Dose Schedule 2004-12-23 00:00:00 Completed [facility] HIB 4 Dose Schedule 2004-12-23 00:00:00 Completed [facility] MMR 2004-12-23 00:00:00 Completed [facility] Pneumococcal 7 Conjugate, PCV7 (Prevnar7) 2004-12-23 00:00:00 Completed [facility] Varicella (varivax)(chicken pox) 2004-12-23 00:00:00 Completed [facility] MMR 2004-12-23 00:00:00 Completed [facility] HIB 4 Dose Schedule 2004-12-23 00:00:00 Completed [facility] MMR 2004-12-23 00:00:00 Completed [facility] Pneumococcal 7 Conjugate, PCV7 (Prevnar7) 2004-12-23 00:00:00 Completed [facility] Varicella (varivax)(chicken pox) 2004-12-23 00:00:00 Completed [facility] Pneumococcal 7 Conjugate, PCV7 (Prevnar7) 2004-12-23 00:00:00 Completed [facility] Varicella (varivax)(chicken pox) 2004-12-23 00:00:00 Completed [facility] HIB 4 Dose Schedule 2004-12-23 00:00:00 Completed [facility] MMR 2004-12-23 00:00:00 Completed [facility] Pneumococcal 7 Conjugate, PCV7 (Prevnar7) 2004-12-23 00:00:00 Completed [facility] Varicella (varivax)(chicken pox) 2004-12-23 00:00:00 Completed [facility] HIB 4 Dose Schedule 2004-12-23 00:00:00 Completed [facility] MMR 2004-12-23 00:00:00 Completed [facility] Pneumococcal 7 Conjugate, PCV7 (Prevnar7) 2004-12-23 00:00:00 Completed [facility] Varicella (varivax)(chicken pox) 2004-12-23 00:00:00 Completed [facility] HIB 4 Dose Schedule 2004-12-23 00:00:00 Completed [facility] MMR 2004-12-23 00:00:00 Completed [facility] Pneumococcal 7 Conjugate, PCV7 (Prevnar7) 2004-12-23 00:00:00 Completed [facility] Varicella (varivax)(chicken pox) 2004-12-23 00:00:00 Completed [facility] HIB 4 Dose Schedule 2004-12-23 00:00:00 Completed [facility] MMR 2004-12-23 00:00:00 Completed [facility] Pneumococcal 7 Conjugate, PCV7 (Prevnar7) 2004-12-23 00:00:00 Completed [facility] Varicella (varivax)(chicken pox) 2004-12-23 00:00:00 Completed [facility] HIB 4 Dose Schedule 2004-12-23 00:00:00 Completed [facility] MMR 2004-12-23 00:00:00 Completed [facility] Pneumococcal 7 Conjugate, PCV7 (Prevnar7) 2004-12-23 00:00:00 Completed [facility] Varicella (varivax)(chicken pox) 2004-12-23 00:00:00 Completed [facility] HIB 4 Dose Schedule 2004-12-23 00:00:00 Completed [facility] MMR 2004-12-23 00:00:00 Completed [facility] Pneumococcal 7 Conjugate, PCV7 (Prevnar7) 2004-12-23 00:00:00 Completed [facility] Varicella (varivax)(chicken pox) 2004-12-23 00:00:00 Completed [facility] MMR 2004-12-23 00:00:00 Completed [facility] HIB 4 Dose Schedule 2004-12-23 00:00:00 Completed [facility] 2004-12-23 00:00:00 Completed [facility] Pneumococcal 7 Conjugate, PCV7 (Prevnar7) 2004-12-23 00:00:00 Completed [facility] Varicella (varivax)(chicken pox) 2004-12-23 00:00:00 Completed [facility] HIB 4 Dose Schedule 2004-12-23 00:00:00 Completed [facility] MMR 2004-12-23 00:00:00 Completed [facility] Pneumococcal 7 Conjugate, PCV7 (Prevnar7) 2004-12-23 00:00:00 Completed [facility] Varicella (varivax)(chicken pox) 2004-12-23 00:00:00 Completed [facility] HIB 4 Dose Schedule 2004-12-23 00:00:00 Completed [facility] MMR 2004-12-23 00:00:00 Completed [facility] Pneumococcal 7 Conjugate, PCV7 (Prevnar7) 2004-12-23 00:00:00 Completed [facility] Varicella (varivax)(chicken pox) 2004-12-23 00:00:00 Completed [facility] HIB 4 Dose Schedule 2004-12-23 00:00:00 Completed [facility] MMR 2004-12-23 00:00:00 Completed [facility] Pneumococcal 7 Conjugate, PCV7 (Prevnar7) 2004-12-23 00:00:00 Completed [facility] Varicella (varivax)(chicken pox) 2004-12-23 00:00:00 Completed [facility] HIB 4 Dose Schedule 2004-12-23 00:00:00 Completed [facility] HIB 4 Dose Schedule 2004-12-23 00:00:00 Completed [facility] Pneumococcal 7 Conjugate, PCV7 (Prevnar7) 2004-12-23 00:00:00 Completed [facility] MMR 2004-12-23 00:00:00 Completed [facility] Pneumococcal 7 Conjugate, PCV7 (Prevnar7) 2004-12-23 00:00:00 Completed [facility] Varicella (varivax)(chicken pox) 2004-12-23 00:00:00 Completed [facility] MMR 2004-12-23 00:00:00 Completed [facility] Pneumococcal 7 Conjugate, PCV7 (Prevnar7) 2004-12-23 00:00:00 Completed [facility] HIB 4 Dose Schedule 2004-12-23 00:00:00 Completed [facility] MMR 2004-12-23 00:00:00 Completed [facility] Varicella (varivax)(chicken pox) 2004-12-23 00:00:00 Completed [facility] Pneumococcal 7 Conjugate, PCV7 (Prevnar7) 2004-12-23 00:00:00 Completed [facility] Varicella (varivax)(chicken pox) 2004-12-23 00:00:00 Completed [facility] HIB 4 Dose Schedule 2004-12-23 00:00:00 Completed [facility] MMR 2004-12-23 00:00:00 Completed [facility] Pneumococcal 7 Conjugate, PCV7 (Prevnar7) 2004-12-23 00:00:00 Completed [facility] Varicella (varivax)(chicken pox) 2004-12-23 00:00:00 Completed [facility] HIB 4 Dose Schedule 2004-12-23 00:00:00 Completed [facility] MMR 2004-12-23 00:00:00 Completed [facility] Pneumococcal 7 Conjugate, PCV7 (Prevnar7) 2004-12-23 00:00:00 Completed [facility] Varicella (varivax)(chicken pox) 2004-12-23 00:00:00 Completed [facility] Varicella (varivax)(chicken pox) 2004-12-23 00:00:00 Completed [facility] HIB 4 Dose Schedule 2004-12-23 00:00:00 Completed [facility] MMR 2004-12-23 00:00:00 Completed [facility] Pneumococcal 7 Conjugate, PCV7 (Prevnar7) 2004-12-23 00:00:00 Completed [facility] Varicella (varivax)(chicken pox) 2004-12-23 00:00:00 Completed [facility] HIB 4 Dose Schedule 2004-12-23 00:00:00 Completed [facility] MMR 2004-12-23 00:00:00 Completed [facility] Pneumococcal 7 Conjugate, PCV7 (Prevnar7) 2004-12-23 00:00:00 Completed [facility] Varicella (varivax)(chicken pox) 2004-12-23 00:00:00 Completed [facility] HIB 4 Dose Schedule 2004-12-23 00:00:00 Completed [facility] MMR 2004-12-23 00:00:00 Completed [facility] Pneumococcal 7 Conjugate, PCV7 (Prevnar7) 2004-12-23 00:00:00 Completed [facility] Varicella (varivax)(chicken pox) 2004-12-23 00:00:00 Completed [facility] HIB 4 Dose Schedule 2004-12-23 00:00:00 Completed [facility] MMR 2004-12-23 00:00:00 Completed [facility] Pneumococcal 7 Conjugate, PCV7 (Prevnar7) 2004-12-23 00:00:00 Completed [facility] Varicella (varivax)(chicken pox) 2004-12-23 00:00:00 Completed [facility] HIB 4 Dose Schedule 2004-12-23 00:00:00 Completed [facility] MMR 2004-12-23 00:00:00 Completed [facility] Pneumococcal 7 Conjugate, PCV7 (Prevnar7) 2004-12-23 00:00:00 Completed [facility] Varicella (varivax)(chicken pox) 2004-12-23 00:00:00 Completed [facility] HIB 4 Dose Schedule 2004-12-23 00:00:00 Completed [facility] MMR 2004-12-23 00:00:00 Completed [facility] Pneumococcal 7 Conjugate, PCV7 (Prevnar7) 2004-12-23 00:00:00 Completed [facility] Varicella (varivax)(chicken pox) 2004-12-23 00:00:00 Completed [facility] HIB 4 Dose Schedule 2004-12-23 00:00:00 Completed [facility] MMR 2004-12-23 00:00:00 Completed [facility] Pneumococcal 7 Conjugate, PCV7 (Prevnar7) 2004-12-23 00:00:00 Completed [facility] Varicella (varivax)(chicken pox) 2004-12-23 00:00:00 Completed [facility] HIB 4 Dose Schedule 2004-12-23 00:00:00 Completed [facility] HIB 4 Dose Schedule 2004-12-23 00:00:00 Completed [facility] MMR 2004-12-23 00:00:00 Completed [facility] Pneumococcal 7 Conjugate, PCV7 (Prevnar7) 2004-12-23 00:00:00 Completed [facility] Varicella (varivax)(chicken pox) 2004-12-23 00:00:00 Completed [facility] MMR 2004-12-23 00:00:00 Completed [facility] Pneumococcal 7 Conjugate, PCV7 (Prevnar7) 2004-12-23 00:00:00 Completed [facility] HIB 4 Dose Schedule 2004-12-23 00:00:00 Completed [facility] MMR 2004-12-23 00:00:00 Completed [facility] Pneumococcal 7 Conjugate, PCV7 (Prevnar7) 2004-12-23 00:00:00 Completed [facility] Varicella (varivax)(chicken pox) 2004-12-23 00:00:00 Completed [facility] Varicella (varivax)(chicken pox) 2004-12-23 00:00:00 Completed [facility] HIB 4 Dose Schedule 2004-12-23 00:00:00 Completed [facility] MMR 2004-12-23 00:00:00 Completed [facility] Pneumococcal 7 Conjugate, PCV7 (Prevnar7) 2004-12-23 00:00:00 Completed [facility] Varicella (varivax)(chicken pox) 2004-12-23 00:00:00 Completed [facility] HIB 4 Dose Schedule 2004-12-23 00:00:00 Completed [facility] MMR 2004-12-23 00:00:00 Completed [facility] Pneumococcal 7 Conjugate, PCV7 (Prevnar7) 2004-12-23 00:00:00 Completed [facility] Varicella (varivax)(chicken pox) 2004-12-23 00:00:00 Completed [facility] HIB 4 Dose Schedule 2004-12-23 00:00:00 Completed [facility] MMR 2004-12-23 00:00:00 Completed [facility] Pneumococcal 7 Conjugate, PCV7 (Prevnar7) 2004-12-23 00:00:00 Completed [facility] Varicella (varivax)(chicken pox) 2004-12-23 00:00:00 Completed [facility] HIB 4 Dose Schedule 2004-12-23 00:00:00 Completed [facility] MMR 2004-12-23 00:00:00 Completed [facility] Pneumococcal 7 Conjugate, PCV7 (Prevnar7) 2004-12-23 00:00:00 Completed [facility] Varicella (varivax)(chicken pox) 2004-12-23 00:00:00 Completed [facility] HIB 4 Dose Schedule 2004-12-23 00:00:00 Completed [facility] MMR 2004-12-23 00:00:00 Completed [facility] Pneumococcal 7 Conjugate, PCV7 (Prevnar7) 2004-12-23 00:00:00 Completed [facility] Varicella (varivax)(chicken pox) 2004-12-23 00:00:00 Completed [facility] HIB 4 Dose Schedule 2004-12-23 00:00:00 Completed [facility] MMR 2004-12-23 00:00:00 Completed [facility] Pneumococcal 7 Conjugate, PCV7 (Prevnar7) 2004-12-23 00:00:00 Completed [facility] Varicella (varivax)(chicken pox) 2004-12-23 00:00:00 Completed [facility] HIB 4 Dose Schedule 2004-12-23 00:00:00 Completed [facility] MMR 2004-12-23 00:00:00 Completed [facility] Pneumococcal 7 Conjugate, PCV7 (Prevnar7) 2004-12-23 00:00:00 Completed [facility] Varicella (varivax)(chicken pox) 2004-12-23 00:00:00 Completed [facility] HIB 4 Dose Schedule 2004-12-23 00:00:00 Completed [facility] MMR 2004-12-23 00:00:00 Completed [facility] Pneumococcal 7 Conjugate, PCV7 (Prevnar7) 2004-12-23 00:00:00 Completed [facility] Varicella (varivax)(chicken pox) 2004-12-23 00:00:00 Completed [facility] HIB 4 Dose Schedule 2004-12-23 00:00:00 Completed [facility] MMR 2004-12-23 00:00:00 Completed [facility] Pneumococcal 7 Conjugate, PCV7 (Prevnar7) 2004-12-23 00:00:00 Completed [facility] Varicella (varivax)(chicken pox) 2004-12-23 00:00:00 Completed [facility] HIB 4 Dose Schedule 2004-12-23 00:00:00 Completed [facility] HIB 4 Dose Schedule 2004-12-23 00:00:00 Completed [facility] MMR 2004-12-23 00:00:00 Completed [facility] Pneumococcal 7 Conjugate, PCV7 (Prevnar7) 2004-12-23 00:00:00 Completed [facility] Varicella (varivax)(chicken pox) 2004-12-23 00:00:00 Completed [facility] MMR 2004-12-23 00:00:00 Completed [facility] Pneumococcal 7 Conjugate, PCV7 (Prevnar7) 2004-12-23 00:00:00 Completed [facility] Varicella (varivax)(chicken pox) 2004-12-23 00:00:00 Completed [facility] HIB 4 Dose Schedule 2004-12-23 00:00:00 Completed [facility] MMR 2004-12-23 00:00:00 Completed [facility] Pneumococcal 7 Conjugate, PCV7 (Prevnar7) 2004-12-23 00:00:00 Completed [facility] Varicella (varivax)(chicken pox) 2004-12-23 00:00:00 Completed [facility] HIB 4 Dose Schedule 2004-12-23 00:00:00 Completed [facility] MMR 2004-12-23 00:00:00 Completed [facility] Pneumococcal 7 Conjugate, PCV7 (Prevnar7) 2004-12-23 00:00:00 Completed [facility] Varicella (varivax)(chicken pox) 2004-12-23 00:00:00 Completed [facility] HIB 4 Dose Schedule 2004-12-23 00:00:00 Completed [facility] MMR 2004-12-23 00:00:00 Completed [facility] Pneumococcal 7 Conjugate, PCV7 (Prevnar7) 2004-12-23 00:00:00 Completed [facility] Varicella (varivax)(chicken pox) 2004-12-23 00:00:00 Completed [facility] HIB 4 Dose Schedule 2004-12-23 00:00:00 Completed [facility] MMR 2004-12-23 00:00:00 Completed [facility] Pneumococcal 7 Conjugate, PCV7 (Prevnar7) 2004-12-23 00:00:00 Completed [facility] Varicella (varivax)(chicken pox) 2004-12-23 00:00:00 Completed [facility] HIB 4 Dose Schedule 2004-12-23 00:00:00 Completed [facility] MMR 2004-12-23 00:00:00 Completed [facility] Pneumococcal 7 Conjugate, PCV7 (Prevnar7) 2004-12-23 00:00:00 Completed [facility] Varicella (varivax)(chicken pox) 2004-12-23 00:00:00 Completed [facility] HIB 4 Dose Schedule 2004-12-23 00:00:00 Completed [facility] MMR 2004-12-23 00:00:00 Completed [facility] Pneumococcal 7 Conjugate, PCV7 (Prevnar7) 2004-12-23 00:00:00 Completed [facility] Varicella (varivax)(chicken pox) 2004-12-23 00:00:00 Completed [facility] HIB 4 Dose Schedule 2004-12-23 00:00:00 Completed [facility] HIB 4 Dose Schedule 2004-06-26 00:00:00 Completed [facility] Pediarix (dtap/hep B/ipv) 2004-06-26 00:00:00 Completed [facility] HIB 4 Dose Schedule 2004-06-26 00:00:00 Completed [facility] Pediarix (dtap/hep B/ipv) 2004-06-26 00:00:00 Completed [facility] HIB 4 Dose Schedule 2004-06-26 00:00:00 Completed [facility] Pediarix (dtap/hep B/ipv) 2004-06-26 00:00:00 Completed [facility] HIB 4 Dose Schedule 2004-06-26 00:00:00 Completed [facility] Pediarix (dtap/hep B/ipv) 2004-06-26 00:00:00 Completed [facility] HIB 4 Dose Schedule 2004-06-26 00:00:00 Completed [facility] Pediarix (dtap/hep B/ipv) 2004-06-26 00:00:00 Completed [facility] HIB 4 Dose Schedule 2004-06-26 00:00:00 Completed [facility] Pediarix (dtap/hep B/ipv) 2004-06-26 00:00:00 Completed [facility] HIB 4 Dose Schedule 2004-06-26 00:00:00 Completed [facility] Pediarix (dtap/hep B/ipv) 2004-06-26 00:00:00 Completed [facility] HIB 4 Dose Schedule 2004-06-26 00:00:00 Completed [facility] Pediarix (dtap/hep B/ipv) 2004-06-26 00:00:00 Completed [facility] HIB 4 Dose Schedule 2004-06-26 00:00:00 Completed [facility] Pediarix (dtap/hep B/ipv) 2004-06-26 00:00:00 Completed [facility] HIB 4 Dose Schedule 2004-06-26 00:00:00 Completed [facility] Pediarix (dtap/hep B/ipv) 2004-06-26 00:00:00 Completed [facility] HIB 4 Dose Schedule 2004-06-26 00:00:00 Completed [facility] HIB 4 Dose Schedule 2004-06-26 00:00:00 Completed [facility] Pediarix (dtap/hep B/ipv) 2004-06-26 00:00:00 Completed [facility] Pediarix (dtap/hep B/ipv) 2004-06-26 00:00:00 Completed [facility] HIB 4 Dose Schedule 2004-06-26 00:00:00 Completed [facility] Pediarix (dtap/hep B/ipv) 2004-06-26 00:00:00 Completed [facility] HIB 4 Dose Schedule 2004-06-26 00:00:00 Completed [facility] Pediarix (dtap/hep B/ipv) 2004-06-26 00:00:00 Completed [facility] HIB 4 Dose Schedule 2004-06-26 00:00:00 Completed [facility] Pediarix (dtap/hep B/ipv) 2004-06-26 00:00:00 Completed [facility] HIB 4 Dose Schedule 2004-06-26 00:00:00 Completed [facility] Pediarix (dtap/hep B/ipv) 2004-06-26 00:00:00 Completed [facility] HIB 4 Dose Schedule 2004-06-26 00:00:00 Completed [facility] Pediarix (dtap/hep B/ipv) 2004-06-26 00:00:00 Completed [facility] HIB 4 Dose Schedule 2004-06-26 00:00:00 Completed [facility] HIB 4 Dose Schedule 2004-06-26 00:00:00 Completed [facility] Pediarix (dtap/hep B/ipv) 2004-06-26 00:00:00 Completed [facility] HIB 4 Dose Schedule 2004-06-26 00:00:00 Completed [facility] Pediarix (dtap/hep B/ipv) 2004-06-26 00:00:00 Completed [facility] HIB 4 Dose Schedule 2004-06-26 00:00:00 Completed [facility] Pediarix (dtap/hep B/ipv) 2004-06-26 00:00:00 Completed [facility] HIB 4 Dose Schedule 2004-06-26 00:00:00 Completed [facility] Pediarix (dtap/hep B/ipv) 2004-06-26 00:00:00 Completed [facility] HIB 4 Dose Schedule 2004-06-26 00:00:00 Completed [facility] Pediarix (dtap/hep B/ipv) 2004-06-26 00:00:00 Completed [facility] HIB 4 Dose Schedule 2004-06-26 00:00:00 Completed [facility] HIB 4 Dose Schedule 2004-06-26 00:00:00 Completed [facility] Pediarix (dtap/hep B/ipv) 2004-06-26 00:00:00 Completed [facility] Pediarix (dtap/hep B/ipv) 2004-06-26 00:00:00 Completed [facility] HIB 4 Dose Schedule 2004-06-26 00:00:00 Completed [facility] Pediarix (dtap/hep B/ipv) 2004-06-26 00:00:00 Completed [facility] HIB 4 Dose Schedule 2004-06-26 00:00:00 Completed [facility] Pediarix (dtap/hep B/ipv) 2004-06-26 00:00:00 Completed [facility] Pediarix (dtap/hep B/ipv) 2004-06-26 00:00:00 Completed [facility] HIB 4 Dose Schedule 2004-06-26 00:00:00 Completed [facility] Pediarix (dtap/hep B/ipv) 2004-06-26 00:00:00 Completed [facility] HIB 4 Dose Schedule 2004-06-26 00:00:00 Completed [facility] Pediarix (dtap/hep B/ipv) 2004-06-26 00:00:00 Completed [facility] HIB 4 Dose Schedule 2004-06-26 00:00:00 Completed [facility] Pediarix (dtap/hep B/ipv) 2004-06-26 00:00:00 Completed [facility] HIB 4 Dose Schedule 2004-06-26 00:00:00 Completed [facility] Pediarix (dtap/hep B/ipv) 2004-06-26 00:00:00 Completed [facility] HIB 4 Dose Schedule 2004-06-26 00:00:00 Completed [facility] Pediarix (dtap/hep B/ipv) 2004-06-26 00:00:00 Completed [facility] HIB 4 Dose Schedule 2004-06-26 00:00:00 Completed [facility] Pediarix (dtap/hep B/ipv) 2004-06-26 00:00:00 Completed [facility] HIB 4 Dose Schedule 2004-06-26 00:00:00 Completed [facility] Pediarix (dtap/hep B/ipv) 2004-06-26 00:00:00 Completed [facility] HIB 4 Dose Schedule 2004-06-26 00:00:00 Completed [facility] Pediarix (dtap/hep B/ipv) 2004-06-26 00:00:00 Completed [facility] HIB 4 Dose Schedule 2004-06-26 00:00:00 Completed [facility] Pediarix (dtap/hep B/ipv) 2004-06-26 00:00:00 Completed [facility] HIB 4 Dose Schedule 2004-06-26 00:00:00 Completed [facility] Pediarix (dtap/hep B/ipv) 2004-06-26 00:00:00 Completed [facility] HIB 4 Dose Schedule 2004-06-26 00:00:00 Completed [facility] Pediarix (dtap/hep B/ipv) 2004-06-26 00:00:00 Completed [facility] HIB 4 Dose Schedule 2004-06-26 00:00:00 Completed [facility] Pediarix (dtap/hep B/ipv) 2004-06-26 00:00:00 Completed [facility] HIB 4 Dose Schedule 2004-06-26 00:00:00 Completed [facility] Pediarix (dtap/hep B/ipv) 2004-06-26 00:00:00 Completed [facility] HIB 4 Dose Schedule 2004-06-26 00:00:00 Completed [facility] Pediarix (dtap/hep B/ipv) 2004-06-26 00:00:00 Completed [facility] HIB 4 Dose Schedule 2004-06-26 00:00:00 Completed [facility] Pediarix (dtap/hep B/ipv) 2004-06-26 00:00:00 Completed [facility] HIB 4 Dose Schedule 2004-06-26 00:00:00 Completed [facility] Pediarix (dtap/hep B/ipv) 2004-06-26 00:00:00 Completed [facility] HIB 4 Dose Schedule 2004-06-26 00:00:00 Completed [facility] Pediarix (dtap/hep B/ipv) 2004-06-26 00:00:00 Completed [facility] HIB 4 Dose Schedule 2004-06-26 00:00:00 Completed [facility] Pediarix (dtap/hep B/ipv) 2004-06-26 00:00:00 Completed [facility] HIB 4 Dose Schedule 2004-06-26 00:00:00 Completed [facility] Pediarix (dtap/hep B/ipv) 2004-06-26 00:00:00 Completed [facility] HIB 4 Dose Schedule 2004-06-26 00:00:00 Completed [facility] Pediarix (dtap/hep B/ipv) 2004-06-26 00:00:00 Completed [facility] HIB 4 Dose Schedule 2004-06-26 00:00:00 Completed [facility] Pediarix (dtap/hep B/ipv) 2004-06-26 00:00:00 Completed [facility] HIB 4 Dose Schedule 2004-06-26 00:00:00 Completed [facility] Pediarix (dtap/hep B/ipv) 2004-06-26 00:00:00 Completed [facility] HIB 4 Dose Schedule 2004-06-26 00:00:00 Completed [facility] Pediarix (dtap/hep B/ipv) 2004-06-26 00:00:00 Completed [facility] HIB 4 Dose Schedule 2004-06-26 00:00:00 Completed [facility] Pediarix (dtap/hep B/ipv) 2004-06-26 00:00:00 Completed [facility] HIB 4 Dose Schedule 2004-06-26 00:00:00 Completed [facility] Pediarix (dtap/hep B/ipv) 2004-06-26 00:00:00 Completed [facility] HIB 4 Dose Schedule 2004-06-26 00:00:00 Completed [facility] Pediarix (dtap/hep B/ipv) 2004-06-26 00:00:00 Completed [facility] HIB 4 Dose Schedule 2004-06-26 00:00:00 Completed [facility] Pediarix (dtap/hep B/ipv) 2004-06-26 00:00:00 Completed [facility] HIB 4 Dose Schedule 2004-06-26 00:00:00 Completed [facility] Pediarix (dtap/hep B/ipv) 2004-06-26 00:00:00 Completed [facility] HIB 4 Dose Schedule 2004-06-26 00:00:00 Completed [facility] Pediarix (dtap/hep B/ipv) 2004-06-26 00:00:00 Completed [facility] HIB 4 Dose Schedule 2004-06-26 00:00:00 Completed [facility] Pediarix (dtap/hep B/ipv) 2004-06-26 00:00:00 Completed [facility] HIB 4 Dose Schedule 2004-06-26 00:00:00 Completed [facility] Pediarix (dtap/hep B/ipv) 2004-06-26 00:00:00 Completed [facility] HIB 4 Dose Schedule 2004-06-26 00:00:00 Completed [facility] Pediarix (dtap/hep B/ipv) 2004-06-26 00:00:00 Completed [facility] HIB 4 Dose Schedule 2004-06-26 00:00:00 Completed [facility] Pediarix (dtap/hep B/ipv) 2004-06-26 00:00:00 Completed [facility] HIB 4 Dose Schedule 2004-06-26 00:00:00 Completed [facility] HIB 4 Dose Schedule 2004-06-26 00:00:00 Completed [facility] Pediarix (dtap/hep B/ipv) 2004-06-26 00:00:00 Completed [facility] Pediarix (dtap/hep B/ipv) 2004-06-26 00:00:00 Completed [facility] HIB 4 Dose Schedule 2004-06-26 00:00:00 Completed [facility] Pediarix (dtap/hep B/ipv) 2004-06-26 00:00:00 Completed [facility] HIB 4 Dose Schedule 2004-06-26 00:00:00 Completed [facility] Pediarix (dtap/hep B/ipv) 2004-06-26 00:00:00 Completed [facility] HIB 4 Dose Schedule 2004-06-26 00:00:00 Completed [facility] Pediarix (dtap/hep B/ipv) 2004-06-26 00:00:00 Completed [facility] HIB 4 Dose Schedule 2004-06-26 00:00:00 Completed [facility] Pediarix (dtap/hep B/ipv) 2004-06-26 00:00:00 Completed [facility] HIB 4 Dose Schedule 2004-06-26 00:00:00 Completed [facility] Pediarix (dtap/hep B/ipv) 2004-06-26 00:00:00 Completed [facility] HIB 4 Dose Schedule 2004-06-26 00:00:00 Completed [facility] Pediarix (dtap/hep B/ipv) 2004-06-26 00:00:00 Completed [facility] HIB 4 Dose Schedule 2004-06-26 00:00:00 Completed [facility] Pediarix (dtap/hep B/ipv) 2004-06-26 00:00:00 Completed [facility] Pneumococcal 7 Conjugate, PCV7 (Prevnar7) 2004-05-01 00:00:00 Completed [facility] HIB 4 Dose Schedule 2004-05-01 00:00:00 Completed [facility] Pediarix (dtap/hep B/ipv) 2004-05-01 00:00:00 Completed [facility] Pneumococcal 7 Conjugate, PCV7 (Prevnar7) 2004-05-01 00:00:00 Completed [facility] HIB 4 Dose Schedule 2004-05-01 00:00:00 Completed [facility] HIB 4 Dose Schedule 2004-05-01 00:00:00 Completed [facility] Pediarix (dtap/hep B/ipv) 2004-05-01 00:00:00 Completed [facility] Pneumococcal 7 Conjugate, PCV7 (Prevnar7) 2004-05-01 00:00:00 Completed [facility] Pediarix (dtap/hep B/ipv) 2004-05-01 00:00:00 Completed [facility] HIB 4 Dose Schedule 2004-05-01 00:00:00 Completed [facility] Pediarix (dtap/hep B/ipv) 2004-05-01 00:00:00 Completed [facility] Pneumococcal 7 Conjugate, PCV7 (Prevnar7) 2004-05-01 00:00:00 Completed [facility] Pneumococcal 7 Conjugate, PCV7 (Prevnar7) 2004-05-01 00:00:00 Completed [facility] HIB 4 Dose Schedule 2004-05-01 00:00:00 Completed [facility] Pediarix (dtap/hep B/ipv) 2004-05-01 00:00:00 Completed [facility] Pneumococcal 7 Conjugate, PCV7 (Prevnar7) 2004-05-01 00:00:00 Completed [facility] HIB 4 Dose Schedule 2004-05-01 00:00:00 Completed [facility] Pediarix (dtap/hep B/ipv) 2004-05-01 00:00:00 Completed [facility] Pneumococcal 7 Conjugate, PCV7 (Prevnar7) 2004-05-01 00:00:00 Completed [facility] HIB 4 Dose Schedule 2004-05-01 00:00:00 Completed [facility] Pediarix (dtap/hep B/ipv) 2004-05-01 00:00:00 Completed [facility] Pneumococcal 7 Conjugate, PCV7 (Prevnar7) 2004-05-01 00:00:00 Completed [facility] HIB 4 Dose Schedule 2004-05-01 00:00:00 Completed [facility] Pediarix (dtap/hep B/ipv) 2004-05-01 00:00:00 Completed [facility] Pneumococcal 7 Conjugate, PCV7 (Prevnar7) 2004-05-01 00:00:00 Completed [facility] HIB 4 Dose Schedule 2004-05-01 00:00:00 Completed [facility] Pediarix (dtap/hep B/ipv) 2004-05-01 00:00:00 Completed [facility] Pneumococcal 7 Conjugate, PCV7 (Prevnar7) 2004-05-01 00:00:00 Completed [facility] HIB 4 Dose Schedule 2004-05-01 00:00:00 Completed [facility] Pediarix (dtap/hep B/ipv) 2004-05-01 00:00:00 Completed [facility] Pneumococcal 7 Conjugate, PCV7 (Prevnar7) 2004-05-01 00:00:00 Completed [facility] HIB 4 Dose Schedule 2004-05-01 00:00:00 Completed [facility] HIB 4 Dose Schedule 2004-05-01 00:00:00 Completed [facility] Pediarix (dtap/hep B/ipv) 2004-05-01 00:00:00 Completed [facility] Pneumococcal 7 Conjugate, PCV7 (Prevnar7) 2004-05-01 00:00:00 Completed [facility] Pediarix (dtap/hep B/ipv) 2004-05-01 00:00:00 Completed [facility] HIB 4 Dose Schedule 2004-05-01 00:00:00 Completed [facility] Pediarix (dtap/hep B/ipv) 2004-05-01 00:00:00 Completed [facility] Pneumococcal 7 Conjugate, PCV7 (Prevnar7) 2004-05-01 00:00:00 Completed [facility] Pneumococcal 7 Conjugate, PCV7 (Prevnar7) 2004-05-01 00:00:00 Completed [facility] HIB 4 Dose Schedule 2004-05-01 00:00:00 Completed [facility] Pediarix (dtap/hep B/ipv) 2004-05-01 00:00:00 Completed [facility] Pneumococcal 7 Conjugate, PCV7 (Prevnar7) 2004-05-01 00:00:00 Completed [facility] HIB 4 Dose Schedule 2004-05-01 00:00:00 Completed [facility] Pediarix (dtap/hep B/ipv) 2004-05-01 00:00:00 Completed [facility] Pneumococcal 7 Conjugate, PCV7 (Prevnar7) 2004-05-01 00:00:00 Completed [facility] HIB 4 Dose Schedule 2004-05-01 00:00:00 Completed [facility] HIB 4 Dose Schedule 2004-05-01 00:00:00 Completed [facility] Pediarix (dtap/hep B/ipv) 2004-05-01 00:00:00 Completed [facility] Pneumococcal 7 Conjugate, PCV7 (Prevnar7) 2004-05-01 00:00:00 Completed [facility] HIB 4 Dose Schedule 2004-05-01 00:00:00 Completed [facility] Pediarix (dtap/hep B/ipv) 2004-05-01 00:00:00 Completed [facility] Pneumococcal 7 Conjugate, PCV7 (Prevnar7) 2004-05-01 00:00:00 Completed [facility] HIB 4 Dose Schedule 2004-05-01 00:00:00 Completed [facility] Pediarix (dtap/hep B/ipv) 2004-05-01 00:00:00 Completed [facility] Pneumococcal 7 Conjugate, PCV7 (Prevnar7) 2004-05-01 00:00:00 Completed [facility] HIB 4 Dose Schedule 2004-05-01 00:00:00 Completed [facility] Pediarix (dtap/hep B/ipv) 2004-05-01 00:00:00 Completed [facility] Pneumococcal 7 Conjugate, PCV7 (Prevnar7) 2004-05-01 00:00:00 Completed [facility] HIB 4 Dose Schedule 2004-05-01 00:00:00 Completed [facility] Pediarix (dtap/hep B/ipv) 2004-05-01 00:00:00 Completed [facility] Pneumococcal 7 Conjugate, PCV7 (Prevnar7) 2004-05-01 00:00:00 Completed [facility] HIB 4 Dose Schedule 2004-05-01 00:00:00 Completed [facility] Pediarix (dtap/hep B/ipv) 2004-05-01 00:00:00 Completed [facility] Pneumococcal 7 Conjugate, PCV7 (Prevnar7) 2004-05-01 00:00:00 Completed [facility] HIB 4 Dose Schedule 2004-05-01 00:00:00 Completed [facility] Pediarix (dtap/hep B/ipv) 2004-05-01 00:00:00 Completed [facility] Pneumococcal 7 Conjugate, PCV7 (Prevnar7) 2004-05-01 00:00:00 Completed [facility] HIB 4 Dose Schedule 2004-05-01 00:00:00 Completed [facility] HIB 4 Dose Schedule 2004-05-01 00:00:00 Completed [facility] Pediarix (dtap/hep B/ipv) 2004-05-01 00:00:00 Completed [facility] Pediarix (dtap/hep B/ipv) 2004-05-01 00:00:00 Completed [facility] Pneumococcal 7 Conjugate, PCV7 (Prevnar7) 2004-05-01 00:00:00 Completed [facility] Pediarix (dtap/hep B/ipv) 2004-05-01 00:00:00 Completed [facility] HIB 4 Dose Schedule 2004-05-01 00:00:00 Completed [facility] [facility] Pediarix (dtap/hep B/ipv) 2004-05-01 00:00:00 Completed [facility] Pneumococcal 7 Conjugate, PCV7 (Prevnar7) 2004-05-01 00:00:00 Completed [facility] Pneumococcal 7 Conjugate, PCV7 (Prevnar7) 2004-05-01 00:00:00 Completed [facility] HIB 4 Dose Schedule 2004-05-01 00:00:00 Completed [facility] Pediarix (dtap/hep B/ipv) 2004-05-01 00:00:00 Completed [facility] Pneumococcal 7 Conjugate, PCV7 (Prevnar7) 2004-05-01 00:00:00 Completed [facility] HIB 4 Dose Schedule 2004-05-01 00:00:00 Completed [facility] Pediarix (dtap/hep B/ipv) 2004-05-01 00:00:00 Completed [facility] Pneumococcal 7 Conjugate, PCV7 (Prevnar7) 2004-05-01 00:00:00 Completed [facility] HIB 4 Dose Schedule 2004-05-01 00:00:00 Completed [facility] Pediarix (dtap/hep B/ipv) 2004-05-01 00:00:00 Completed [facility] Pneumococcal 7 Conjugate, PCV7 (Prevnar7) 2004-05-01 00:00:00 Completed [facility] HIB 4 Dose Schedule 2004-05-01 00:00:00 Completed [facility] Pediarix (dtap/hep B/ipv) 2004-05-01 00:00:00 Completed [facility] Pneumococcal 7 Conjugate, PCV7 (Prevnar7) 2004-05-01 00:00:00 Completed [facility] HIB 4 Dose Schedule 2004-05-01 00:00:00 Completed [facility] Pediarix (dtap/hep B/ipv) 2004-05-01 00:00:00 Completed [facility] Pneumococcal 7 Conjugate, PCV7 (Prevnar7) 2004-05-01 00:00:00 Completed [facility] HIB 4 Dose Schedule 2004-05-01 00:00:00 Completed [facility] Pediarix (dtap/hep B/ipv) 2004-05-01 00:00:00 Completed [facility] Pneumococcal 7 Conjugate, PCV7 (Prevnar7) 2004-05-01 00:00:00 Completed [facility] HIB 4 Dose Schedule 2004-05-01 00:00:00 Completed [facility] Pediarix (dtap/hep B/ipv) 2004-05-01 00:00:00 Completed [facility] Pneumococcal 7 Conjugate, PCV7 (Prevnar7) 2004-05-01 00:00:00 Completed [facility] HIB 4 Dose Schedule 2004-05-01 00:00:00 Completed [facility] Pediarix (dtap/hep B/ipv) 2004-05-01 00:00:00 Completed [facility] Pneumococcal 7 Conjugate, PCV7 (Prevnar7) 2004-05-01 00:00:00 Completed [facility] HIB 4 Dose Schedule 2004-05-01 00:00:00 Completed [facility] Pediarix (dtap/hep B/ipv) 2004-05-01 00:00:00 Completed [facility] Pneumococcal 7 Conjugate, PCV7 (Prevnar7) 2004-05-01 00:00:00 Completed [facility] HIB 4 Dose Schedule 2004-05-01 00:00:00 Completed [facility] Pediarix (dtap/hep B/ipv) 2004-05-01 00:00:00 Completed [facility] Pneumococcal 7 Conjugate, PCV7 (Prevnar7) 2004-05-01 00:00:00 Completed [facility] Pneumococcal 7 Conjugate, PCV7 (Prevnar7) 2004-05-01 00:00:00 Completed [facility] HIB 4 Dose Schedule 2004-05-01 00:00:00 Completed [facility] Pediarix (dtap/hep B/ipv) 2004-05-01 00:00:00 Completed [facility] HIB 4 Dose Schedule 2004-05-01 00:00:00 Completed [facility] Pediarix (dtap/hep B/ipv) 2004-05-01 00:00:00 Completed [facility] Pneumococcal 7 Conjugate, PCV7 (Prevnar7) 2004-05-01 00:00:00 Completed [facility] Pneumococcal 7 Conjugate, PCV7 (Prevnar7) 2004-05-01 00:00:00 Completed [facility] HIB 4 Dose Schedule 2004-05-01 00:00:00 Completed [facility] Pediarix (dtap/hep B/ipv) 2004-05-01 00:00:00 Completed [facility] Pneumococcal 7 Conjugate, PCV7 (Prevnar7) 2004-05-01 00:00:00 Completed [facility] HIB 4 Dose Schedule 2004-05-01 00:00:00 Completed [facility] Pediarix (dtap/hep B/ipv) 2004-05-01 00:00:00 Completed [facility] Pneumococcal 7 Conjugate, PCV7 (Prevnar7) 2004-05-01 00:00:00 Completed [facility] HIB 4 Dose Schedule 2004-05-01 00:00:00 Completed [facility] Pediarix (dtap/hep B/ipv) 2004-05-01 00:00:00 Completed [facility] Pneumococcal 7 Conjugate, PCV7 (Prevnar7) 2004-05-01 00:00:00 Completed [facility] HIB 4 Dose Schedule 2004-05-01 00:00:00 Completed [facility] Pediarix (dtap/hep B/ipv) 2004-05-01 00:00:00 Completed [facility] Pneumococcal 7 Conjugate, PCV7 (Prevnar7) 2004-05-01 00:00:00 Completed [facility] HIB 4 Dose Schedule 2004-05-01 00:00:00 Completed [facility] Pediarix (dtap/hep B/ipv) 2004-05-01 00:00:00 Completed [facility] Pneumococcal 7 Conjugate, PCV7 (Prevnar7) 2004-05-01 00:00:00 Completed [facility] HIB 4 Dose Schedule 2004-05-01 00:00:00 Completed [facility] Pediarix (dtap/hep B/ipv) 2004-05-01 00:00:00 Completed [facility] Pneumococcal 7 Conjugate, PCV7 (Prevnar7) 2004-05-01 00:00:00 Completed [facility] HIB 4 Dose Schedule 2004-05-01 00:00:00 Completed [facility] Pediarix (dtap/hep B/ipv) 2004-05-01 00:00:00 Completed [facility] Pneumococcal 7 Conjugate, PCV7 (Prevnar7) 2004-05-01 00:00:00 Completed [facility] HIB 4 Dose Schedule 2004-05-01 00:00:00 Completed [facility] Pediarix (dtap/hep B/ipv) 2004-05-01 00:00:00 Completed [facility] Pneumococcal 7 Conjugate, PCV7 (Prevnar7) 2004-05-01 00:00:00 Completed [facility] HIB 4 Dose Schedule 2004-05-01 00:00:00 Completed [facility] Pediarix (dtap/hep B/ipv) 2004-05-01 00:00:00 Completed [facility] Pneumococcal 7 Conjugate, PCV7 (Prevnar7) 2004-05-01 00:00:00 Completed [facility] HIB 4 Dose Schedule 2004-05-01 00:00:00 Completed [facility] Pediarix (dtap/hep B/ipv) 2004-05-01 00:00:00 Completed [facility] HIB 4 Dose Schedule 2004-05-01 00:00:00 Completed [facility] Pneumococcal 7 Conjugate, PCV7 (Prevnar7) 2004-05-01 00:00:00 Completed [facility] Pediarix (dtap/hep B/ipv) 2004-05-01 00:00:00 Completed [facility] HIB 4 Dose Schedule 2004-05-01 00:00:00 Completed [facility] Pediarix (dtap/hep B/ipv) 2004-05-01 00:00:00 Completed [facility] Pneumococcal 7 Conjugate, PCV7 (Prevnar7) 2004-05-01 00:00:00 Completed [facility] Pneumococcal 7 Conjugate, PCV7 (Prevnar7) 2004-05-01 00:00:00 Completed [facility] HIB 4 Dose Schedule 2004-05-01 00:00:00 Completed [facility] Pediarix (dtap/hep B/ipv) 2004-05-01 00:00:00 Completed [facility] Pneumococcal 7 Conjugate, PCV7 (Prevnar7) 2004-05-01 00:00:00 Completed [facility] HIB 4 Dose Schedule 2004-05-01 00:00:00 Completed [facility] Pediarix (dtap/hep B/ipv) 2004-05-01 00:00:00 Completed [facility] Pneumococcal 7 Conjugate, PCV7 (Prevnar7) 2004-05-01 00:00:00 Completed [facility] HIB 4 Dose Schedule 2004-05-01 00:00:00 Completed [facility] Pediarix (dtap/hep B/ipv) 2004-05-01 00:00:00 Completed [facility] Pneumococcal 7 Conjugate, PCV7 (Prevnar7) 2004-05-01 00:00:00 Completed [facility] HIB 4 Dose Schedule 2004-05-01 00:00:00 Completed [facility] Pediarix (dtap/hep B/ipv) 2004-05-01 00:00:00 Completed [facility] Pneumococcal 7 Conjugate, PCV7 (Prevnar7) 2004-05-01 00:00:00 Completed [facility] HIB 4 Dose Schedule 2004-05-01 00:00:00 Completed [facility] Pediarix (dtap/hep B/ipv) 2004-05-01 00:00:00 Completed [facility] Pneumococcal 7 Conjugate, PCV7 (Prevnar7) 2004-05-01 00:00:00 Completed [facility] HIB 4 Dose Schedule 2004-05-01 00:00:00 Completed [facility] Pediarix (dtap/hep B/ipv) 2004-05-01 00:00:00 Completed [facility] HIB 4 Dose Schedule 2004-05-01 00:00:00 Completed [facility] Pneumococcal 7 Conjugate, PCV7 (Prevnar7) 2004-05-01 00:00:00 Completed [facility] Pediarix (dtap/hep B/ipv) 2004-05-01 00:00:00 Completed [facility] Pneumococcal 7 Conjugate, PCV7 (Prevnar7) 2004-05-01 00:00:00 Completed [facility] HIB 4 Dose Schedule 2004-05-01 00:00:00 Completed [facility] Pediarix (dtap/hep B/ipv) 2004-05-01 00:00:00 Completed [facility] Pneumococcal 7 Conjugate, PCV7 (Prevnar7) 2004-05-01 00:00:00 Completed [facility] HIB 4 Dose Schedule 2004-05-01 00:00:00 Completed [facility] Pediarix (dtap/hep B/ipv) 2004-05-01 00:00:00 Completed [facility] Pneumococcal 7 Conjugate, PCV7 (Prevnar7) 2004-05-01 00:00:00 Completed [facility] HIB 4 Dose Schedule 2004-05-01 00:00:00 Completed [facility] HIB 4 Dose Schedule 2004-05-01 00:00:00 Completed [facility] Pediarix (dtap/hep B/ipv) 2004-05-01 00:00:00 Completed [facility] Pneumococcal 7 Conjugate, PCV7 (Prevnar7) 2004-05-01 00:00:00 Completed [facility] HIB 4 Dose Schedule 2004-05-01 00:00:00 Completed [facility] Pediarix (dtap/hep B/ipv) 2004-05-01 00:00:00 Completed [facility] Pediarix (dtap/hep B/ipv) 2004-05-01 00:00:00 Completed [facility] Pneumococcal 7 Conjugate, PCV7 (Prevnar7) 2004-05-01 00:00:00 Completed [facility] Pneumococcal 7 Conjugate, PCV7 (Prevnar7) 2004-05-01 00:00:00 Completed [facility] HIB 4 Dose Schedule 2004-05-01 00:00:00 Completed [facility] Pediarix (dtap/hep B/ipv) 2004-05-01 00:00:00 Completed [facility] Pneumococcal 7 Conjugate, PCV7 (Prevnar7) 2004-05-01 00:00:00 Completed [facility] HIB 4 Dose Schedule 2004-05-01 00:00:00 Completed [facility] Pediarix (dtap/hep B/ipv) 2004-05-01 00:00:00 Completed [facility] Pneumococcal 7 Conjugate, PCV7 (Prevnar7) 2004-05-01 00:00:00 Completed [facility] HIB 4 Dose Schedule 2004-05-01 00:00:00 Completed [facility] Pediarix (dtap/hep B/ipv) 2004-05-01 00:00:00 Completed [facility] Pneumococcal 7 Conjugate, PCV7 (Prevnar7) 2004-05-01 00:00:00 Completed [facility] HIB 4 Dose Schedule 2004-05-01 00:00:00 Completed [facility] Pediarix (dtap/hep B/ipv) 2004-05-01 00:00:00 Completed [facility] Pneumococcal 7 Conjugate, PCV7 (Prevnar7) 2004-05-01 00:00:00 Completed [facility] HIB 4 Dose Schedule 2004-05-01 00:00:00 Completed [facility] Pediarix (dtap/hep B/ipv) 2004-05-01 00:00:00 Completed [facility] Pneumococcal 7 Conjugate, PCV7 (Prevnar7) 2004-05-01 00:00:00 Completed [facility] HIB 4 Dose Schedule 2004-05-01 00:00:00 Completed [facility] Pediarix (dtap/hep B/ipv) 2004-05-01 00:00:00 Completed [facility] Pneumococcal 7 Conjugate, PCV7 (Prevnar7) 2004-05-01 00:00:00 Completed [facility] HIB 4 Dose Schedule 2004-05-01 00:00:00 Completed [facility] Pediarix (dtap/hep B/ipv) 2004-05-01 00:00:00 Completed [facility] Pneumococcal 7 Conjugate, PCV7 (Prevnar7) 2004-02-23 00:00:00 Completed [facility] HIB 4 Dose Schedule 2004-02-23 00:00:00 Completed [facility] Pediarix (dtap/hep B/ipv) 2004-02-23 00:00:00 Completed [facility] Pneumococcal 7 Conjugate, PCV7 (Prevnar7) 2004-02-23 00:00:00 Completed [facility] HIB 4 Dose Schedule 2004-02-23 00:00:00 Completed [facility] HIB 4 Dose Schedule 2004-02-23 00:00:00 Completed [facility] Pediarix (dtap/hep B/ipv) 2004-02-23 00:00:00 Completed [facility] Pneumococcal 7 Conjugate, PCV7 (Prevnar7) 2004-02-23 00:00:00 Completed [facility] Pediarix (dtap/hep B/ipv) 2004-02-23 00:00:00 Completed [facility] HIB 4 Dose Schedule 2004-02-23 00:00:00 Completed [facility] Pediarix (dtap/hep B/ipv) 2004-02-23 00:00:00 Completed [facility] Pneumococcal 7 Conjugate, PCV7 (Prevnar7) 2004-02-23 00:00:00 Completed [facility] Pneumococcal 7 Conjugate, PCV7 (Prevnar7) 2004-02-23 00:00:00 Completed [facility] HIB 4 Dose Schedule 2004-02-23 00:00:00 Completed [facility] Pediarix (dtap/hep B/ipv) 2004-02-23 00:00:00 Completed [facility] Pneumococcal 7 Conjugate, PCV7 (Prevnar7) 2004-02-23 00:00:00 Completed [facility] HIB 4 Dose Schedule 2004-02-23 00:00:00 Completed [facility] Pediarix (dtap/hep B/ipv) 2004-02-23 00:00:00 Completed [facility] Pneumococcal 7 Conjugate, PCV7 (Prevnar7) 2004-02-23 00:00:00 Completed [facility] HIB 4 Dose Schedule 2004-02-23 00:00:00 Completed [facility] Pediarix (dtap/hep B/ipv) 2004-02-23 00:00:00 Completed [facility] Pneumococcal 7 Conjugate, PCV7 (Prevnar7) 2004-02-23 00:00:00 Completed [facility] HIB 4 Dose Schedule 2004-02-23 00:00:00 Completed [facility] Pediarix (dtap/hep B/ipv) 2004-02-23 00:00:00 Completed [facility] Pneumococcal 7 Conjugate, PCV7 (Prevnar7) 2004-02-23 00:00:00 Completed [facility] HIB 4 Dose Schedule 2004-02-23 00:00:00 Completed [facility] Pediarix (dtap/hep B/ipv) 2004-02-23 00:00:00 Completed [facility] Pneumococcal 7 Conjugate, PCV7 (Prevnar7) 2004-02-23 00:00:00 Completed [facility] HIB 4 Dose Schedule 2004-02-23 00:00:00 Completed [facility] Pediarix (dtap/hep B/ipv) 2004-02-23 00:00:00 Completed [facility] Pneumococcal 7 Conjugate, PCV7 (Prevnar7) 2004-02-23 00:00:00 Completed [facility] HIB 4 Dose Schedule 2004-02-23 00:00:00 Completed [facility] HIB 4 Dose Schedule 2004-02-23 00:00:00 Completed [facility] Pediarix (dtap/hep B/ipv) 2004-02-23 00:00:00 Completed [facility] Pediarix (dtap/hep B/ipv) 2004-02-23 00:00:00 Completed [facility] Pneumococcal 7 Conjugate, PCV7 (Prevnar7) 2004-02-23 00:00:00 Completed [facility] HIB 4 Dose Schedule 2004-02-23 00:00:00 Completed [facility] HIB 4 Dose Schedule 2004-02-23 00:00:00 Completed [facility] Pediarix (dtap/hep B/ipv) 2004-02-23 00:00:00 Completed [facility] Pneumococcal 7 Conjugate, PCV7 (Prevnar7) 2004-02-23 00:00:00 Completed [facility] Pneumococcal 7 Conjugate, PCV7 (Prevnar7) 2004-02-23 00:00:00 Completed [facility] HIB 4 Dose Schedule 2004-02-23 00:00:00 Completed [facility] Pediarix (dtap/hep B/ipv) 2004-02-23 00:00:00 Completed [facility] Pneumococcal 7 Conjugate, PCV7 (Prevnar7) 2004-02-23 00:00:00 Completed [facility] HIB 4 Dose Schedule 2004-02-23 00:00:00 Completed [facility] Pediarix (dtap/hep B/ipv) 2004-02-23 00:00:00 Completed [facility] Pneumococcal 7 Conjugate, PCV7 (Prevnar7) 2004-02-23 00:00:00 Completed [facility] HIB 4 Dose Schedule 2004-02-23 00:00:00 Completed [facility] Pediarix (dtap/hep B/ipv) 2004-02-23 00:00:00 Completed [facility] Pneumococcal 7 Conjugate, PCV7 (Prevnar7) 2004-02-23 00:00:00 Completed [facility] HIB 4 Dose Schedule 2004-02-23 00:00:00 Completed [facility] Pediarix (dtap/hep B/ipv) 2004-02-23 00:00:00 Completed [facility] Pneumococcal 7 Conjugate, PCV7 (Prevnar7) 2004-02-23 00:00:00 Completed [facility] HIB 4 Dose Schedule 2004-02-23 00:00:00 Completed [facility] Pediarix (dtap/hep B/ipv) 2004-02-23 00:00:00 Completed [facility] Pneumococcal 7 Conjugate, PCV7 (Prevnar7) 2004-02-23 00:00:00 Completed [facility] HIB 4 Dose Schedule 2004-02-23 00:00:00 Completed [facility] Pediarix (dtap/hep B/ipv) 2004-02-23 00:00:00 Completed [facility] Pneumococcal 7 Conjugate, PCV7 (Prevnar7) 2004-02-23 00:00:00 Completed [facility] HIB 4 Dose Schedule 2004-02-23 00:00:00 Completed [facility] Pediarix (dtap/hep B/ipv) 2004-02-23 00:00:00 Completed [facility] Pneumococcal 7 Conjugate, PCV7 (Prevnar7) 2004-02-23 00:00:00 Completed [facility] HIB 4 Dose Schedule 2004-02-23 00:00:00 Completed [facility] Pediarix (dtap/hep B/ipv) 2004-02-23 00:00:00 Completed [facility] Pneumococcal 7 Conjugate, PCV7 (Prevnar7) 2004-02-23 00:00:00 Completed [facility] Pediarix (dtap/hep B/ipv) 2004-02-23 00:00:00 Completed [facility] HIB 4 Dose Schedule 2004-02-23 00:00:00 Completed [facility] Pediarix (dtap/hep B/ipv) 2004-02-23 00:00:00 Completed [facility] Pneumococcal 7 Conjugate, PCV7 (Prevnar7) 2004-02-23 00:00:00 Completed [facility] HIB 4 Dose Schedule 2004-02-23 00:00:00 Completed [facility] Pediarix (dtap/hep B/ipv) 2004-02-23 00:00:00 Completed [facility] HIB 4 Dose Schedule 2004-02-23 00:00:00 Completed [facility] Pediarix (dtap/hep B/ipv) 2004-02-23 00:00:00 Completed [facility] Pneumococcal 7 Conjugate, PCV7 (Prevnar7) 2004-02-23 00:00:00 Completed [facility] HIB 4 Dose Schedule 2004-02-23 00:00:00 Completed [facility] Pediarix (dtap/hep B/ipv) 2004-02-23 00:00:00 Completed [facility] Pneumococcal 7 Conjugate, PCV7 (Prevnar7) 2004-02-23 00:00:00 Completed [facility] Pneumococcal 7 Conjugate, PCV7 (Prevnar7) 2004-02-23 00:00:00 Completed [facility] HIB 4 Dose Schedule 2004-02-23 00:00:00 Completed [facility] Pediarix (dtap/hep B/ipv) 2004-02-23 00:00:00 Completed [facility] Pneumococcal 7 Conjugate, PCV7 (Prevnar7) 2004-02-23 00:00:00 Completed [facility] HIB 4 Dose Schedule 2004-02-23 00:00:00 Completed [facility] Pediarix (dtap/hep B/ipv) 2004-02-23 00:00:00 Completed [facility] Pneumococcal 7 Conjugate, PCV7 (Prevnar7) 2004-02-23 00:00:00 Completed [facility] HIB 4 Dose Schedule 2004-02-23 00:00:00 Completed [facility] Pediarix (dtap/hep B/ipv) 2004-02-23 00:00:00 Completed [facility] Pneumococcal 7 Conjugate, PCV7 (Prevnar7) 2004-02-23 00:00:00 Completed [facility] HIB 4 Dose Schedule 2004-02-23 00:00:00 Completed [facility] Pediarix (dtap/hep B/ipv) 2004-02-23 00:00:00 Completed [facility] Pneumococcal 7 Conjugate, PCV7 (Prevnar7) 2004-02-23 00:00:00 Completed [facility] HIB 4 Dose Schedule 2004-02-23 00:00:00 Completed [facility] Pediarix (dtap/hep B/ipv) 2004-02-23 00:00:00 Completed [facility] Pneumococcal 7 Conjugate, PCV7 (Prevnar7) 2004-02-23 00:00:00 Completed [facility] HIB 4 Dose Schedule 2004-02-23 00:00:00 Completed [facility] Pediarix (dtap/hep B/ipv) 2004-02-23 00:00:00 Completed [facility] Pneumococcal 7 Conjugate, PCV7 (Prevnar7) 2004-02-23 00:00:00 Completed [facility] HIB 4 Dose Schedule 2004-02-23 00:00:00 Completed [facility] Pediarix (dtap/hep B/ipv) 2004-02-23 00:00:00 Completed [facility] Pneumococcal 7 Conjugate, PCV7 (Prevnar7) 2004-02-23 00:00:00 Completed [facility] HIB 4 Dose Schedule 2004-02-23 00:00:00 Completed [facility] Pediarix (dtap/hep B/ipv) 2004-02-23 00:00:00 Completed [facility] Pneumococcal 7 Conjugate, PCV7 (Prevnar7) 2004-02-23 00:00:00 Completed [facility] Pneumococcal 7 Conjugate, PCV7 (Prevnar7) 2004-02-23 00:00:00 Completed [facility] HIB 4 Dose Schedule 2004-02-23 00:00:00 Completed [facility] Pediarix (dtap/hep B/ipv) 2004-02-23 00:00:00 Completed [facility] Pneumococcal 7 Conjugate, PCV7 (Prevnar7) 2004-02-23 00:00:00 Completed [facility] HIB 4 Dose Schedule 2004-02-23 00:00:00 Completed [facility] Pediarix (dtap/hep B/ipv) 2004-02-23 00:00:00 Completed [facility] Pneumococcal 7 Conjugate, PCV7 (Prevnar7) 2004-02-23 00:00:00 Completed [facility] HIB 4 Dose Schedule 2004-02-23 00:00:00 Completed [facility] Pediarix (dtap/hep B/ipv) 2004-02-23 00:00:00 Completed [facility] HIB 4 Dose Schedule 2004-02-23 00:00:00 Completed [facility] Pediarix (dtap/hep B/ipv) 2004-02-23 00:00:00 Completed [facility] Pneumococcal 7 Conjugate, PCV7 (Prevnar7) 2004-02-23 00:00:00 Completed [facility] Pneumococcal 7 Conjugate, PCV7 (Prevnar7) 2004-02-23 00:00:00 Completed [facility] HIB 4 Dose Schedule 2004-02-23 00:00:00 Completed [facility] Pediarix (dtap/hep B/ipv) 2004-02-23 00:00:00 Completed [facility] Pneumococcal 7 Conjugate, PCV7 (Prevnar7) 2004-02-23 00:00:00 Completed [facility] HIB 4 Dose Schedule 2004-02-23 00:00:00 Completed [facility] Pediarix (dtap/hep B/ipv) 2004-02-23 00:00:00 Completed [facility] Pneumococcal 7 Conjugate, PCV7 (Prevnar7) 2004-02-23 00:00:00 Completed [facility] HIB 4 Dose Schedule 2004-02-23 00:00:00 Completed [facility] Pediarix (dtap/hep B/ipv) 2004-02-23 00:00:00 Completed [facility] Pneumococcal 7 Conjugate, PCV7 (Prevnar7) 2004-02-23 00:00:00 Completed [facility] HIB 4 Dose Schedule 2004-02-23 00:00:00 Completed [facility] Pediarix (dtap/hep B/ipv) 2004-02-23 00:00:00 Completed [facility] Pneumococcal 7 Conjugate, PCV7 (Prevnar7) 2004-02-23 00:00:00 Completed [facility] HIB 4 Dose Schedule 2004-02-23 00:00:00 Completed [facility] Pediarix (dtap/hep B/ipv) 2004-02-23 00:00:00 Completed [facility] Pneumococcal 7 Conjugate, PCV7 (Prevnar7) 2004-02-23 00:00:00 Completed [facility] HIB 4 Dose Schedule 2004-02-23 00:00:00 Completed [facility] Pediarix (dtap/hep B/ipv) 2004-02-23 00:00:00 Completed [facility] Pneumococcal 7 Conjugate, PCV7 (Prevnar7) 2004-02-23 00:00:00 Completed [facility] HIB 4 Dose Schedule 2004-02-23 00:00:00 Completed [facility] Pediarix (dtap/hep B/ipv) 2004-02-23 00:00:00 Completed [facility] Pneumococcal 7 Conjugate, PCV7 (Prevnar7) 2004-02-23 00:00:00 Completed [facility] HIB 4 Dose Schedule 2004-02-23 00:00:00 Completed [facility] Pediarix (dtap/hep B/ipv) 2004-02-23 00:00:00 Completed [facility] Pneumococcal 7 Conjugate, PCV7 (Prevnar7) 2004-02-23 00:00:00 Completed [facility] HIB 4 Dose Schedule 2004-02-23 00:00:00 Completed [facility] Pediarix (dtap/hep B/ipv) 2004-02-23 00:00:00 Completed [facility] Pneumococcal 7 Conjugate, PCV7 (Prevnar7) 2004-02-23 00:00:00 Completed [facility] HIB 4 Dose Schedule 2004-02-23 00:00:00 Completed [facility] HIB 4 Dose Schedule 2004-02-23 00:00:00 Completed [facility] Pediarix (dtap/hep B/ipv) 2004-02-23 00:00:00 Completed [facility] Pneumococcal 7 Conjugate, PCV7 (Prevnar7) 2004-02-23 00:00:00 Completed [facility] Pediarix (dtap/hep B/ipv) 2004-02-23 00:00:00 Completed [facility] HIB 4 Dose Schedule 2004-02-23 00:00:00 Completed [facility] Pediarix (dtap/hep B/ipv) 2004-02-23 00:00:00 Completed [facility] Pneumococcal 7 Conjugate, PCV7 (Prevnar7) 2004-02-23 00:00:00 Completed [facility] Pneumococcal 7 Conjugate, PCV7 (Prevnar7) 2004-02-23 00:00:00 Completed [facility] HIB 4 Dose Schedule 2004-02-23 00:00:00 Completed [facility] Pediarix (dtap/hep B/ipv) 2004-02-23 00:00:00 Completed [facility] Pneumococcal 7 Conjugate, PCV7 (Prevnar7) 2004-02-23 00:00:00 Completed [facility] HIB 4 Dose Schedule 2004-02-23 00:00:00 Completed [facility] Pediarix (dtap/hep B/ipv) 2004-02-23 00:00:00 Completed [facility] Pneumococcal 7 Conjugate, PCV7 (Prevnar7) 2004-02-23 00:00:00 Completed [facility] HIB 4 Dose Schedule 2004-02-23 00:00:00 Completed [facility] Pediarix (dtap/hep B/ipv) 2004-02-23 00:00:00 Completed [facility] Pneumococcal 7 Conjugate, PCV7 (Prevnar7) 2004-02-23 00:00:00 Completed [facility] HIB 4 Dose Schedule 2004-02-23 00:00:00 Completed [facility] Pediarix (dtap/hep B/ipv) 2004-02-23 00:00:00 Completed [facility] Pneumococcal 7 Conjugate, PCV7 (Prevnar7) 2004-02-23 00:00:00 Completed [facility] HIB 4 Dose Schedule 2004-02-23 00:00:00 Completed [facility] Pediarix (dtap/hep B/ipv) 2004-02-23 00:00:00 Completed [facility] Pneumococcal 7 Conjugate, PCV7 (Prevnar7) 2004-02-23 00:00:00 Completed [facility] HIB 4 Dose Schedule 2004-02-23 00:00:00 Completed [facility] HIB 4 Dose Schedule 2004-02-23 00:00:00 Completed [facility] Pediarix (dtap/hep B/ipv) 2004-02-23 00:00:00 Completed [facility] Pneumococcal 7 Conjugate, PCV7 (Prevnar7) 2004-02-23 00:00:00 Completed [facility] Pediarix (dtap/hep B/ipv) 2004-02-23 00:00:00 Completed [facility] Pneumococcal 7 Conjugate, PCV7 (Prevnar7) 2004-02-23 00:00:00 Completed [facility] HIB 4 Dose Schedule 2004-02-23 00:00:00 Completed [facility] Pediarix (dtap/hep B/ipv) 2004-02-23 00:00:00 Completed [facility] Pneumococcal 7 Conjugate, PCV7 (Prevnar7) 2004-02-23 00:00:00 Completed [facility] HIB 4 Dose Schedule 2004-02-23 00:00:00 Completed [facility] Pediarix (dtap/hep B/ipv) 2004-02-23 00:00:00 Completed [facility] Pneumococcal 7 Conjugate, PCV7 (Prevnar7) 2004-02-23 00:00:00 Completed [facility] HIB 4 Dose Schedule 2004-02-23 00:00:00 Completed [facility] HIB 4 Dose Schedule 2004-02-23 00:00:00 Completed [facility] Pediarix (dtap/hep B/ipv) 2004-02-23 00:00:00 Completed [facility] Pneumococcal 7 Conjugate, PCV7 (Prevnar7) 2004-02-23 00:00:00 Completed [facility] Pediarix (dtap/hep B/ipv) 2004-02-23 00:00:00 Completed [facility] HIB 4 Dose Schedule 2004-02-23 00:00:00 Completed [facility] Pediarix (dtap/hep B/ipv) 2004-02-23 00:00:00 Completed [facility] Pneumococcal 7 Conjugate, PCV7 (Prevnar7) 2004-02-23 00:00:00 Completed [facility] Pneumococcal 7 Conjugate, PCV7 (Prevnar7) 2004-02-23 00:00:00 Completed [facility] HIB 4 Dose Schedule 2004-02-23 00:00:00 Completed [facility] Pediarix (dtap/hep B/ipv) 2004-02-23 00:00:00 Completed [facility] Pneumococcal 7 Conjugate, PCV7 (Prevnar7) 2004-02-23 00:00:00 Completed [facility] HIB 4 Dose Schedule 2004-02-23 00:00:00 Completed [facility] Pediarix (dtap/hep B/ipv) 2004-02-23 00:00:00 Completed [facility] Pneumococcal 7 Conjugate, PCV7 (Prevnar7) 2004-02-23 00:00:00 Completed [facility] HIB 4 Dose Schedule 2004-02-23 00:00:00 Completed [facility] Pediarix (dtap/hep B/ipv) 2004-02-23 00:00:00 Completed [facility] Pneumococcal 7 Conjugate, PCV7 (Prevnar7) 2004-02-23 00:00:00 Completed [facility] HIB 4 Dose Schedule 2004-02-23 00:00:00 Completed [facility] Pediarix (dtap/hep B/ipv) 2004-02-23 00:00:00 Completed [facility] Pneumococcal 7 Conjugate, PCV7 (Prevnar7) 2004-02-23 00:00:00 Completed [facility] HIB 4 Dose Schedule 2004-02-23 00:00:00 Completed [facility] Pediarix (dtap/hep B/ipv) 2004-02-23 00:00:00 Completed [facility] Pneumococcal 7 Conjugate, PCV7 (Prevnar7) 2004-02-23 00:00:00 Completed [facility] HIB 4 Dose Schedule 2004-02-23 00:00:00 Completed [facility] Pediarix (dtap/hep B/ipv) 2004-02-23 00:00:00 Completed [facility] Pneumococcal 7 Conjugate, PCV7 (Prevnar7) 2004-02-23 00:00:00 Completed [facility] HIB 4 Dose Schedule 2004-02-23 00:00:00 Completed [facility] Pediarix (dtap/hep B/ipv) 2004-02-23 00:00:00 Completed [facility] Hep B, Adol or Pedi Dosage 2003 00:00:00 Completed [facility] Hep B, Adol or Pedi Dosage 2003 00:00:00 Completed [facility] Hep B, Adol or Pedi Dosage 2003 00:00:00 Completed [facility] Hep B, Adol or Pedi Dosage 2003 00:00:00 Completed [facility] Hep B, Adol or Pedi Dosage 2003 00:00:00 Completed [facility] Hep B, Adol or Pedi Dosage 2003 00:00:00 Completed [facility] Hep B, Adol or Pedi Dosage 2003 00:00:00 Completed [facility] Hep B, Adol or Pedi Dosage 2003 00:00:00 Completed [facility] Hep B, Adol or Pedi Dosage 2003 00:00:00 Completed [facility] Hep B, Adol or Pedi Dosage 2003 00:00:00 Completed [facility] Hep B, Adol or Pedi Dosage 2003 00:00:00 Completed [facility] Hep B, Adol or Pedi Dosage 2003 00:00:00 Completed [facility] Hep B, Adol or Pedi Dosage 2003 00:00:00 Completed [facility] Hep B, Adol or Pedi Dosage 2003 00:00:00 Completed [facility] Hep B, Adol or Pedi Dosage 2003 00:00:00 Completed [facility] Hep B, Adol or Pedi Dosage 2003 00:00:00 Completed [facility] Hep B, Adol or Pedi Dosage 2003 00:00:00 Completed [facility] Hep B, Adol or Pedi Dosage 2003 00:00:00 Completed [facility] Hep B, Adol or Pedi Dosage 2003 00:00:00 Completed [facility] Hep B, Adol or Pedi Dosage 2003 00:00:00 Completed [facility] Hep B, Adol or Pedi Dosage 2003 00:00:00 Completed [facility] Hep B, Adol or Pedi Dosage 2003 00:00:00 Completed [facility] Hep B, Adol or Pedi Dosage 2003 00:00:00 Completed [facility] Hep B, Adol or Pedi Dosage 2003 00:00:00 Completed [facility] Hep B, Adol or Pedi Dosage 2003 00:00:00 Completed [facility] Hep B, Adol or Pedi Dosage 2003 00:00:00 Completed [facility] Hep B, Adol or Pedi Dosage 2003 00:00:00 Completed [facility] Hep B, Adol or Pedi Dosage 2003 00:00:00 Completed [facility] Hep B, Adol or Pedi Dosage 2003 00:00:00 Completed [facility] Hep B, Adol or Pedi Dosage 2003 00:00:00 Completed [facility] Hep B, Adol or Pedi Dosage 2003 00:00:00 Completed [facility] Hep B, Adol or Pedi Dosage 2003 00:00:00 Completed [facility] Hep B, Adol or Pedi Dosage 2003 00:00:00 Completed [facility] Hep B, Adol or Pedi Dosage 2003 00:00:00 Completed [facility] Hep B, Adol or Pedi Dosage 2003 00:00:00 Completed [facility] Hep B, Adol or Pedi Dosage 2003 00:00:00 Completed [facility] Hep B, Adol or Pedi Dosage 2003 00:00:00 Completed [facility] Hep B, Adol or Pedi Dosage 2003 00:00:00 Completed [facility] Hep B, Adol or Pedi Dosage 2003 00:00:00 Completed [facility] Hep B, Adol or Pedi Dosage 2003 00:00:00 Completed [facility] Hep B, Adol or Pedi Dosage 2003 00:00:00 Completed [facility] Hep B, Adol or Pedi Dosage 2003 00:00:00 Completed [facility] Hep B, Adol or Pedi Dosage 2003 00:00:00 Completed [facility] Hep B, Adol or Pedi Dosage 2003 00:00:00 Completed [facility] Hep B, Adol or Pedi Dosage 2003 00:00:00 Completed [facility] Hep B, Adol or Pedi Dosage 2003 00:00:00 Completed [facility] Hep B, Adol or Pedi Dosage 2003 00:00:00 Completed [facility] Hep B, Adol or Pedi Dosage 2003 00:00:00 Completed [facility] Hep B, Adol or Pedi Dosage 2003 00:00:00 Completed [facility] Hep B, Adol or Pedi Dosage 2003 00:00:00 Completed [facility] Hep B, Adol or Pedi Dosage 2003 00:00:00 Completed [facility] Hep B, Adol or Pedi Dosage 2003 00:00:00 Completed [facility] Hep B, Adol or Pedi Dosage 2003 00:00:00 Completed [facility] Hep B, Adol or Pedi Dosage 2003 00:00:00 Completed [facility] Hep B, Adol or Pedi Dosage 2003 00:00:00 Completed [facility] Hep B, Adol or Pedi Dosage 2003 00:00:00 Completed [facility] Hep B, Adol or Pedi Dosage 2003 00:00:00 Completed [facility] Hep B, Adol or Pedi Dosage 2003 00:00:00 Completed [facility] Hep B, Adol or Pedi Dosage 2003 00:00:00 Completed [facility] Hep B, Adol or Pedi Dosage 2003 00:00:00 Completed [facility] Hep B, Adol or Pedi Dosage 2003 00:00:00 Completed [facility] Hep B, Adol or Pedi Dosage 2003 00:00:00 Completed [facility] Hep B, Adol or Pedi Dosage 2003 00:00:00 Completed [facility] Hep B, Adol or Pedi Dosage 2003 00:00:00 Completed [facility] Hep B, Adol or Pedi Dosage 2003 00:00:00 Completed [facility] Hep B, Adol or Pedi Dosage 2003 00:00:00 Completed [facility] Hep B, Adol or Pedi Dosage 2003 00:00:00 Completed [facility] Hep B, Adol or Pedi Dosage 2003 00:00:00 Completed [facility] Hep B, Adol or Pedi Dosage 2003 00:00:00 Completed [facility] Vital Signs Vital Name Observation Time Observation Value Comments S ource Systolic blood pressure 2023-02-09 16:22:00 106 mm[Hg] [facility] Diastolic blood pressure 2023-02-09 16:22:00 75 mm[Hg] [place] [facility] Heart rate 2023-02-09 16:22:00 79 [facility] temperature 2023-02-09 16:22:00 36.5 Nikki [facility] Respiratory rate 2023-02-09 16:22:00 16 /min [facility] Body height 2023-02-09 16:22:00 162.6 cm [facility] Body weight 2023-02-09 16:22:00 45.405 kg [facility] BMI 2023-02-09 16:22:00 17.18 kg/m2 [facility] Systolic blood pressure 2023-01-19 15:09:00 109 mm[Hg] [facility] Diastolic blood pressure 2023-01-19 15:09:00 74 mm[Hg] [facility] Heart rate 2023-01-19 15:09:00 82 [facility] Body temperature 2023-01-19 15:09:00 36.72 Nikki [facility] Respiratory rate 2023-01-19 15:09:00 16 /min [facility] Body height 2023-01-19 15:09:00 162.6 cm [facility] Body weight 2023-01-19 15:09:00 46.403 kg [facility] BMI 2023-01-19 15:09:00 17.56 kg/m2 [facility] Systolic blood pressure 2022-12-31 13:38:00 104 mm[Hg] [facility] Diastolic blood pressure 2022-12-31 13:38:00 76 mm[Hg] [facility] Heart rate 2022-12-31 13:38:00 92 /min [facility] Body temperature 2022-12-31 13:38:00 36.39 Nikki [facility] Respiratory rate 2022-12-31 13:38:00 17 /min [facility] Oxygen saturation in Arterial blood by Pulse oximetry 2022-12-31 13:38:00 97 /min [facility] Body height 2022-12-29 08:27:00 162.6 cm [facility] Body weight 2022-12-29 08:27:00 55.339 kg [facility] BMI 2022-12-29 08:27:00 20.94 kg/m2 [facility] Systolic blood pressure 2022-12-25 19:03:00 110 mm[Hg] [facility] Diastolic blood pressure 2022-12-25 19:03:00 69 mm[Hg] [facility] Heart rate 2022-12-25 19:03:00 89 /min [facility] Body temperature 2022-12-25 19:03:00 36.61 Nikki [facility] Respiratory rate 2022-12-25 19:03:00 16 /min [facility] Body height 2022-12-25 19:03:00 162.6 cm [facility] Body weight 2022-12-25 19:03:00 54.749 kg [facility] BMI 2022-12-25 19:03:00 20.72 kg/m2 [facility] Oxygen saturation in Arterial blood by Pulse oximetry 2022-12-25 19:03:00 98 /min [facility] Systolic blood pressure 2022-12-22 19:38:00 116 mm[Hg] [facility] Diastolic blood pressure 2022-12-22 19:38:00 65 mm[Hg] [facility] Heart rate 2022-12-22 19:38:00 90 /min [facility] Body temperature 2022-12-22 19:38:00 36.33 Nikki [facility] Respiratory rate 2022-12-22 19:38:00 16 /min [facility] Body height 2022-12-22 19:38:00 162.6 cm [facility] Body weight 2022-12-22 19:38:00 55.248 kg [facility] BMI 2022-12-22 19:38:00 20.91 kg/m2 [facility] Body mass index (BMI) [Percentile] Per age and sex 2022-12-22 19:38:00 41.80 % [facility] Oxygen saturation in Arterial blood by Pulse oximetry 2022-12-22 19:38:00 96 /min [facility] Systolic blood pressure 2022-12-18 19:36:00 114 mm[Hg] [facility] Diastolic blood pressure 2022-12-18 19:36:00 71 mm[Hg] [facility] Heart rate 2022-12-18 19:36:00 101 /min [facility] Body temperature 2022-12-18 19:36:00 36.89 Nikki [facility] Respiratory rate 2022-12-18 19:36:00 16 /min [facility] Body height 2022-12-18 19:36:00 162.6 cm [facility] Body weight 2022-12-18 19:36:00 54.341 kg [facility] BMI 2022-12-18 19:36:00 20.56 kg/m2 [facility] Body mass index (BMI) [Percentile] Per age and sex 2022-12-18 19:36:00 37.05 % [facility] Oxygen saturation in Arterial blood by Pulse oximetry 2022-12-18 19:36:00 97 /min [facility] Systolic blood pressure 2022-12-15 19:04:00 106 mm[Hg] [facility] Diastolic blood pressure 2022-12-15 19:04:00 68 mm[Hg] [facility] Heart rate 2022-12-15 19:04:00 69 /min [facility] Body temperature 2022-12-15 19:04:00 36.67 Nikki [facility] Respiratory rate 2022-12-15 19:04:00 16 /min [facility] Body height 2022-12-15 19:04:00 162.6 cm [facility] Body weight 2022-12-15 19:04:00 54.114 kg [facility] BMI 2022-12-15 19:04:00 20.48 kg/m2 [facility] Body mass index (BMI) [Percentile] Per age and sex 2022-12-15 19:04:00 35.97 % [facility] Systolic blood pressure 2022-12-12 19:17:00 113 mm[Hg] [facility] Diastolic blood pressure 2022-12-12 19:17:00 72 mm[Hg] [facility] Heart rate 2022-12-12 19:17:00 108 /min Unive [facility] Respiratory rate 2022-12-12 19:17:00 18 /min [facility] Body height 2022-12-12 19:17:00 162.6 cm [facility] Body weight 2022-12-12 19:17:00 53.071 kg [facility] BMI 2022-12-12 19:17:00 20.08 kg/m2 [facility] Body mass index (BMI) [Percentile] Per age and sex 2022-12-12 19:17:00 30.45 % [facility] Systolic blood pressure 2022-12-04 18:58:00 107 mm[Hg] [facility] Diastolic blood pressure 2022-12-04 18:58:00 70 mm[Hg] [facility] Heart rate 2022-12-04 18:58:00 103 /min Unive [facility] Respiratory rate 2022-12-04 18:58:00 18 /min [facility] Body height 2022-12-04 18:58:00 162.6 cm [facility] Body weight 2022-12-04 18:58:00 53.524 kg [facility] BMI 2022-12-04 18:58:00 20.25 kg/m2 [facility] Body mass index (BMI) [Percentile] Per age and sex 2022-12-04 18:58:00 32.87 % [facility] Systolic blood pressure 2022-11-27 18:59:00 104 mm[Hg] [facility] Diastolic blood pressure 2022-11-27 18:59:00 71 mm[Hg] [facility] Heart rate 2022-11-27 18:59:00 113 /min Unive [facility] Respiratory rate 2022-11-27 18:59:00 18 /min [facility] Body height 2022-11-27 18:59:00 162.6 cm [facility] Body weight 2022-11-27 18:59:00 52.617 kg [facility] BMI 2022-11-27 18:59:00 19.91 kg/m2 [facility] Body mass index (BMI) [Percentile] Per age and sex 2022-11-27 18:59:00 28.22 % [facility] Systolic blood pressure 2022-11-24 21:18:00 117 mm[Hg] [facility] Diastolic blood pressure 2022-11-24 21:18:00 74 mm[Hg] [facility] Heart rate 2022-11-24 21:18:00 110 /min [facility] Body temperature 2022-11-24 21:18:00 36.83 Nikki [facility] Respiratory rate 2022-11-24 21:18:00 16 /min [facility] Body height 2022-11-24 21:18:00 162.6 cm [facility] Body weight 2022-11-24 21:18:00 52.481 kg [facility] BMI 2022-11-24 21:18:00 19.86 kg/m2 [facility] Body mass index (BMI) [Percentile] Per age and sex 2022-11-24 21:18:00 27.55 % [facility] Oxygen saturation in Arterial blood by Pulse oximetry 2022-11-24 21:18:00 98 /min [facility] Systolic blood pressure 2022-11-17 18:27:00 112 mm[Hg] [facility] Diastolic blood pressure 2022-11-17 18:27:00 72 mm[Hg] [facility] Heart rate 2022-11-17 18:27:00 112 /min [facility] Body temperature 2022-11-17 18:27:00 36.72 Nikki [facility] Respiratory rate 2022-11-17 18:27:00 18 /min [facility] Body height 2022-11-17 18:27:00 162.6 cm [facility] Body weight 2022-11-17 18:27:00 52.708 kg [facility] BMI 2022-11-17 18:27:00 19.95 kg/m2 [facility] Body mass index (BMI) [Percentile] Per age and sex 2022-11-17 18:27:00 28.84 % [facility] Systolic blood pressure 2022-11-13 19:14:00 103 mm[Hg] [facility] Diastolic blood pressure 2022-11-13 19:14:00 70 mm[Hg] [facility] Heart rate 2022-11-13 19:14:00 82 /min Unive [facility] Respiratory rate 2022-11-13 19:14:00 18 /min [facility] Body height 2022-11-13 19:14:00 162.6 cm [facility] Body weight 2022-11-13 19:14:00 52.617 kg [facility] BMI 2022-11-13 19:14:00 19.91 kg/m2 [facility] Body mass index (BMI) [Percentile] Per age and sex 2022-11-13 19:14:00 28.32 % [facility] Systolic blood pressure 2022-11-05 21:13:00 110 mm[Hg] [facility] Diastolic blood pressure 2022-11-05 21:13:00 62 mm[Hg] [facility] Heart rate 2022-11-05 21:13:00 107 /min [facility] Body temperature 2022-11-05 21:13:00 36.89 Nikki [facility] Respiratory rate 2022-11-05 21:13:00 16 /min [facility] Body height 2022-11-05 21:13:00 162.6 cm [facility] Body weight 2022-11-05 21:13:00 52.39 kg [facility] BMI 2022-11-05 21:13:00 19.83 kg/m2 [facility] Body mass index (BMI) [Percentile] Per age and sex 2022-11-05 21:13:00 27.28 % [facility] Oxygen saturation in Arterial blood by Pulse oximetry 2022-11-05 21:13:00 97 /min [facility] Systolic blood pressure 2022-10-31 18:55:00 105 mm[Hg] [facility] Diastolic blood pressure 2022-10-31 18:55:00 68 mm[Hg] [facility] Heart rate 2022-10-31 18:55:00 105 /min [facility] Body temperature 2022-10-31 18:55:00 36.67 Nikki [facility] Respiratory rate 2022-10-31 18:55:00 16 /min [facility] Body height 2022-10-31 18:55:00 162.6 cm [facility] Body weight 2022-10-31 18:55:00 52.209 kg [facility] BMI 2022-10-31 18:55:00 19.76 kg/m2 [facility] Body mass index (BMI) [Percentile] Per age and sex 2022-10-31 18:55:00 26.37 % [facility] Oxygen saturation in Arterial blood by Pulse oximetry 2022-10-31 18:55:00 98 /min [facility] Systolic blood pressure 2022-10-22 16:27:00 107 mm[Hg] [facility] Diastolic blood pressure 2022-10-22 16:27:00 70 mm[Hg] [facility] Heart rate 2022-10-22 16:27:00 97 /min [facility] Respiratory rate 2022-10-22 16:27:00 18 /min [facility] Body height 2022-10-22 16:27:00 162.6 cm [facility] Body weight 2022-10-22 16:27:00 50.803 kg [facility] BMI 2022-10-22 16:27:00 19.22 kg/m2 [facility] Body mass index (BMI) [Percentile] Per age and sex 2022-10-22 16:27:00 19.34 % [facility] Systolic blood pressure 2022-10-09 19:09:00 110 mm[Hg] [facility] Diastolic blood pressure 2022-10-09 19:09:00 73 mm[Hg] [facility] Heart rate 2022-10-09 19:09:00 84 /[facility] Body [facility] 2022-10-09 19:09:00 37 Nikki [facility] Respiratory rate 2022-10-09 19:09:00 16 /min [facility] Body height 2022-10-09 19:09:00 162.6 cm [facility] Body weight 2022-10-09 19:09:00 50.712 kg [facility] BMI 2022-10-09 19:09:00 19.19 kg/m2 [facility] Body mass index (BMI) [Percentile] Per age and sex 2022-10-09 19:09:00 19.05 % [facility] Oxygen saturation in Arterial blood by Pulse oximetry 2022-10-09 19:09:00 99 /min [facility] Systolic blood pressure 2022-09-11 16:25:00 105 mm[Hg] [facility] Diastolic blood pressure 2022-09-11 16:25:00 69 mm[Hg] [facility] Heart rate 2022-09-11 16:25:00 111 /min [facility] Respiratory rate 2022-09-11 16:25:00 18 /min [facility] Body height 2022-09-11 16:25:00 162.6 cm [facility] Body weight 2022-09-11 16:25:00 47.628 kg [facility] BMI 2022-09-11 16:25:00 18.02 kg/m2 [facility] Body mass index (BMI) [Percentile] Per age and sex 2022-09-11 16:25:00 7.15 % [facility] Systolic blood pressure 2022-08-14 21:15:00 99 mm[Hg] [facility] Diastolic blood pressure 2022-08-14 21:15:00 63 mm[Hg] [facility] Heart rate 2022-08-14 21:15:00 72 /min [facility] Respiratory rate 2022-08-14 21:15:00 18 /min [facility] Body height 2022-08-14 21:15:00 162.6 cm [facility] Body weight 2022-08-14 21:15:00 45.36 kg [facility] BMI 2022-08-14 21:15:00 17.16 kg/m2 [facility] Body mass index (BMI) [Percentile] Per age and sex 2022-08-14 21:15:00 2.37 % [facility] Systolic blood pressure 2022-07-18 18:36:00 95 mm[Hg] [facility] Diastolic blood pressure 2022-07-18 18:36:00 59 mm[Hg] [facility] Heart rate 2022-07-18 18:36:00 114 /min [facility] Respiratory rate 2022-07-18 18:36:00 18 /min [facility] Body height 2022-07-18 18:36:00 162.6 cm [facility] Body weight 2022-07-18 18:36:00 43.999 kg [facility] BMI 2022-07-18 18:36:00 16.65 kg/m2 [facility] Body mass index (BMI) [Percentile] Per age and sex 2022-07-18 18:36:00 0.99 % [facility] Systolic blood pressure 2022-06-20 19:18:00 98 mm[Hg] [facility] Diastolic blood pressure 2022-06-20 19:18:00 66 mm[Hg] [facility] Heart rate 2022-06-20 19:18:00 95 /min [facility] Respiratory rate 2022-06-20 19:18:00 18 /min [facility] Body height 2022-06-20 19:18:00 162.6 cm [facility] Body weight 2022-06-20 19:18:00 42.638 kg [facility] BMI 2022-06-20 19:18:00 16.14 kg/m2 [facility] Body mass index (BMI) [Percentile] Per age and sex 2022-06-20 19:18:00 0.34 % [facility] Systolic blood pressure 2022-05-23 20:43:00 112 mm[Hg] [facility] Diastolic blood pressure 2022-05-23 20:43:00 67 mm[Hg] [facility] Heart rate 2022-05-23 20:43:00 92 /min [facility] Body temperature 2022-05-23 20:43:00 36.83 Nikki [facility] Respiratory rate 2022-05-23 20:43:00 16 /min [facility] Body height 2022-05-23 20:43:00 162.6 cm [facility] Body weight 2022-05-23 20:43:00 42.411 kg [facility] BMI 2022-05-23 20:43:00 16.05 kg/m2 [facility] Body mass index (BMI) [Percentile] Per age and sex 2022-05-23 20:43:00 0.28 % [facility] Oxygen saturation in Arterial blood by Pulse oximetry 2022-05-23 20:43:00 100 /min [facility] Systolic blood pressure 2021-12-01 06:53:00 104 mm[Hg] [facility] Diastolic blood pressure 2021-12-01 06:53:00 70 mm[Hg] [facility] Heart rate 2021-12-01 06:53:00 105 /min [facility] Respiratory rate 2021-12-01 06:53:00 20 /min [facility] Oxygen saturation in Arterial blood by Pulse oximetry 2021-12-01 06:53:00 98 /min [facility] Body temperature 2021-12-01 02:00:00 37.56 Nikki [facility] Body height 2021-12-01 00:52:00 162.6 cm [facility] Body weight 2021-12-01 00:52:00 43.092 kg [facility] BMI 2021-12-01 00:52:00 16.31 kg/m2 [facility] Body mass index (BMI) [Percentile] Per age and sex 2021-12-01 00:52:00 0.68 % [facility] Systolic blood pressure 2021-04-24 06:17:00 130 mm[Hg] [facility] Diastolic blood pressure 2021-04-24 06:17:00 70 mm[Hg] [facility] Heart rate 2021-04-24 06:17:00 93 /min [facility] Body temperature 2021-04-24 06:17:00 36.67 Nikki [facility] Respiratory rate 2021-04-24 06:17:00 18 /min [facility] Body height 2021-04-24 06:17:00 165.1 cm [facility] Body weight 2021-04-24 06:17:00 43.092 kg [facility] BMI 2021-04-24 06:17:00 15.81 kg/m2 [facility] Body mass index (BMI) [Percentile] Per age and sex 2021-04-24 06:17:00 0.34 % [facility] Oxygen saturation in Arterial blood by Pulse oximetry 2021-04-24 06:17:00 99 /min [facility] Systolic blood pressure 2019-06-28 20:11:00 111 mm[Hg] [facility] Diastolic blood pressure 2019-06-28 20:11:00 72 mm[Hg] [facility] Heart rate 2019-06-28 20:11:00 82 /min [facility] Respiratory rate 2019-06-28 20:11:00 14 /min [facility] Oxygen saturation in Arterial blood by Pulse oximetry 2019-06-28 20:11:00 98 /min [facility] Body temperature 2019-06-28 18:38:00 36.89 Nikki [facility] Body weight 2019-06-28 18:38:00 46.811 kg [facility] Procedures Procedure Date / Time Performed Performing Clinician Source CONSENT FOR CONTRACEPTION 2023-02-09 05:01:00 Doctor Unassigned, [place] [facility] POCT TEST 2023-02-09 00:00:00 Jania Fernandez [facility] CBC WITH DIFF 2022-12-30 09:04:00 Bibi Alcaraz [facility] POCT GLUCOSE (AUTOMATED) 2022-12-29 19:21:00 Are Kennedi Carlson [facility] POCT GLUCOSE (AUTOMATED) 2022-12-29 16:40:00 Are Kennedi Carlson [facility] CENTRAL NEURAXIAL BLOCK 2022-12-29 16:11:00 Tesfaye Leonardo [facility] POCT GLUCOSE (AUTOMATED) 2022-12-29 13:12:00 Are Kennedi Carlson [facility] CBC WITH DIFF 2022-12-29 10:23:00 Dianne Beavers [facility] HEPATITIS B SURFACE ANTIGEN 2022-12-29 10:23:00 Dianne Beavers [facility] HB ABO GROUPING 2022-12-29 10:23:00 Dianne Beavers [facility] RHO (D) IMMUNE GLOBULIN 2022-12-29 10:23:00 Geovanni Young sBibi [facility] HIV 1/2 AG-AB WITH REFLEX 2022-12-29 10:23:00 Dianne Beavers [facility] SYPHILIS IGG/IGM 2022-12-29 10:23:00 Dianne Beavers [facility] POCT GLUCOSE (AUTOMATED) 2022-12-29 08:27:00 Are Kennedi Carlson [facility] NON-STRESS TEST 2022-12-25 19:21:09 Shamir [facility] NON-STRESS TEST 2022-12-22 20:37:25 Shamir [facility] PATIENT QUESTIONNAIRE 2022-12-22 05:01:00 Doctor Unassigned, [place] [facility] SECOND AND THIRD TRIMESTER ULTRASOUND 2022-12-19 13:59:00 Shamir [facility] NON-STRESS TEST 2022-12-18 20:20:47 Shamir [facility] NON-STRESS TEST 2022-12-15 19:43:23 [facility] 2022-12-12 20:50:40 Umm Cervantes [facility] DSU PRE-OP 2022-12-12 05:01:00 Doctor Unass igned, [place] [facility] POCT URINALYSIS W/O SPECIFIC GRAVITY 2022-12-12 00:00:00 Umm Cervantes [facility] NON-STRESS TEST 2022-12-04 19:37:29 [facility] NON-STRESS TEST 2022-11-27 19:49:24 Shamir [facility] PATIENT QUESTIONNAIRE 2022-11-27 05:01:00 Doctor Unassigned, [place] [facility] NON-STRESS TEST 2022-11-24 21:49:08 Shamir [facility] NON-STRESS TEST 2022-11-17 19:36:10 [facility] NON-STRESS TEST 2022-11-13 20:32:23 Shamir [facility] NON-STRESS TEST 2022-11-13 20:20:35 Shamir [facility] HEMOGLOBIN A1C-Q 2022-11-06 18:15:00 Natalia Fernandez [facility] POCT URINALYSIS W/O SPECIFIC GRAVITY 2022-11-05 00:00:00 Shamir [facility] POCT URINALYSIS W/O SPECIFIC GRAVITY 2022-10-22 00:00:00 Shamir [facility] POCT URINALYSIS W/O SPECIFIC GRAVITY 2022-10-09 00:00:00 Shamir [facility] POCT URINALYSIS W/O SPECIFIC GRAVITY 2022-09-11 00:00:00 Shamir [facility] POCT URINALYSIS W/O SPECIFIC GRAVITY 2022-08-14 00:00:00 Shamir [facility] DME/SUPPLY JUSTIFICATION 2022-07-31 05:01:00 Doc tor Unassigned, [place] [facility] POCT URINALYSIS W/O SPECIFIC GRAVITY 2022-07-18 00:00:00 Amol Fernandez [facility] SCANNED LAB RESULTS 2022-06-27 06:01:00 Doctor Lona burt, [place] [facility] POCT URINALYSIS W/O SPECIFIC GRAVITY 2022-06-20 00:00:00 Amol Fernandez [facility] CBC WITH DIFF 2022-06-06 17:05:00 Amol Fernandez [facility] HB ABO GROUPING 2022-06-06 17:05:00 Cruz Fernandez [facility] HIV 1/2 AG-AB WITH REFLEX 2022-06-06 17:05:00 Amol Fernandez [facility] URINE DRUG (IMMUNOASSAY) - COMPREHENSIVE DRUG SCREEN 2022-06-06 16:58:00 Amol Fernandez [facility] US FIRST TRIMESTER LESS THAN 14 WEEKS WITH TRANSVAGINAL 2022-05-30 20:47:57 Amol Fernandez [facility] CONSENT/REFUSAL FOR DIAGNOSIS AND TREATMENT 2022-05-30 19:24:57 Doctor Unassigned, [place] [facility] ASSIGNMENT OF BENEFITS 2022-05-23 20:18:03 Docto r Unassigned, [place] [facility] POCT TEST 2022-05-23 00:00:00 Jania Fernandez [facility] POCT URINALYSIS W/O SPECIFIC GRAVITY 2022-05-23 00:00:00 Amol Fernandez [facility] CT ABDOMEN PELVIS W CONTRAST 2021-12-01 02:53:36 Chris Pinto [facility] COVID-19 (ID NOW RAPID TESTING) 2021-12-01 02:34:00 Chris Pinto [facility] XR CHEST 1 VW 2021-12-01 01:47:00 Chris Pinto [facility] D-DIMER 2021-12-01 01:29:00 Chris Pinto [facility] LACTIC ACID WHOLE BLOOD 2021-12-01 01:15:00 Chris Hill [facility] POCT TEST 2021-12-01 01:11:00 Chris Salazar [facility] BLOOD CULTURE SCREEN 2021-12-01 01:10:00 Chris Hinson [facility] LIPASE 2021-12-01 01:10:00 Chris Pinto [facility] COMP. METABOLIC PANEL ([id number]) 2021-12-01 01:10:00 Chris Pinto [facility] CBC WITH DIFF 2021-12-01 01:10:00 Chris Pinto [facility] URINALYSIS 2021-12-01 01:10:00 Chris Pinto [facility] NOTICE OF PRIVACY PRACTICES 2021-12-01 00:41:40 Doctor Unassigned, [place] [facility] CONSENT/REFUSAL FOR DIAGNOSIS AND TREATMENT 2021-12-01 00:41:04 Doctor Unassigned, [place] [facility] CONSENT/REFUSAL FOR DIAGNOSIS AND TREATMENT 2021-04-24 06:05:14 Doctor Unassigned, [place] [facility] NOTICE OF PRIVACY PRACTICES 2021-04-24 06:05:01 Doctor Unassigned, [place] [facility] REFERRAL- REQUEST/RESPONSE 2020-12-28 05:01:00 Doctor Unassigned, [place] [facility] URINALYSIS 2019-06-28 19:02:00 Risa Mccormick [facility] POCT TEST 2019-06-28 19:02:00 Monica Mccormick [facility] NOTICE OF PRIVACY PRACTICES 2019-06-28 18:29:54 Doctor Unassigned, [place] [facility] CONSENT/REFUSAL FOR DIAGNOSIS AND TREATMENT 2019-06-28 18:29:32 Doctor Unassigned, [place] [facility] Encounters Start Date/Time End Date/Time Encounter Type Admission Type Attending [facility] Care Facility Care Department Encounter ID Source 2021-02-21 12:16:07 Emergency [facility] [id number] [facility] 2023-03-03 09:30:00 2023-03-03 09:30:00 Outpatient R CLOUDJIMBO GHAZAL Vallecillo MAYITO GHAZAL Vallecillo [facility] [id number] [facility] 2023-02-19 00:00:00 2023-02-19 00:00:00 [facility] 1.2840.114 350.1.13.10 4.2.7.2.686 [id number] 134 [id number] [facility] 2023-02-18 00:00:00 2023-02-18 00:00:00 [facility] 1.20.114 350.1.13.10 4.2.7.2.686 [id number] 134 [id number] [facility] 2023-02-09 11:15:00 2023-02-09 11:36:38 [facility] [id number] [facility] 2023-02-09 11:15:00 2023-02-09 11:36:[address] [facility] 1.20.114 350.1.13.10 4.2.7.2.686 [id number] [facility] 2023-02-09 00:00:00 2023-02-09 00:00:00 Orders Only Doctor Unassigned, [place] [facility] 1.2840.114 350.1.13.10 4.2.7.2.686 [id number] [facility] 2023-01-29 00:00:00 2023-01-29 00:00:00 Patient Secure Msg [facility] 1.2.840.114 350.1.13.10 4.2.7.2.686 [id number] [facility] 2023-01-27 16:00:00 2023-01-27 16:00:00 Outpatient R AMOL FERNANDEZ CHERYAL [facility] [id number] [facility] 2023-01-27 00:00:00 2023-01-27 00:00:00 Patient Secure g Amol Fernandez [facility] 1.2.840.114 350.1.13.10 4.2.7.2.686 [id number] 134 [id number] [facility] 2023-01-20 00:00:00 2023-01-20 00:00:00 Patient Secure [facility] 1.2.840.114 350.1.13.10 4.2.7.2.686 [id number] 134 [id number] [facility] 2023-01-19 10:00:00 2023-01-19 10:25:52 Out[facility] [id number] [facility] 2023-01-19 10:00:00 2023-01-19 10:25:52 Routine Visit Amol Fernandez [facility] 1.2.840.114 350.1.13.10 4.2.7.2.686 [id number] [facility] 2023-01-01 14:00:00 2023-01-01 14:00:00 Outpatient R [facility] [id number] [facility] 2022-12-29 03:14:00 2022-12-31 15:03:00 Inpatient KENNEDI GRAY [facility] SARAH [id number] [facility] 2022-12-29 03:14:00 2022-12-31 15:03:00 Hospital Encounter Barrington DurhamvolodymyrHudsone [facility] 1.2.840.114 350.1.13.10 4.2.7.2.686 [id number] [facility] 2022-12-30 14:00:00 2022-12-30 14:00:00 Outpatient R [facility] [id number] [facility] 2022-12-30 00:00:00 2022-12-30 00:00:00 Patient Secure Msg Elidatieshafield Shanell W [facility] 1.2.840.114 350.1.13.10 4.2.7.2.686 [id number] [facility] 2022-12-29 10:30:00 2022-12-29 16:47:00 Anesthesia Event Alban Leonardo Ryan C S [facility] 1.2.840.114 350.1.13.10 4.2.7.2.686 [id number] [facility] 2022-12-29 00:00:00 2022-12-29 00:00:00 Patient Secure Msg Doctor Unassigned, [place] [facility] 1.2.840.114 350.1.13.10 4.2.7.2.686 [id number] 134 [id number] [facility] 2022-12-25 14:00:00 2022-12-25 14:15:00 Routine Visit 1, [facility] 1.2.840.114 350.1.13.10 4.2.7.2.686 [id number] [facility] 2022-12-25 14:00:00 2022-12-25 14:00:00 Outpatient R [facility] [id number] [facility] 2022-12-22 14:00:00 2022-12-22 15:07:50 Outpatient R [facility]OL [facility] [id number] [facility] 2022-12-22 14:00:00 2022-12-22 15:07:50 Routine Visit 1, Lkj Nst Room Shamir [facility] 1.2.840.114 350.1.13.10 4.2.7.2.686 [id number] [facility] 2022-12-22 00:00:00 2022-12-22 00:00:00 Telephone Shamir [facility] 1.2.840.114 350.1.13.10 4.2.7.2.686 [id number] [facility] 2022-12-22 00:00:00 2022-12-22 00:00:00 Orders Only Doctor Unassigned, [place] [facility] 1.2.840.114 350.1.13.10 4.2.7.2.686 [id number] [facility] 2022-12-22 00:00:00 2022-12-22 00:00:00 Patient Secure MsMonique Hernández [facility] CURTAIN STITCHER [facility] 1.2.840.114 350.1.13.10 4.2.7.2.686 [id number] [facility] 2022-12-21 00:00:00 2022-12-21 00:00:00 Case Management [facility] 1.2.840.114 350.1.13.10 4.2.7.2.686 [id number] [facility] 2022-12-19 09:00:00 2022-12-19 09:04:18 Outpatient P BORIS WASHINGTON [facility] [id number] [facility] 2022-12-19 09:00:00 2022-12-19 09:04:18 Student Outreach Coordinator Visit 1, Jayjay Room Boris Washington [facility] CURTAIN STITCHER [facility] 1.2.840.114 350.1.13.10 4.2.7.2.686 [id number] [facility] [id number] [facility] 2022-12-18 14:00:00 2022-12-18 14:33:16 Outpatient R AMOL FERNANDEZ CHERJAZZ [facility] [id number] [facility] 2022-12-18 14:00:00 2022-12-18 14:33:16 Routine Visit 1, [facility] 1..840.114 350.1.13.10 4.2.7.2.686 [id number] [facility] 2022-12-16 14:00:00 2022-12-16 14:00:00 Outpatient R [facility] [id number] [facility] 2022-12-15 14:00:00 2022-12-15 14:33:58 Outpatient R AMOL FERNANDEZ AMOL [facility] [id number] [facility] 2022-12-15 14:00:00 2022-12-15 14:33:58 Routine Visit 1, [facility] 1..840.114 350.1.13.10 4.2.7.2.686 [id number] [facility] 2022-12-12 14:00:00 2022-12-12 15:33:22 Outpatient R UMM CERVANTES [facility] [id number] [facility] 2022-12-12 14:00:00 2022-12-12 15:33:22 Routine Visit 1, [facility] Room Umm Cervantes [facility] 1.840.114 350.1.13.10 4.2.7.2.686 [id number] [facility] 2022-12-12 00:00:00 2022-12-12 00:00:00 Orders Only Doctor Unassigned, [place] [facility] 1.2.840.114 350.1.13.10 4.2.7.2.686 [id number] [facility] 2022-12-09 00:00:00 2022-12-09 00:00:00 Patient Secure Monique Toure [facility] CURTAIN STITCHER [facility] 1.2.840.114 350.1.13.10 4.2.7.2.686 [id number] [facility] 2022-12-08 14:00:00 2022-12-08 14:00:00 Outpatient R HELEN UMM [facility] [id number] [facility] 2022-12-08 00:00:00 2022-12-08 00:00:00 Telephone Umm Cervantes [facility] 1.2840.114 350.1.13.10 4.2.7.2.686 [id number] 134 [id number] [facility] 2022-12-04 14:00:00 2022-12-04 14:15:00 Routine [facility] 1, [facility] 1.840.114 350.1.13.10 4.2.7.2.686 [id number] 134 [id number] [facility] 2022-12-04 14:00:00 2022-12-04 14:00:00 Outpatient R AMOL [facility] [id number] [facility] 2022-12-01 14:00:00 2022-12-01 14:00:00 Outpatient R [facility] [id number] [facility] 2022-11-27 14:00:00 2022-11-27 14:23:29 Outpatient R AMOL FERNANDEZ CHERYAL [facility] [id number] [facility] 2022-11-27 14:00:00 2022-11-27 14:23:29 Routine Visit 1, [facility] 1.114 350.1.13.10 4.2.7.2.686 [id number] [facility] 2022-11-27 00:00:00 2022-11-27 00:00:00 Orders Only Doctor Unassigned, [place] [facility] 1.114 350.1.13.10 4.2.7.2.686 [id number] [facility] 2022-11-24 16:00:00 2022-11-24 16:48:31 Outpatient R [facility] [id number] [facility] 2022-11-24 16:00:00 2022-11-24 16:48:31 Routine Visit 1, [facility] 1.114 350.1.13.10 4.2.7.2.686 [id number] [facility] 2022-11-21 14:00:00 2022-11-21 15:19:59 Outpatient P DARIELA FELTON [facility] [id number] [facility] 2022-11-21 14:00:00 2022-11-21 15:19:59 Telemedici ne Visit Fellow, [facility] Dariela Felton [facility] 1.114 350.1.13.10 4.2.7.2.686 [id number] [facility] 2022-11-20 14:00:00 2022-11-20 14:00:00 Outpatient R [facility] [id number] [facility] 2022-11-20 14:00:00 2022-11-20 14:00:00 Outpatient R [facility] [id number] [facility] 2022-11-17 13:00:00 2022-11-17 14:51:25 Outpatient R CLOUD-THERESA S, GHAZAL CLOUD-THERESA S, GHAZAL [facility] [id number] [facility] 2022-11-17 13:00:00 2022-11-17 14:51:25 Routine Visit Room, [facility] Rabia-Theresa sAllynGhazal [facility] 1..840.114 350.1.13.10 4.2.7.2.686 [id number] [facility] 2022-11-17 14:00:00 2022-11-17 14:00:00 Outpatient R [facility] [id number] [facility] 2022-11-14 00:00:00 2022-11-14 00:00:00 Patient Secure [facility] 1..840.114 350.1.13.10 4.2.7.2.686 [id number] 134 [id number] [facility] 2022-11-13 14:00:00 2022-11-13 15:01:39 Outpatient R AMOL FERNANDEZ CHERYAL [facility] [id number] [facility] 2022-11-13 14:00:00 2022-11-13 15:01:39 Routine Visit 1, [facility]ir [facility] 1.2.840.114 350.1.13.10 4.2.7.2.686 [id number] 134 [id number] [facility] 2022-11-13 00:00:00 2022-11-13 00:00:00 Case Management Shamir [facility] 1.2.840.114 350.1.13.10 4.2.7.2.686 [id number] 134 [id number] [facility] 2022-11-12 00:00:00 2022-11-12 00:00:00 [facility] 1.2.840.114 350.1.13.10 4.2.7.2.686 [id number] 134 [id number] [facility] 2022-11-07 00:00:00 2022-11-07 00:00:00 Patient Secure Msg [facility] 1.2.840.114 350.1.13.10 4.2.7.2.686 [id number] 134 [id number] [facility] 2022-11-06 00:00:00 2022-11-06 00:00:00 [facility] 1.2.840.114 350.1.13.10 4.2.7.2.686 [id number] [facility] 2022-11-05 16:00:00 2022-11-05 16:41:55 Outpatient R [facility] [id number] [facility] 2022-11-05 16:00:00 2022-11-05 16:41:55 Routine Visit [facility] 1.2.840.114 350.1.13.10 4.2.7.2.686 [id number] 134 [id number] [facility] 2022-10-31 13:30:00 2022-10-31 13:45:00 Nurse Visit Nurse, [facility] Amol Fernandez [facility] 1.2.840.114 350.1.13.10 4.2.7.2.686 [id number] 134 [id number] [facility] 2022-10-31 13:30:00 2022-10-31 13:30:00 Outpatient R [facility]Z [facility] [id number] [facility] 2022-10-23 08:45:00 2022-10-23 08:55:57 Student Outreach Coordinator Visit 2, [facility] Ronal Mena [facility] 1.2840.114 350.1.13.10 4.2.7.2.686 [id number] [facility] [id number] [facility] 2022-10-23 08:45:00 2022-10-23 08:45:00 Outpatient P RONAL MENA COREY [facility] [id number] [facility] 2022-10-23 00:00:00 2022-10-23 00:00:00 Case Management [facility] HealthAmol powers [facility] 1.20.114 350.1.13.10 4.2.7.2.686 [id number] 134 [id number] [facility] 2022-10-22 11:15:00 2022-10-22 12:13:15 Outpatient R AMOL [facility]DEZ [facility] [id number] [facility] 2022-10-22 11:15:00 2022-10-22 12:13:15 Routine Visit [facility] HealthAmol powers [facility] 1.20.114 350.1.13.10 4.2.7.2.686 [id number] 134 [id number] [facility] 2022-10-21 00:00:00 2022-10-21 00:00:00 Patient Secure Msg Mojganjoseph [facility] 1.2.840.114 350.1.13.10 4.2.7.2.686 [id number] 134 [id number] [facility] 2022-10-20 00:00:00 2022-10-20 00:00:00 Telephone [facility]алек[facility]андрj[facility] 1.2.840.114 350.1.13.10 4.2.7.2.686 [id number] 134 [id number] [facility] 2022-10-20 00:00:00 2022-10-20 00:00:00 [facility]phone [facility] 1.2.840.114 350.1.13.10 4.2.7.2.686 [id number] 134 [id number] [facility] 2022-10-20 00:00:00 2022-10-20 00:00:00 Refill Shamir [facility] 1.2.840.114 350.1.13.10 4.2.7.2.686 [id number] 134 [id number] [facility] 2022-10-17 07:30:00 2022-10-17 07:45:00 Student Outreach Coordinator Visit Lab, Frank - Gentry Fernandez [facility] 1.2.840.114 350.1.13.10 4.2.7.2.686 [id number] [facility] 2022-10-17 07:30:00 2022-10-17 07:30:00 Outpatient R AMOL [facility]NANDEZ [facility] [id number] [facility] 2022-10-17 00:00:00 2022-10-17 00:00:00 Patient Secure Msg Amol Fernandez [facility] 1.2.840.114 350.1.13.10 4.2.7.2.686 [id number] 134 [id number] [facility] 2022-10-09 14:00:00 2022-10-09 14:26:44 Outpatient R [facility]NDEZ [facility] [id number] [facility] 2022-10-09 14:00:00 2022-10-09 14:26:44 Routine Visit [facility] 1.2.840.114 350.1.13.10 4.2.7.2.686 [id number] [facility] 2022-10-09 14:00:00 2022-10-09 14:00:00 Outpatient R MARISELAAMOL POWERS MARISELAGIO [facility] [id number] [facility] 2022-10-09 00:00:00 2022-10-09 00:00:00 Telephone [facility] 1.2.840.114 350.1.13.10 4.2.7.2.686 [id number] 134 [id number] [facility] 2022-10-07 00:00:00 2022-10-07 00:00:00 Patient Secure Msg [facility] 1.2.840.114 350.1.13.10 4.2.7.2.686 [id number] 134 [id number] [facility] 2022-10-04 00:00:00 2022-10-04 00:00:00 Telephone Amol Fernandez [facility] 1.2.840.114 350.1.13.10 4.2.7.2.686 [id number] 134 [id number] [facility] 2022-10-03 09:00:00 2022-10-03 09:15:00 Student Outreach Coordinator Visit Lab, Frank Fernandez [facility] 1.2840.114 350.1.13.10 4.2.7.2.686 [id number] [facility] 2022-10-03 09:00:00 2022-10-03 09:00:00 Outpatient R AMOL FERNANDEZ [facility] [id number] [facility] 2022-09-23 00:00:00 2022-09-23 00:00:00 Telephone Pauly Jacinto [facility] 1.0.114 350.1.13.10 4.2.7.2.686 [id number] 134 [id number] [facility] 2022-09-22 00:00:00 2022-09-22 00:00:00 Patient Secure Msg Monique Fagan [facility] 1.0.114 350.1.13.10 4.2.7.2.686 [id number] [facility] 2022-09-22 00:00:00 2022-09-22 00:00:00 Patient Secure Msg Shamir [facility] 1.20.114 350.1.13.10 4.2.7.2.686 [id number] 134 [id number] [facility] 2022-09-14 00:00:00 2022-09-14 00:00:00 Case Management Shamir [facility] 1.2840.114 350.1.13.10 4.2.7.2.686 [id number] 134 [id number] [facility] 2022-09-11 13:00:00 2022-09-11 14:00:00 Student Outreach Coordinator Visit Ultrasound, Frank-Katina AntonioAmol powers Chasey Ikuvbogie [facility] 1.84.114 350.1.13.10 4.2.7.2.686 [id number] [facility] 2022-09-11 13:00:00 2022-09-11 13:46:27 Outpatient P ODALYSPEDROJOSE [facility] [id number] [facility] 2022-09-11 11:00:00 2022-09-11 11:40:44 Routine Visit Shamir Melissajazz [facility] 1..114 350.1.13.10 4.2.7.2.686 [id number] 134 [id number] [facility] 2022-08-15 14:30:00 2022-08-15 14:30:00 Outpatient P [facility] [id number] [facility] 2022-08-14 16:30:00 2022-08-14 16:30:54 Outpatient R MARISELAАЛЕКСАНДРPAULINEAMOL CHESTER ELLIEHENRIK [facility] [id number] [facility] 2022-08-14 16:30:00 2022-08-14 16:30:54 Routine Visit [facility] 1..114 350.1.13.10 4.2.7.2.686 [id number] 134 [id number] [facility] 2022-08-04 00:00:00 2022-08-04 00:00:00 Telephone [facility] 1..114 350.1.13.10 4.2.7.2.686 [id number] 134 [id number] [facility] 2022-07-31 00:00:00 2022-07-31 00:00:00 Orders Only Doctor Unassigned, [place] [facility] 1.0.114 350.1.13.10 4.2.7.2.686 [id number] [id number] [facility] 2022-07-28 00:00:00 2022-07-28 00:00:00 Patient Secure Msg Amol Fernandez [facility] 1.840.114 350.1.13.10 4.2.7.2.686 [id number] 134 [id number] [facility] 2022-07-27 00:00:00 2022-07-27 00:00:00 Patient Secure Msg Doctor Unassigned, [place] [facility] 1.2840.114 350.1.13.10 4.2.7.2.686 [id number] [facility] 2022-07-25 14:00:00 2022-07-25 14:15:00 Student Outreach Coordinator Visit Lab, Amol Cochran [facility] 1.2.840.114 350.1.13.10 4.2.7.2.686 [id number] [facility] 2022-07-25 14:00:00 2022-07-25 14:00:00 Outpatient R AMOL [facility]NANDEZ [facility] [id number] [facility] 2022-07-18 13:30:00 2022-07-18 13:53:51 Routine Visit Amol Fernandez [facility] 1.2840.114 350.1.13.10 4.2.7.2.686 [id number] 134 [id number] [facility] 2022-07-18 13:30:00 2022-07-18 13:53:51 Outpatient R [facility]OL [facility]NDEZ [facility] [id number] [facility] 2022-07-10 00:00:00 2022-07-10 00:00:00 Telephone Mariselagio [facility] 1.2.840.114 350.1.13.10 4.2.7.2.686 [id number] 134 [id number] [facility] 2022-07-08 00:00:00 2022-07-08 00:00:00 Patient Secure g Marieslagio [facility] 1.2.840.114 350.1.13.10 4.2.7.2.686 [id number] 134 [id number] [facility] 2022-07-08 00:00:00 2022-07-08 00:00:00 Telephone Pauly Jacinto [facility] 1.2.840.114 350.1.13.10 4.2.7.2.686 [id number] 134 [id number] [facility] 2022-06-27 11:00:00 2022-06-27 11:15:00 Student Outreach Coordinator Visit Lab, Frank - Gentry Fernandez [facility]?JJ [facility] 1.2840.114 350.1.13.10 4.2.7.2.686 [id number] [facility] 2022-06-27 11:00:00 2022-06-27 11:00:00 Outpatient R AMOL [facility]DEZ [facility] [id number] [facility] 2022-06-27 00:00:00 2022-06-27 00:00:00 Orders Only Doctor Unassigned, [place] [facility] 1.2.840.114 350.1.13.10 4.2.7.2.686 [id number] [facility] 2022-06-27 00:00:00 2022-06-27 00:00:00 Telephone Shamir [facility] 1.2.840.114 350.1.13.10 4.2.7.2.686 [id number] [facility] 2022-06-23 00:00:00 2022-06-23 00:00:00 [facility] 1.2.840.114 350.1.13.10 4.2.7.2.686 [id number] 134 [id number] [facility] 2022-06-21 00:00:00 2022-06-21 00:00:00 Telephone [facility] 1.2.840.114 350.1.13.10 4.2.7.2.686 [id number] 134 [id number] [facility] 2022-06-20 13:30:00 2022-06-20 13:44:00 Outpatient R AMOL [facility]ERNANDEZ [facility] [id number] [facility] 2022-06-20 13:30:00 2022-06-20 13:44:00 Routine Visit [facility] 1.2.840.114 350.1.13.10 4.2.7.2.686 [id number] 134 [id number] [facility] 2022-06-06 10:30:00 2022-06-06 11:17:55 Student Outreach Coordinator Visit Lab, Frank - Gentry Fernandez [facility]?JJ [facility] 1.2.840.114 350.1.13.10 4.2.7.2.686 [id number] [facility] 2022-06-06 10:30:00 2022-06-06 10:30:00 Outpatient R AMOL F[facility]NANDEZ [facility]ДРFOSTOR[facility]ITAL[facility]ENRIK[facility] [id number] [facility] 2022-06-05 00:00:00 2022-06-05 00:00:00 Telephone [place] Healthtschler, Cheryal [facility] 1.2.840.114 350.1.13.10 4.2.7.2.686 [id number] 134 [id number] [facility] 2022-06-02 00:00:00 2022-06-02 00:00:00 Case Management Amol Fernandez [facility] 1.2.840.114 350.1.13.10 4.2.7.2.686 [id number] 134 [id number] [facility] 2022-05-30 13:24:52 2022-05-30 23:59:00 Outpatient R AMOL FERNANDEZ CHERYAL [facility] [id number] [facility] 2022-05-30 13:24:52 2022-05-30 23:59:00 Hospital Encounter Amol Fernandez [facility] 1.2.840.114 350.1.13.10 4.2.7.2.686 [id number] [facility] 2022-05-23 14:30:00 2022-05-23 15:13:07 Outpatient R AMOL FERNANDEZ CHERYAL [facility] [id number] [facility] 2022-05-23 14:30:00 2022-05-23 15:13:07 Initial Visit Amol Fernandez [facility] 1.2.840.114 350.1.13.10 4.2.7.2.686 [id number] [facility] 2022-05-23 00:00:00 2022-05-23 00:00:00 Orders Only Doctor Unassigned, [place] [facility] 1.2.840.114 350.1.13.10 4.2.7.2.686 [id number] [facility] 2021-11-30 19:47:00 2021-12-01 01:55:00 Emergency X JETT LABOY [facility] ERT [id number] [facility] 2021-11-30 19:47:00 2021-12-01 01:55:00 Emergency Chris Pinto [place] S [facility] 1.2.840.114 350.1.13.10 4.2.7.2.686 [id number] [facility] 2021-04-24 00:20:00 2021-04-24 01:17:00 Emergency Devonte GARZA TYRONE [facility] ERT [id number] [facility] 2021-04-24 00:20:00 2021-04-24 01:17:00 Emergency Tyrone Garza [facility] 1.2.840.114 350.1.13.10 4.2.7.2.686 [id number] [facility] 2021-03-12 00:00:00 2021-03-12 00:00:00 Letter (Out) Shanell Gutierrez [facility] 1.2.840.114 350.1.13.10 4.2.7.2.686 [id number] [facility] 2020-12-28 00:00:00 2020-12-28 00:00:00 Orders Only Doctor Unassigned, [place] [facility] 1.2.840.114 350.1.13.10 4.2.7.2.686 [id number] [facility] 2020-06-05 09:15:00 2020-06-05 09:15:00 Outpatient MONIQUE GORDON [facility] [id number] [facility] 2019-06-28 12:42:44 2019-06-28 14:19:00 Emergency Risa Mccormick [facility] 1.2.840.114 350.1.13.10 4.2.7.2.686 [id number] [facility] 2019-06-28 00:00:00 2019-06-28 00:00:00 Orders Only Doctor Unassigned, [place] [facility] 1.2.840.114 350.1.13.10 4.2.7.2.686 [id number] [facility] 2012-05-19 00:00:00 2012-05-19 10:03:18 Outpatient [facility] [id number] [facility] 2012-01-21 00:00:00 2012-01-21 09:57:34 Outpatient [facility] [id number] [facility] 2011-07-23 00:00:00 2011-07-23 09:23:19 Outpatient [facility] [id number] [facility] 2011-05-26 00:00:00 2011-05-26 09:21:19 Outpatient [facility] [id number] [facility] 2011-03-31 00:00:00 2011-03-31 09:18:51 Outpatient [facility] [id number] [facility] 2010-12-02 00:00:00 2010-12-02 13:47:58 Outpatient [facility] [id number] [facility] 2010-10-02 00:00:00 2010-10-02 13:51:27 Outpatient [facility] [id number] [facility] Results Test Description Test Time Test Comments Results Result Co mments Source [facility] IMMUNE [id number] 22:11:16* Test Item Value Reference Range Interpretation Comme nts RHIG CANDIDATE? (test code = 5188) No- see comment Patient is not a candidate for RhIg- Patient is Rh Positive.Performed at [facility] Laboratory Services - [facility] Blood [address] [place] [address]Yevl Free: [phone] No. [id number] [facility] ClinicsGALV ONLY - SYPHILIS IGG/[id number] 20:18:41* Test Item Value Reference Range Interpretation Comme nts Syphilis IgG/IgM (test code = 10892-6) Non-reactive Non-reactive KAVYA (test code = KAVYA) Non-reactive - No serologic evidence of T. pallidum infection. Cannot exclude incubating or early syphilis. Submit a second specimen in 2-4 weeks if syphilis is clinically suspected. Equivocal - Further testing to follow. Reactive - Further testing to follow. Lab Interpretation (test code = 11853-1) Normal [facility] GLUCOSE (AUTOMATED)2022-12-29 19:22:13* Test Item Value Reference Range Interpretation Comme nts POCT GLU (test code = 4199733441) 102 mg/dL 70-110 Lab Interpretation (test cod e = 94327-5) Normal [facility] GLUCOSE (AUTOMATED)2022-12-29 16:41:12* Test Item Value Reference Range Interpretation Comme nts POCT GLU (test code = 4840786248) 113 mg/dL 70-110 H Lab Interpretation (test cod e = 26105-7) Abnormal [facility]icsHepatitis B Surface [id number] 14:00:44 * Test Item Value Reference Range Interpretation Comme nts HBsAg Semi-Quantitative (leslee t code = 5195-3) 0.24 Negative [facility] GLUCOSE (AUTOMATED)2022-12-29 13:14:56* Test Item Value Reference Range Interpretation Comme nts POCT GLU (test code = 3929913736) 94 mg/dL 70-110 Lab Interpretation (test cod e = 86800-7) Normal [facility]icsHIV 1/2 AG-AB WITH [id number] 12:22:42* Test Item Value Reference Range Interpretation Comme nts HIV Semi-quantitative (test code = 05929-0) 0.11 Negative KAVYA (test code = KAVYA) Non-reactive for HIV-1 antigen and HIV-1/HIV-2 antibodies. ?No laboratory evidence of HIV infection. ?Repeat in 2-4 weeks if acute HIV infection is suspected. [facility] with [id number] 11:43:48* Test Item Value Reference Range Interpretation Comme nts WBC (test code = 6690-2) 20.30 See_Comment H [Automated message] The system which generated this result transmitted reference range: 4.30 - 11.10 10*3/?L. The reference range was not used to interpret this result as normal/abnormal. RBC (test code = 789-8) 3.55 See_Comment L [Automated message] The system which generated this result transmitted reference range: 3.93 - 5.25 10*6/?L. The reference range was not used to interpret this result as normal/abnormal. HGB (test code = 718-7) 10.1 g/dL 11.6-15.0 L HCT (test code = 4544-3) 30.7 % 35.7-45.2 L MCV (test code = 787-2) 86.5 fL 80.6-95.5 MCH (test code = 785-6) 28.5 pg 25.9-32.8 MCHC (test code = 786-4) 32.9 g/dL 31.6-35.1 RDW-SD (test code = 64065-8) 41.7 fL 39.0-49.9 RDW-CV (test code = 788-0) 13.3 % 12.0-15.5 PLT (test code = 777-3) 357 See_Comment [Automated message] The system which generated this result transmitted reference range: 166 - 358 10*3/?L. The reference range was not used to interpret this result as normal/abnormal. MPV (test code = 62521-2) 9.2 fL 9.5-12.9 L NRBC/100 WBC (test code = 5033192658) 0.0 See_Comment [Automated message] The system which generated this result transmitted reference range: 0.0 - 10.0 /100 WBCs. The reference range was not used to interpret this result as normal/abnormal. NRBC x10^3 (test code = 6142431874) See_Comment [Automated message] The system which generated this result transmitted reference range: 10*3/?L. The reference range was not used to interpret this result as normal/abnormal. GRAN MAT (NEUT) % (test code = 770-8) 74.4 % IMM GRAN % (test code = 5972698795) 1.00 % LYMPH % (test code = 736-9) 12.7 % MONO % (test code = 5905-5) 11.2 % EOS % (test code = 713-8) 0.4 % BASO % (test code = 706-2) 0.3 % GRAN MAT x10^3(ANC) (test code = 5872761301) 15.10 10*3/uL 1.88-7.09 H IMM GRAN x10^3 (test code = 2317678561) 0.20 10*3/uL 0.00-0.06 H LYMPH x10^3 (test code = 731-0) 2.58 10*3/uL 1.32-3.29 MONO x10^3 (test code = 742-7) 2.28 10*3/uL 0.33-0.92 H EOS x10^3 (test code = 711-2) 0.08 10*3/uL 0.03-0.39 BASO x10^3 (test code = 704-7) 0.06 10*3/uL 0.01-0.07 BANDS (test code = 8699352175) Increased A Lab Interpretation (test code = 14985-9) [facility] [id number] 10:33:00 * Test Item Value Reference Range Interpretation Comme nts ABO & RH (test code = 20) O POSITIVE IAT (test code = 1185) Negative [facility] GLUCOSE (AUTOMATED)2022-12-29 08:28:25* Test Item Value Reference Range Interpretation Comme nts POCT GLU (test code = 5344722037) 116 mg/dL 70-110 H Lab Interpretation (test cod e = 85944-2) Abnormal [facility] URINALYSIS W/O SPECIFIC [id number] 19:44:00* Test Item Value Reference Range Interpretation Comme nts POCT PH U (test code = 3254) N/A 5-8 POCT U LEUK EST (test code = 3263) N/A Negative - Negative POCT U NIT (test code = 3262) N/A Negative - Negati ve POCT U PROT (test code = 3259) Negative Negative - Negat ellis POCT U GLU (test code = 3256) Negative Negative - Negati ve POCT U KETONE (test code = 3258) N/A Negative - Neg ative POCT U BLD (test code = 3257) N/A Negative - Negati ve [facility]icsHE[facility]IN [id number] 05:00:00* Test Item Value Reference Range Interpretation Comme [facility] HEMOGLOBIN A1c-Q (test code = 4548-4) 5.0 See_Comment For the purpose of screening for the presence ofdiabetes: <5.7% ? ? ? Consistent with the absence of diabetes5.7-6.4% ? ?Consistent with increased risk for diabetes ?(prediabetes)> or =6.5% ?Consistent with diabetes This assay result is consistent with a decreased riskof diabetes. Currently, no consensus exists regarding use ofhemoglobin A1c for diagnosis of diabetes in children. According to [place] [employer] (ADA)guidelines, hemoglobin A1c <7.0% represents optimalcontrol in non- diabetic patients. Differentmetrics may apply to specific patient populations. Standards of Medical Care in Diabetes(ADA). ? [Automated message] The system which generated this result transmitted reference range: <5.7 % of total Hgb. The reference range was not used to interpret this result as normal/abnormal. KAVYA (test code = KAVYA) PERFORMED BY [employer] [place]; [address] [place] [phone]; TEVIN CLARK MD,PHD. [facility]INAL[facility] W/O SPECIFIC [id number] 21:15:00* Test Item Value Reference Range Interpretation Comme nts POCT PH U (test code = 3254) n/a 5-8 POCT U LEUK EST (test code = 3263) n/a Negative - Negative POCT U NIT (test code = 3262) n/a Negative - Negati ve POCT U PROT (test code = 3259) negative Negative - Negat ellis POCT U GLU (test code = 3256) negative Negative - Negati ve POCT U KETONE (test code = 3258) n/a Negative - Neg ative POCT U BLD (test code = 3257) n/a Negative - Negati ve [facility]icsPOAR URINALYSIS W/O SPECIFIC [id number] 16:30:00* Test Item Value Reference Range Interpretation Comme nts POCT PH U (test code = 3254) N/A 5-8 POCT U LEUK EST (test code = 3263) N/A Negative - Negative POCT U NIT (test code = 3262) N/A Negative - Negati ve POCT U PROT (test code = 3259) Negative Negative - Negat ellis POCT U GLU (test code = 3256) Negative Negative - Negati ve POCT U KETONE (test code = 3258) N/A Negative - Neg ative POCT U BLD (test code = 3257) N/A Negative - Negati ve [facility] URINALYSIS W/O SPECIFIC [id number] 19:12:00* Test Item Value Reference Range Interpretation Comme nts POCT PH U (test code = 3254) n/a 5-8 POCT U LEUK EST (test code = 3263) n/a Negative - Negative POCT U NIT (test code = 3262) n/a Negative - Negati ve POCT U PROT (test code = 3259) negative Negative - Negat ellis POCT U GLU (test code = 3256) negative Negative - Negati ve POCT U KETONE (test code = 3258) n/a Negative - Neg ative POCT U BLD (test code = 3257) n/a Negative - Negati ve [facility] URINALYSIS W/O SPECIFIC [id number] 16:26:00* Test Item Value Reference Range Interpretation Comme nts POCT PH U (test code = 3254) N/A 5-8 POCT U LEUK EST (test code = 3263) N/A Negative - Negative POCT U NIT (test code = 3262) N/A Negative - Negati ve POCT U PROT (test code = 3259) Negative Negative - Negat ellis POCT U GLU (test code = 3256) Negative Negative - Negati ve POCT U KETONE (test code = 3258) N/A Negative - Neg ative POCT U BLD (test code = 3257) N/A Negative - Negati ve [facility] URINALYSIS W/O SPECIFIC [id number] 21:18:00* Test Item Value Reference Range Interpretation Comme nts POCT PH U (test code = 3254) N/A 5-8 POCT U LEUK EST (test code = 3263) N/A Negative - Negative POCT U NIT (test code = 3262) N/A Negative - Negati ve POCT U PROT (test code = 3259) Negative Negative - Negat ellis POCT U GLU (test code = 3256) Negative Negative - Negati ve POCT U KETONE (test code = 3258) N/A Negative - Neg ative POCT U BLD (test code = 3257) N/A Negative - Negati ve [facility]PO[facility] W/O SPECIFIC [id number] 18:39:00* Test Item Value Reference Range Interpretation Comme nts POCT PH U (test code = 3254) N/A 5-8 POCT U LEUK EST (test code = 3263) N/A Negative - Negative POCT U NIT (test code = 3262) N/A Negative - Negati ve POCT U PROT (test code = 3259) Negative Negative - Negat ellis POCT U GLU (test code = 3256) Negative Negative - Negati ve POCT U KETONE (test code = 3258) N/A Negative - Neg ative POCT U BLD (test code = 3257) N/A Negative - Negati ve [facility]icsPOAR URINALYSIS W/O SPECIFIC [id number] 19:22:00* Test Item Value Reference Range Interpretation Comme nts POCT PH U (test code = 3254) 7 mg/dl 5-8 POCT U LEUK EST (test code = 3263) Negative Negative - Negative POCT U NIT (test code = 3262) Negative Negative - Negati ve POCT U PROT (test code = 3259) Negative Negative - Negat ellis POCT U GLU (test code = 3256) Negative Negative - Negati ve POCT U KETONE (test code = 3258) Negative Negative - Neg ative POCT U BLD (test code = 3257) Negative Negative - Negati ve [facility]icsHIV 1/2 AG-AB WITH [id number] 21:28:07* Test Item Value Reference Range Interpretation Comme nts HIV Semi-quantitative (test code = 74645-6) 0.08 Negative KAVYA (test code = KAVYA) Non-reactive for HIV-1 antigen and HIV-1/HIV-2 antibodies. ?No laboratory evidence of HIV infection. ?Repeat in 2-4 weeks if acute HIV infection is suspected. [facility] ClinicsPRENATAL WORKUP, BLOOD [id number] 20:22:35 * Test Item Value Reference Range Interpretation Comme nts ABO & RH (test code = 20) O Positive Performed at [facility] Laboratory [facility] Blood [address] [place], [place] [address]Toll Free: [phone] No. [id number] IAT (test code = 1185) Negative Performed at [facility] Laboratory [facility] Blood [address] [place], [place] [address]Toll Free: [phone] No. [id number] [facility] ClinicsCBC WITH [id number] 19:59:49* Test Item Value Reference Range Interpretation Comme nts WBC (test code = 6690-2) 9.79 See_Comment [Automated messa ge] The system which generated this result transmitted reference range: 4.50 - 13.50 10*3/?L. The reference range was not used to interpret this result as normal/abnormal. RBC (test code = 789-8) 4.14 See_Comment [Automated messa ge] The system which generated this result transmitted reference range: 4.10 - 5.10 10*6/?L. The reference range was not used to interpret this result as normal/abnormal. HGB (test code = 718-7) 12.9 g/dL 12.0-16.0 HCT (test code = 4544-3) 37.3 % 36.0-45.0 MCV (test code = 787-2) 90.1 fL 78.0-95.0 MCH (test code = 785-6) 31.2 pg 26.0-32.0 MCHC (test code = 786-4) 34.6 g/dL 32.0-36.0 RDW-SD (test code = 98452-3) 38.9 fL 38.5-49.0 RDW-CV (test code = 788-0) 11.9 % 11.5-14.0 PLT (test code = 777-3) 338 See_Comment [Automated messa ge] The system which generated this result transmitted reference range: 135 - 361 10*3/?L. The reference range was not used to interpret this result as normal/abnormal. MPV (test code = 43509-4) 8.7 fL 9.4-13.3 L NRBC/100 WBC (test code = 7808144791) 0.0 See_Comment [Automated me ssage] The system which generated this result transmitted reference range: 0.0 - 10.0 /100 WBCs. The reference range was not used to interpret this result as normal/abnormal. NRBC x10^3 (test code = 6111016493) See_Comment [Automated messa ge] The system which generated this result transmitted reference range: 10*3/?L. The reference range was not used to interpret this result as normal/abnormal. GRAN MAT (NEUT) % (test code = 770-8) 69.8 % IMM GRAN % (test code = 2972683048) 0.40 % LYMPH % (test code = 736-9) 21.2 % MONO % (test code = 5905-5) 7.3 % EOS % (test code = 713-8) 0.8 % BASO % (test code = 706-2) 0.5 % GRAN MAT x10^3(ANC) (test code = 7883275454) 6.83 10*3/uL 1.50-10.30 IMM GRAN x10^3 (test code = 0033096451) 0.04 10*3/uL 0.00-0.06 LYMPH x10^3 (test code = 731-0) 2.08 10*3/uL 0.70-7.40 MONO x10^3 (test code = 742-7) 0.71 10*3/uL 0.00-0.50 H EOS x10^3 (test code = 711-2) 0.08 10*3/uL 0.00-0.40 BASO x10^3 (test code = 704-7) 0.05 10*3/uL 0.00-0.10 Lab Interpretation (test code = 40570-4) Abnormal [facility] [id number] 20:56:00* Test Item Value Reference Range Interpretation Comme nts POCT PREG (test code = 1605) Positive On board controls acceptable with C Line (test code = 3574) Yes POCT PREG LOT # (test code = 3575) POCT PREG TEST DATE ( test code = 3576) [facility] URINALYSIS W/O SPECIFIC [id number] 20:55:00* Test Item Value Reference Range Interpretation Comme nts POCT PH U (test code = 3254) n/a 5-8 POCT U LEUK EST (test code = 3263) n/a Negative - Negative POCT U NIT (test code = 3262) n/a Negative - Negati ve POCT U PROT (test code = 3259) negative Negative - Negat ellis POCT U GLU (test code = 3256) negative Negative - Negati ve POCT U KETONE (test code = 3258) n/a Negative - Neg ative POCT U BLD (test code = 3257) n/a Negative - Negati ve [facility] ClinicsD-[id number] 02:21:15* Test Item Value Reference Range Interpretation Comments D-DIMER (test code = 4521676428) See_Comment [Automated message] The system which generated this result transmitted reference range: <0.41 ?g/mL (FEU). The reference range was not used to interpret this result as normal/abnormal. KAVYA (test code = KAVYA) This test may be used in conjunction with a clinical pretest probability (PTP) assessment model to exclude venous thromboembolism (VTE) in patients suspected of deep venous thrombosis (DVT) and pulmonary embolism (PE) A D-Dimer value less than 0.50 ?g/ml (FEU) has a negative predicative value of 96 to 100% (95% CI)and 97 to 100% (95% CI) as an aid in the diagnosis of deep vein thrombosis (DVT) and pulmonary embolism when there is low or moderate pretest probability of PE or DVT. D-Dimer values are expressed in initial fibrinogen equivalent units (FEU)" The assay results should be used with other information, including the clinical context, in forming a diagnosis. Lab Interpretation (test code = 49307-0) Normal [facility] [id number] 01:11:00* Test Item Value Reference Range Interpretation Comme nts POCT PREG (test code = 1605) negative On board controls acceptable with C Line (test code = 3574) present POCT PREG LOT # (test code = 3575) [id number] POCT PREG TEST DATE ( test code = 357) Lab Interpretation (test cod e = 04191-9) Normal [id number] 19:48:00* Test Item Value Reference Range Interpretation Comme nts APPEARANCE (test code = 2508965646) Hazy Clear A COLOR (test code = 0599464705) Yellow Yellow PH (test code = 1870982000) 4.8-8.0 SP GRAVITY (test code = 6510356041) 1.003-1.030 GLU U QUAL (test code = 4881226793) Normal Normal BLOOD (test code = 6081803772) 3+ Negative A KETONES (test code = 9857068738) Negative Negative PROTEIN (test code = 2887-8) Negative Negative UROBILIN (test code = 2932332330) Normal Normal BILIRUBIN (test code = 4905333165) Negative Negative NITRITE (test code = 0018651187) Negative Negative LEUK ROBEL (test code = 4837706557) Negative Negative RBC/HPF (test code = 9337183624) >182 See_Comment H [Automated messa ge] The system which generated this result transmitted reference range: 0 - 3 HPF. The reference range was not used to interpret this result as normal/abnormal. WBC/HPF (test code = 6754494788) See_Comment [Automated messa ge] The system which generated this result transmitted reference range: 0 - 5 HPF. The reference range was not used to interpret this result as normal/abnormal. BACTERIA (test code = 7201395869) Few Negative A MUCOUS (test code = 8652732352) Slight Negative LPF A SQ EPITH (test code = 1131377939) HPF Lab Interpretation (test code = 88808-5) Abnormal [facility]icsPOCT [id number] 19:02:00* Test Item Value Reference Range Interpretation Comme nts POCT PREG (test code = 1605) neg On board controls acceptable with C Line (test code = 3574) pos POCT PREG LOT # (test code = 3575) [id number] POCT PREG TEST DATE ( test code = 3576) 11/24/2020 Lab Interpretation (test cod e = 59698-7) Normal [facility] History and Physical Notes Date/Time Note Provider Source 2022-12-29 04:45:54 Formatting of this n ote is different from the original. TRIAGE/L&D HISTORY & PHYSICAL IDENTIFYING DATA Lily Alexis is 17 year old, /White, 38w4d, female with SAMM 01/08/2023, by Ultrasound. : 2005 Primary Care Physician: Shanell Gutierrez CHIEF COMPLAINT Contractions HISTORY OF PRESENT ILLNESS Lily Alexis is a 17 year old at 38w4d who presents for contractions. Started for the past few days, worsened today and more frequent. Patient denies vaginal bleeding, denies leakage of fluid. Patient denies headache, denies nausea/vomiting, denies RUQ pain, denies visual abnormalities. Endorses normal movement. PAST OBSTETRIC HISTORY OB History Para Term AB Living 1 SAB IAB Ectopic Multiple Live Births # Outcome Date GA Lbr John/2nd Weight Sex Delivery Anes PTL Lv 1 Current PAST MEDICAL HISTORY Problem list: Patient Active Problem List Diagnosis Date Noted 38 weeks gestation of 12/29/2022 Oligohydramnios in third trimester 12/29/2022 Group beta Strep positive 12/15/2022 Uterine size-date discrepancy, antepartum 11/13/2022 Gestational diabetes mellitus (GDM) in third trimester controlled on oral hypoglycemic drug 11/13/2022 General counseling and advice on female contraception 11/13/2022 Gastroesophageal reflux in 10/09/2022 Pain of right hand 10/09/2022 Dysuria 06/21/2022 Mild tobacco abuse 06/21/2022 Tooth decay 06/21/2022 Supervision of high risk in third trimester 05/23/2022 Nausea and vomiting during 05/23/2022 Patient underweight 05/23/2022 Operations: No past surgical history on file. 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 Utility Primary nocturnal enuresis 10/02/2010 Unspecified constipation 05/26/2011 CURRENT HEALTH STATUS Medications: Current Facility-Administered Medications Medication Dose Route Frequency Last Rate Last Admin D5W-LR IV infusion 1,000 mL 1,000 mL IV Infusion TITRATE dextrose 50 % in water (D50W) injection 25 mL 25 mL Slow IV Push PRN glucagon (GLUCAGEN DIAGNOSTIC KIT) injection 1 mg 1 mg Intramuscular PRN lactated ringers IV infusion 500 mL 500 mL IV Infusion PRN - SEE INSTRUCTIONS lidocaine 1% (PF) (XYLOCAINE) injection 0.3 mL 0.3 mL Infiltration PRN - SEE INSTRUCTIONS lidocaine 1% (XYLOCAINE) 10 mg/mL (1 %) injection 50 mL 50 mL Infiltration PRN - SEE INSTRUCTIONS penicillin g potassium 5 Million Units in NaCl 0.9% (NS) 100 mL MINI-BAG 5 Million Units IV Piggyback ONCE Followed by penicillin GK 3 million units in NS 50 mL IV infusion (CNR) 3 Million Units IV Piggyback Q4H ABX Sliding Scale Insulin Subcutaneous SEE-INSTRUCTIONS sodium citrate-citric acid (BICITRA) 500-334 mg/5 mL solution 30 mL 30 mL Oral PRE-PROCEDURE ONCE Allergies and drug reactions: Aspirin, Ibuprofen, and Latex HOME MEDICATIONS Medications Prior to Admission Medication Sig Dispense Refill Last Dose metFORMIN 500 mg tablet Take 1 tablet by mouth in the morning for 90 days. 30 tablet 2 Not Taking omeprazole 40 mg capsule Take 1 capsule by mouth in the morning. 30 capsule 2 duplicate FREESTYLE LITE STRIPS strip USE TO CHECK BLOOD SUGAR FOUR TIMES A DAY DIRECTED [facility] [place] Swabs PadM Apply to area 4 times a day to check blood sugar as directed. 1 Each 6 msc Blood Sugar Diagnostic, Disc Strp Check blood sugar 4 times a day as directed. 100 Strip 5 [facility] [place] Blood-Glucose Meter (BLOOD GLUCOSE MONITORING) Kit Check blood sugar 4 times daily as directed. Brand per Insurance. 1 Kit 0 [facility] [place] Lancets [facility] Check blood sugars 4 times a day as directed. 100 Each 5 [facility] [place] omeprazole 20 mg capsule Take 1 capsule by mouth in the morning. 30 capsule 2 PRN ondansetron 4 mg tablet Take 1 tablet by mouth every 8 (eight) hours as needed for Nausea and Vomiting (N/V). 30 tablet 1 Not Taking PNV no.153/FA/om3/dha/epa/fish ( GUMMIES ORAL) Take by mouth. Taking SOCIAL HISTORY Tobacco History: Social History Tobacco Use Smoking Status Every Day Packs/day: .5 Types: Cigarettes Smokeless Tobacco Not on file Tobacco Comments uncle smokes around patient Drug History: Social History Substance and Sexual Activity Drug Use Not Currently Types: Marijuana Alcohol History: Social History Substance and Sexual Activity Alcohol Use Not Currently FAMILY HISTORY Family History Problem Relation Age of Onset Non-contributory Mother Non-contributory Father Breast Cancer Maternal Grandmother Diabetes Maternal Grandmother Diabetes Paternal Grandfather REVIEW OF SYSTEMS General: negative Skin: negative HEENT: negative Neck: negative HEME: negative Resp: negative Cardio: negative GI: negative : see HPI Endo: negative Neuro: negative Back: negative DOUGLAS: negative Psych: negative VITAL SIGNS BP: (116-121)/(74-84) Temp: [36.7 ?C (98 ?F)] Temp source: Oral (12/29 0327) Pulse: [102-105] Resp: [18] SpO2: [99 %] Height: [162.6 cm (5' 4")] Weight: [55.3 kg (122 lb)] BMI (calculated): [20.94] PHYSICAL EXAMINATIONS General: uncomfortable with pain HEENT: symmetric, negative for masses Lungs: unlabored breathing Cardiology: peripheral pulses intact and regular Abdomen: soft, non-tender, non-distended, no liver, spleen or abnormal masses palpated and Gravid Extremities: no clubbing, cyanosis, or edema Neuro: patient moving all extremities, no facial droop : 1/90/-2, bag palpated REVIEW OF LABORATORY, PATHOLOGY, AND RADIOLOGY DATA Lab results: Type & Screen Lab Results Component Value Date/Time IABORH O Positive 10/03/2022 10:30 AM IAT Negative 10/03/2022 10:30 AM Serologies Lab Results Component Value Date/Time VZVIGG Negative 06/06/2022 11:05 AM RUBG Positive 06/06/2022 11:05 AM HBSAG Negative 06/06/2022 11:05 AM HBSAG 0.06 06/06/2022 11:05 AM Chlamydia Lab Results Component Value Date/Time VCAA Negative 12/12/2022 03:35 PM Group B Strep Lab Results Component Value Date/Time CGB Positive (A) 12/12/2022 03:35 PM GTT Lab Results Component Value Date/Time GLUF 85 10/17/2022 07:21 AM OPNL2NC 205 (H) 10/17/2022 08:27 AM GLU3H 157 (H) 10/17/2022 10:26 AM CBC Lab Results Component Value Date/Time HGB 11.2 (L) 10/03/2022 10:30 AM HGB 12.8 06/12/2006 10:58 AM HCT 32.5 (L) 10/03/2022 10:30 AM HCT 40.1 06/12/2006 10:58 AM PLT 358 10/03/2022 10:30 AM PLT 362 06/12/2006 10:58 AM Active Hospital Problems Diagnosis Date Noted 38 weeks gestation of 12/29/2022 Oligohydramnios in third trimester 12/29/2022 Group beta Strep positive 12/15/2022 Gestational diabetes mellitus (GDM) in third trimester controlled on oral hypoglycemic drug 11/13/2022 Resolved Hospital Problems No resolved problems to display. Present on Admission: 38 weeks gestation of Gestational diabetes mellitus (GDM) in third trimester controlled on oral hypoglycemic drug Group beta Strep positive Oligohydramnios in third trimester Placenta Accreta Screening Prior ? : No Prior Uterine Surgery?: No Placenta low lying/previa in current ? : No Ultrasound suspicion of PASD in current ?: (Not specifically mentioned) Screening outcome: A positive screening outcome indicates a history of prior delivery or prior uterine surgery, AND the presence of either a placenta low lying/previa or ultrasound suspicion of PASD in the current . No specifically mentioned negative PASD, however low risk ASSESSMENT AND PLAN Lily Alexis is a 17 year old at 38w4d by u(23) who presents with contractions. Contractions Oligohydramnios - started this morning, have gotten progressively worse - denies LOF, VB; +FM - SVE: /-2, palpable bag - TOCO: q4min - LINDA: 1.81cm - Plan: Admit for delivery due to oligohydramnios at term. A2DM - prescribed metformin, states she takes it prn if FS are elevated - FS on admission: 116 - SSI intrapartum GBS positive - treat intrapartum Antepartum course reviewed - 1 h 153, 3h 85/205/205/157, sero negative, Rimmune, VZVnot immune, O positive/IAT negative, GBS positive, Pap underage - H/H, plt: 11.2 / 32.5, 358 on 10/03 - Pvt of Dr. Cervantes Fetus - Presentation on admission: cephalic - posterior placenta - LINDA: 1.81cm - EFW: 2832g by [facility] u/s on 12/19, 33%tile - FHT reactive and reassuring - Normal anatomy scan Dianne Beavers MD Associated attestation - Kennedi Quinn MD - 12/29/2022 6:06 AM CDT I was L&D faculty on 12/29/2022 and agree with H&P below. Briefly, patient is a 17 year old at 38w4d who presented with contractions and was found to have oligohydramnios at term. I discussed the plan of care with the residents. Kennedi Bashir MD [facility] - [facility] Procedure Notes Date/Time Note Provider Source 2022-12-29 11:11:00 Associated Order(s): Central Neuraxial Block Central Neuraxial Block Date/Time: 12/29/2022 11:11 AM Performed by: Alban Leonardo MD Authorized by: Gama Rich MD Patient Location: OB Reason for Block: OB request, Patient request, Labor analgesia, Surgical anesthesia and Post-op pain management Staff: Anesthesiologist: Gama Rich MD Resident/BISCUIT MAKER: Alban Leonardo MD Performed by: resident/BISCUIT MAKER Preanesthetic Checklist: patient identified, IV checked, risks and benefits explained, monitors and equipment checked, timeout performed, pre-op evaluation, site marked and anesthesia consent Procedure: Type of Neuraxial: Epidural Sterility Prep cap, gloves, hand hygiene, mask and drape Sedation Level no sedation Prep: Betadine and patient draped Monitoring: heart rate, continuous pulse ox, heart rate / toco and NIBP Location: lumbar (1-5) Lumbar: L4-L5 Approach: midline Technique: catheter and RAMOS saline Guidance with: landmark technique} Epidural/Spinal [place] and/or Catheter: Epidural/Spinal Kit: BBchad Needle Type: Tuohy Needle Gauge: 17 G Needle Length: 3.5 in (8.89 cm) Needle Insertion Depth: 6 Catheter Type: multiport Catheter Size: 19 G Catheter at Skin Depth: 11 Number of Attempts: 1 Test Dose: lidocaine 1.5% with epinephrine 1-to-200,000 and negative Dose: 3 cc Catheter Securement Method: surgical tape and Tegaderm Assessment: Procedure Assessment: patient tolerated procedure well with no complications Notes: Atraumatic placement. Positive RAMOS w/ saline. Aspiration negative for CSF. Catheter secured to pt back. Fall precautions given. AN-ANESTHESIOLOGY [facility] - Health Progress Notes Date/Time Note Provider Source 2022-11-13 14:00:00 Formatting of this n ote might be different from the original. Age: [age] year old GA: 32w0d Lily Alexis is an 16 y.o. female who presents to clinic for NST procedure only. is complicated by gestational diabetes mellitus; diet controlled at this time. Diet controlled GDM, antepartum 32 weeks gestation of Uterine size-date discrepancy, antepartum - NST reactive; contractions are not noted at this time. Category I EFM tracing. - Order placed for follow up growth ultrasound with MFM (size less than dates). - MFM consult is scheduled for 11/21/2022 by telehealth visit. - Bi-weekly NST procedures scheduled for remaining weeks of . - Glucose log from 11/06/2012 - 11/13/2022 reviewed. 26% of levels were elevated, but elevation was only significant in one two hour postprandial level following consumption of "waffles". Detailed education offered. Will continue to monitor results and initiate treatment as indicated. - Log will be scanned to chart. - Patient considering delivery provider; information given for Dr. Stack, Dr. Carrera, and Dr. Cervantes. - RTC in two weeks; sooner as indicated. - Bring glucose logs to each visit including NST visits. Third trimester education - Monitor for vaginal bleeding, loss of fluid, and/or contractions - Monitor for symptoms of preeclampsia (headache, visual disturbances, epigastric (under right ribs) pain, and increased blood pressure - If there is a perceived decrease in movement, monitor kick counts. Drink glass of water or juice and rest on left side for approximately two hours. If you feel 10 kicks (movements) over a period of two hours, this is normal. If you do not feel the fetus moving, present to OB clinic or antepartum unit at the [facility]. - Continue daily vitamins - Continue healthy diet, light exercise, and increased hydration with water (at least 64 ounces daily) - Monitor for healthy weight gain -Contact clinic for any concerns - Consider product marketing manager, breast and/or bottle feeding, and contraception during this time (plan ahead) - Consider birthing class or private education regarding delivery 4. Gastroesophageal reflux in - Increase Omeprazole to 40mg capsule, orally, one capsule daily - Do not lie flat following a meal - RTC for worsening symptoms - Denies epigastric pain 5. General counseling and advice on female contraception - Discussed options for long acting reversible contraception. Printed educational brochure given to patient regarding [place]. Detailed education offered. Patient will consider. RTC on Thursday, November 17, 2022 for repeat NST in [place]. Amol Fernandez NP 11/13/2022 3:50 PM [address] [facility] Notes Date/Time Note Provider Source 2022-12-31 11:29:16 Formatting of this n ote might be different from the original. Problem: Discharge Planning - Goal: Adequate for discharge Outcome: Adequate for discharge Goal: Mood stable Outcome: Adequate for discharge Problem: Complications of hemorrhage (risk or actual) Goal: Absence of active bleeding Outcome: Adequate for discharge Goal: Absence of complications Outcome: Adequate for discharge Problem: Infection Risk Goal: Absence of infection Outcome: Adequate for discharge Problem: Pain Goal: Control of pain at or below patient's documented comfort goal Outcome: Adequate for discharge Goal: Reduction in pain sensation Outcome: Adequate for discharge ELLA Onofre RN [facility] 2022-12-30 21:40:16 Formatting of this n ote might be different from the original. Problem: Discharge Planning - Goal: Adequate for discharge Outcome: Progressing as expected Goal: Mood stable Outcome: Progressing as expected Problem: Complications of hemorrhage (risk or actual) Goal: Absence of active bleeding Outcome: Progressing as expected Goal: Absence of complications Outcome: Progressing as expected Problem: Infection Risk Goal: Absence of infection Outcome: Progressing as expected Problem: Pain Goal: Control of pain at or below patient's documented comfort goal Outcome: Progressing as expected Goal: Reduction in pain sensation Outcome: Progressing as expected Tamiko Olivares RN [facility] 2022-12-30 10:00:00 Formatting of this n ote is different from the original. Images from the original note were not included. This note was copied from a baby's chart. 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 Breast Pump Ordered Delivery method Breast changes during Enlarged;Darkening of areola Periods Regular Risk factors Tobacco user;GDM Infant Oral Assessment Oral assessment Deferred Date of 12/29/22 Time of 1512 location NICU Breast Assessment Breast Assessment Initial Symmetry Symmetrical Size L (D-DD) Shape Rounded Other Soft Nipple & Areola Assessment Left Areola Pliable Right Areola Pliable Left Nipple Colostrum visible;Everted Right Nipple Colostrum visible;Everted Literature Resources Resources Understanding Mother and Baby Care expressing for you baby in NICU Education Benefits of breastmilk;Hand expression;Benefits of skin to skin contact;Maternal nutrition/hydration;Use/se ttings of pump;Storage of expressed breastmilk;Pump frequency;Labeling of expressed breastmilk;Cleaning of pump parts;Lactogenesis Manager Software Development Observation Pumping Yes drops Interventions Taught hand expression Follow up Follow up in hospital Recommended Feeding Plan Recommended feeding plan Pump/hand express minimum 8 times in 24 hours including nights. Pump for 15-25 min. Rj Umaña RNC-MN, IBCLC Pager - [phone] Bruna Umaña RN [facility] 2022-12-30 09:50:40 Formatting of this n ote might be different from the original. Problem: Discharge Planning - Goal: Adequate for discharge Outcome: Progressing as expected Goal: Mood stable Outcome: Progressing as expected Problem: Complications of hemorrhage (risk or actual) Goal: Absence of active bleeding Outcome: Progressing as expected Goal: Absence of complications Outcome: Progressing as expected Problem: Infection Risk Goal: Absence of infection Outcome: Progressing as expected Problem: Pain Goal: Control of pain at or below patient's documented comfort goal Outcome: Progressing as expected Goal: Reduction in pain sensation Outcome: Progressing as expected Martha Gordon RN [facility] 2022-12-30 07:27:52 Formatting of this n ote might be different from the original. Problem: Discharge Planning - Goal: Adequate for discharge Outcome: Progressing as expected Goal: Mood stable Outcome: Progressing as expected Problem: Complications of hemorrhage (risk or actual) Goal: Absence of active bleeding Outcome: Progressing as expected Goal: Absence of complications Outcome: Progressing as expected Problem: Infection Risk Goal: Absence of infection Outcome: Progressing as expected Problem: Pain Goal: Control of pain at or below patient's documented comfort goal Outcome: Progressing as expected Goal: Reduction in pain sensation Outcome: Progressing as expected Ashlyn Ocampo RN [facility] 2022-12-29 17:54:27 Formatting of this n ote might be different from the original. Problem: Discharge Planning - Goal: Adequate for discharge Outcome: Progressing as expected Goal: Mood stable Outcome: Progressing as expected Problem: Intrapartum process (including labor pain) Goal: Absence of or reduction of complications of labor Outcome: Resolved Goal: Able to cope with pain Outcome: Resolved Goal: Adequate to move to next level of care Outcome: Resolved Goal: Reduction in pain sensation Outcome: Resolved Vicky Loomis RN [facility] 2022-12-29 17:53:49 Formatting of this n ote might be different from the original. Problem: Intrapartum process (including labor pain) Goal: Absence of or reduction of complications of labor Outcome: Resolved Goal: Able to cope with pain Outcome: Resolved Goal: Adequate to move to next level of care Outcome: Resolved Goal: Reduction in pain sensation Outcome: Resolved [facility] 2022-12-29 16:58:39 Formatting of this n ote is different from the original. Patient: Lily Alexis Procedure Summary Date: 12/29/22 Room / Location: Anesthesia Start: 1030 Anesthesia Stop: 1647 Procedure: CENTRAL NEURAXIAL BLOCK Diagnosis: Scheduled Providers: Responsible Provider: Gama Rich MD Anesthesia Type: Epidural ASA Status: 2 Anesthesia Type: Epidural Last vitals BP (!) 150/84 (12/29/22 1600) Temp Pulse 95 (12/29/22 1600) Resp 17 (12/29/22 1600) SpO2 98 % (12/29/22 1600) There were no known notable events for this encounter. Anesthesia Post Evaluation Patient location during evaluation: bedside Patient participation: complete - patient participated Level of consciousness: awake and alert Pain management: satisfactory to patient Airway patency: patent Cardiovascular status: acceptable and blood pressure returned to baseline Respiratory status: acceptable Hydration status: acceptable Comments: BP (!) 150/84 | Pulse 95 | Temp 37.4 ?C (99.4 ?F) | Resp 17 | Ht 1.626 m (5' 4") | Wt 55.3 kg (122 lb) | LMP 03/25/2022 (Exact Date) | SpO2 98% | BMI 20.94 kg/m? Block resolving appropriately AN-ANESTHESIOLOGY ANESTHESIOLOGIST [facility] 2022-12-29 11:27:45 Formatting of this n ote might be different from the original. Spoke with patient, she is currently admitted in [place]. She is doing well and set to deliver. Just received an epidural, currently 4cm dilated. Informed patient and partner to follow-up next week if anything is needed. Patient verbalized understanding. Pauly Jacinto RN 12/29/2022 11:[address] [facility] 2022-12-29 11:09:09 Formatting of this n ote is different from the original. Name/ MRN / Age / Gender: Lily Alexis, [id number] 17 year old female BMI: Estimated body mass index is 20.94 kg/m? as calculated from the following: Height as of this encounter: 1.626 m (5' 4"). Weight as of this encounter: 55.3 kg (122 lb). Allergies: Aspirin, Ibuprofen, and Latex Last Vitals: BP Readings from Last 1 Encounters: 12/29/22 130/57 Pulse Readings from Last 1 Encounters: 12/29/22 106 SpO2 Readings from Last 1 Encounters: 12/29/22 99% Date of Surgery: 12/29/2022 Surgeon: * No surgeons listed * Procedure: CENTRAL NEURAXIAL BLOCK OR Location: [facility] [facility]EST[facility]IA OUT OF OR - OR LOCATION Anesthesia Preop Eval (physical exam) Anesthesia Preop: Chart Review and [id number] PONV Risk Factors: female Anesthesia History Anesthesia History Negative (-) Hx of anesthetic complications Previous Anesthetics/Airways Cardiovascular Negative Cardiac ROS Comments: BP Readings from Last 3 Encounters: 12/29/22 : 130/57 12/25/22 : 110/69 12/22/22 : 116/65 Pulmonary Negative Pulmonary ROS (+) Asthma Neuro/Musculoskeletal Negative Neuro/Musculosketal ROS (-) Spinal Cord injury (-) Positioning limitations GI/Hepatic Negative GI/Hepatic ROS Comments: ALBUMIN (g/dL) Date Value 11/30/2021 4.8 TOTAL BILI (mg/dL) Date Value 11/30/2021 0.4 ALTv (U/L) Date Value 11/30/2021 12 AST(SGOT) (U/L) Date Value 11/30/2021 16 ALK PHOS (U/L) Date Value 11/30/2021 90 Hematology Negative Hematology ROS Comments: WBC x10^3 (/CMM) Date Value 06/12/2006 14.1 WBC (10*3/?L) Date Value 12/29/2022 20.30 (H) HGB Date Value 12/29/2022 10.1 g/dL (L) 06/12/2006 12.8 G/DL PLT x10^3 (/CMM) Date Value 06/12/2006 362 PLT (10*3/?L) Date Value 12/29/2022 357 No results found for: "PTINR" No results found for: "APTTMNNM" No results found for: "APTTPAT" (+) Patient accepts blood transfusion Renal Negative Renal ROS Comments: CREATININE (mg/dL) Date Value 11/30/2021 0.88 K (mmol/L) Date Value 11/30/2021 4.0 NA (mmol/L) Date Value 11/30/2021 135 Skin Negative Skin ROS Endo/Other Negative Endo/Other ROS Comments: No results found for: "TTIEXHJ2M" HEMOGLOBIN A1c-Q Date Value Ref Range Status 11/06/2022 5.0 <5.7 % of tota* Final Comment: For the purpose of screening for the presence of diabetes: <5.7% Consistent with the absence of diabetes 5.7-6.4% Consistent with increased risk for diabetes (prediabetes) > or =6.5% Consistent with diabetes This assay result is consistent with a decreased risk of diabetes. Currently, no consensus exists regarding use of hemoglobin A1c for diagnosis of diabetes in children. According to [place] Diabetes Association (ADA) guidelines, hemoglobin A1c <7.0% represents optimal control in non- diabetic patients. Different metrics may apply to specific patient populations. Standards of Medical Care in Diabetes(ADA). Other CURTAIN STITCHER Comments: 17 year old female at 38w4d requesting central neuraxial anesthesia Pediatric Pediatric N/A N/A Preoperative Medication Instructions Continue taking all prescribed medications except: CHONG inhibitors, ARBs, diuretics, all oral diabetes medications Anticoagulant Therapy: Defer to surgeons Insulin: Take 1/2 dose the night prior to surgery. Hold on DOS. Phentermine: Alert [facility] anesthesiologist SGLT2 Inhibitors: "gliflozins" to be held for 3 days prior to elective surgeries MAC Cases: Continue taking CHONG inhibitors and ARBs ASA Classification ASA: 2 Current Medications: No outpatient medications have been marked as taking for the 12/29/22 encounter (Hospital Encounter). Previous Surgeries: No past surgical history on file. Anesthesia Physical Exam General no apparent distress and alert and oriented x 3 Neuro/Psych neurological Nonfocal Dental no notable dental hx Abdominal GI exam normal (+) abdomen soft, benign and gravid Airway Mallampati score:III TM distance:> 5 cm Neck ROM: full Mouth opening:small, normal (+) Normal facies Extremity Normal extremity Pulmonary pulmonary exam normal and bilateral clear to auscultation Other Cardiovascular cardiovascular exam normalRhythm:Regular Rate: Normal Anesthesia Plan ASA Status: 2 Plan discussed during pre-op evaluation: General, Epidural, Spinal and CSE Anesthetic plan on DOS: Epidural Anesthesia plan discussed with: patient or loss control representative Post-Operative Analgesia: routine analgesia & antiemetics Recovery Plan: PACU and LDR Additional comments: T [facility] 2022-12-29 10:50:51 Formatting of this n ote might be different from the original. Attempted to contact patient by phone, no answer, message left on voicemail to call back. Pauly Jacinto RN 12/29/2022 10:50 AM, [facility] 2022-12-29 08:50:16 Formatting of this n ote might be different from the original. Problem: Intrapartum process (including labor pain) Goal: Absence of or reduction of complications of labor Outcome: Progressing as expected Goal: Able to cope with pain Outcome: Progressing as expected Goal: Adequate to move to next level of care Outcome: Progressing as expected [facility] Cassie Moran RN [facility] 2022-12-29 06:39:48 Formatting of this n ote might be different from the original. POC initiated Shobha Bruno RN [facility] 2022-12-25 14:00:00 Formatting of this n ote might be different from the original. Age: [age] year old GA: 38w0d Lily Alexis is a 17 y.o. female who presented to clinic for NST procedure only today. Patient doing well and without complaints. GDM in third trimester controlled on oral hypoglycemic drug 38 weeks gestation Uterine size-date discrepancy - Endorses positive movement - Denies loss of fluid, vaginal bleeding, vaginal discharge, or contractions - NST reactive. Category 1 EFM tracing Third trimester education - Monitor for vaginal bleeding, loss of fluid, and/or contractions - Monitor for symptoms of preeclampsia (headache, visual disturbances, epigastric (under right ribs) pain, and increased blood pressure - If there is a perceived decrease in movement, monitor kick counts. Drink glass of water or juice and rest on left side for approximately two hours. If you feel 10 kicks (movements) over a period of two hours, this is normal. If you do not feel the fetus moving, present to OB clinic or antepartum unit at the [facility]. - Continue daily vitamins - Continue healthy diet, light exercise, and increased hydration with water (at least 64 ounces daily) - Monitor for healthy weight gain -Contact clinic for any concerns - Consider product marketing manager, breast and/or bottle feeding, and contraception during this time (plan ahead) - Consider birthing class or private education regarding delivery 4. Group beta strep positive - Treatment in labor RTC on Friday, December 30, 2022 for NST procedure; sooner as indicated. I have seen and examined the patient and agreed with the note above Amol Fernandez NP 12/25/2022 2:[address] [facility] 2022-12-22 15:54:54 Formatting of this n ote might be different from the original. Please inform Ms. Alexis that the date of induction at [facility] in [place] is January 03 at 8:00 am. She should register on the third floor of labor and delivery. Amol Fernandez NP 12/22/2022 3:[address] [facility] 2022-12-22 15:49:16 Formatting of this n ote might be different from the original. Pt has been scheduled for IOL on 01/03/2023 @ 39.2wks. Registration time is 8am, to be NPO. Pt to register on the 3rd floor of [facility]. Jimena Su RN [facility] 2022-12-22 15:31:04 Formatting of this n ote might be different from the original. Anand velasco, Ms. Alexis is an 16 y.o. female, . She is 37w4d gestation today. She has decided that she desires an IOL at 39 weeks in [place]. She is gestational diabetic controlled on 500mg metformin daily. Has had consult(s) with M. Uterine size is less than dates, but last ultrasound shows estimated weight at 33% tile. She has had bi-weekly NST procedures and has been very compliant with care during . Once the date is established, I will contact patient with the information. Thank you, Amol Fernandez NP 12/22/2022 3:[address] [facility] 2022-12-22 14:00:00 Formatting of this n ote might be different from the original. Age: [age] year old GA: 37w4d Lily Alexis is an 16 y.o. female who presented to clinic for scheduled ZACHARY visit and NST procedure. is complicated by GDM controlled by 500mg metformin. GDM in third trimester controlled on oral hypoglycemic drug 37 weeks gestation of Uterine size-date discrepancy, antepartum - Endorses positive movement - Denies loss of fluid, vaginal bleeding, vaginal discharge, or contractions - POCT urinalysis w/o specific gravity; negative results - IOL scheduled on 01/03/2023 at 8am [facility] - NST reactive; category 1 EFM tracing. No contractions, multiple accelerations. Baseline 135. - Glucose log reviewed; 100% normal ranges. - Uterus measures 34cm at 37w4d gestation Third trimester education - Monitor for vaginal bleeding, loss of fluid, and/or contractions - Monitor for symptoms of preeclampsia (headache, visual disturbances, epigastric (under right ribs) pain, and increased blood pressure - If there is a perceived decrease in movement, monitor kick counts. Drink glass of water or juice and rest on left side for approximately two hours. If you feel 10 kicks (movements) over a period of two hours, this is normal. If you do not feel the fetus moving, present to OB clinic or antepartum unit at the [facility]. - Continue daily vitamins - Continue healthy diet, light exercise, and increased hydration with water (at least 64 ounces daily) - Monitor for healthy weight gain -Contact clinic for any concerns - Consider product marketing manager, breast and/or bottle feeding, and contraception during this time (plan ahead) - Consider birthing class or private education regarding delivery - 3rd trimester teaching done- reviewed S/S of PTL (contractions, leakage of fluid and Vaginal bleeding) - Kick Counts. - [place], pelvic and lower back pains- expectations and differences with S/S of PTL - She plans to breast/bottle feed - BC options reviewed. Patient desires considering - Music Copyist: Francisca Linn information given - Encourage patient to bring in plan, if desired 4. Group beta strep positive - treatment in labor RTC on 12/25/2022 for NST procedure. I have seen and examined the patient and agreed with the note above Amol Fernandez NP 12/22/2022 4:04 PM [facility] [employer], 2022-12-19 09:00:00 Formatting of this n ote might be different from the original. Reviewed and noted. Will discuss at visit on 12/22/2022 [facility] [place] 2022-12-18 14:00:00 Formatting of this n ote might be different from the original. Age: [age] year old GA: 37w0d Lily Alexis is an 16 y.o. female who presented to clinic for NST procedure only today. Weekly visit was on Thursday, December 15, 2022. Patient doing well with no complaints verbalized. is complicated by gestational DM controlled with Metformin 500mg daily. GDM in third trimester controlled on oral hypoglycemic drug 37 weeks gestation of - Endorses positive movement - Denies loss of fluid, vaginal bleeding, vaginal discharge, or contractions - Patient desires delivery in [place] - NST reactive; Category 1 EFM tracing without contractions. Multiple accelerations. - 3rd trimester teaching done- reviewed S/S of PTL (contractions, leakage of fluid and Vaginal bleeding) - Kick Counts. - [place], pelvic and lower back pains- expectations and differences with S/S of PTL - Encourage patient to bring in plan, if desired RTC on Thursday, December 22, 2022. I have seen and examined the patient and agreed with the note above Amol Fernandez NP 12/18/2022 3:27 PM [facility] 2022-12-15 14:00:00 Formatting of this n ote might be different from the original. Age: [age] year old GA: 36w4d Lily Alexis is an 16 y.o. female who presented to clinic for NST procedure only today at 36w4d. Patient with no complaints. Desires to deliver in [place]. Supervision of high risk in third trimester 36 weeks gestation of GDM in third trimester controlled on oral hypoglycemic drug - NST reactive; category 1 EFM tracing. Contractions not present. Multiple heart rate accelerations. Third trimester education - Monitor for vaginal bleeding, loss of fluid, and/or contractions - Monitor for symptoms of preeclampsia (headache, visual disturbances, epigastric (under right ribs) pain, and increased blood pressure - If there is a perceived decrease in movement, monitor kick counts. Drink glass of water or juice and rest on left side for approximately two hours. If you feel 10 kicks (movements) over a period of two hours, this is normal. If you do not feel the fetus moving, present to OB clinic or antepartum unit at the [facility]. - Continue daily vitamins - Continue healthy diet, light exercise, and increased hydration with water (at least 64 ounces daily) - Monitor for healthy weight gain -Contact clinic for any concerns - Consider product marketing manager, breast and/or bottle feeding, and contraception during this time (plan ahead) 4. Positive testing for group B streptococcus - Positive; antibiotics in labor RTC on , December 18, 2022 for repeat NST and one week visit. I have seen and examined the patient and agreed with the note above Amol Fernandez NP 12/15/2022 2:54 PM [facility] [place] 2022-12-12 14:00:00 Formatting of this n ote might be different from the original. Images from the original note were not included. Age: [age] year old GA: 36w1d A2DM - discussed about : You should eat 3 meals with 2-3 snacks per day. A moderate exercise is recommended. - glucose log controlled except patient does not check 2 hr after breakfast. States that she eats 3x/day. Eat dinner around midnight and then go to bed. - on metformin 500 mg daily - NST reactive and reassuring - growth scan scheduled for 12/19/22 - continue 2x/wk NST Desires to be delivered in [place] as did not have a good experience at [facility] in general. Has not seen L&D. Recommend patient to tour [facility] L[facility]D and if still desires to be delivered in [place], we can facilitate that. This reviews what Dr. Cervantes talked about at your 36 week talk: 1. Go to Labor and Delivery when your contractions are 5-7 minutes apart and you have been able to time them for an hour. If you live more than 30 minutes from the hospital, then go when they are 10 minutes apart and you have been able to time them for an hour. 2. BUT, there are 4 reasons to go to Labor and Delivery REGARDLESS of what else is happening, whether you are [place] or not: 1. If your water breaks - - - it may be a gush or a constant trickle. If you are not sure, always come in to be checked. 2. Bleeding like your period. 3. If your baby's movements are less than 10 in an hour. If you are concerned this might be the case, drink a tall glass of cold fluids, lay down on your side on the couch or your bed and see how long it takes to note 10 movements - if less than 10, this needs to be evaluated immediately. 4. Contractions or Pain that is continuous. Normal labor contractions last only 45 seconds - 1 minute. cephalic presentation GC/CT and GBS obtained, CBC ordered Zika precautions reviewed Contraception PP: Undecided Delivery consent signed today RTC on for NST [facility] 2022-12-08 13:23:45 Formatting of this n ote might be different from the original. Spoke with patient, states that they are out of town and will reschedule NST. Pauly Jacinto RN 12/08/2022 1:[address] [facility] 2022-12-08 12:49:20 Formatting of this n ote might be different from the original. Pt calling returning a call for dr cervantes nurse Adrian Escoto [facility] 2022-11-27 14:00:00 Formatting of this n ote might be different from the original. Age: [age] year old GA: 34w0d Lily Alexis is an 16 y.o. female who presented to clinic for NST procedure. is complicated by gestational diabetes mellitus. Gestational DM in third trimester controlled on oral hypoglycemic drug 34 weeks gestation of 3. Uterine-size date discrepancy, antepartum - Endorses positive movement - Denies loss of fluid, vaginal bleeding, vaginal discharge, or contractions - labor precautions - Preeclampsia precautions - Daily kick counts - NST reactive; category 1 EFM tracing Third trimester education - Monitor for vaginal bleeding, loss of fluid, and/or contractions - Monitor for symptoms of preeclampsia (headache, visual disturbances, epigastric (under right ribs) pain, and increased blood pressure - If there is a perceived decrease in movement, monitor kick counts. Drink glass of water or juice and rest on left side for approximately two hours. If you feel 10 kicks (movements) over a period of two hours, this is normal. If you do not feel the fetus moving, present to OB clinic or antepartum unit at the [facility]. - Continue daily vitamins - Continue healthy diet, light exercise, and increased hydration with water (at least 64 ounces daily) - Monitor for healthy weight gain -Contact clinic for any concerns - Consider product marketing manager, breast and/or bottle feeding, and contraception during this time (plan ahead) - Consider birthing class or private education regarding delivery RTC on 12/01/2022 for repeat NST. Next ZACHARY visit is scheduled with Dr. Cervantes. I have seen and examined the patient and agreed with the note above Amol Fernandez NP 11/27/2022 2:[address] [facility] 2022-11-24 16:00:00 Formatting of this n ote might be different from the original. Age: [age] year old GA: 33w4d Lily Alexis is an 16 y.o. female who presented to clinic for scheduled ZACHARY visit with NST procedure; complicated by gestational DM controlled by metformin 500mg as prescribed by [facility]. Gestational DM in third trimester controlled on oral hypoglycemic drug 33 weeks gestation of - Endorses positive movement - Denies loss of fluid, vaginal bleeding, vaginal discharge, or contractions - POCT urinalysis w/o specific gravity; negative results - Discussed noting a " wishes" list for labor and delivery. - NST reactive; category 1 tracing. Contractions not present. - RTC on November for repeat NST procedure - Patient desires to deliver in [place] - Glucose log reviewed. Metformin has not been started. Detailed education offered on metformin and gestational diabetes, along with possible side effects of metformin. Understanding verbalized. - Levels do appear elevated more following dinner. Patient is becoming aware of what foods cause a spike in blood glucose levels. Bring glucose logs to all visits. Plan to review at NST in three days. Third trimester education - Monitor for vaginal bleeding, loss of fluid, and/or contractions - Monitor for symptoms of preeclampsia (headache, visual disturbances, epigastric (under right ribs) pain, and increased blood pressure - If there is a perceived decrease in movement, monitor kick counts. Drink glass of water or juice and rest on left side for approximately two hours. If you feel 10 kicks (movements) over a period of two hours, this is normal. If you do not feel the fetus moving, present to OB clinic or antepartum unit at the [facility]. - Continue daily vitamins - Continue healthy diet, light exercise, and increased hydration with water (at least 64 ounces daily) - Monitor for healthy weight gain -Contact clinic for any concerns - Consider product marketing manager, breast and/or bottle feeding, and contraception during this time (plan ahead) - Consider birthing class or private education regarding delivery RTC in three days for repeat NST. I have seen and examined the patient and agreed with the note above Amol Fernandez NP 11/24/2022 4:57 PM [address] [facility]
[2024-11-29] MEDS ORDERED: MORPHINE 2 MG/ML SYR ONE (01:25)
[2024-11-29] MEDS ORDERED: ONDANSETRON 4 MG/2 ML VIAL ONE (01:26)
[2024-11-29] MEDS ORDERED: NA CHLORIDE 0.9% 1,000 ML ONE (01:26)
[2024-11-29] MEDS ORDERED: FAMOTIDINE 20 MG/2 ML VIAL IV ONE (01:26)
[2024-11-29 01:39] LABS: Absolute Lymphocytes (CBC) 1.5 K/uL (0.7-4.9); Hematocrit 35.7 % (36.0-45.0); Hemoglobin 12.2 g/dL (12.0-15.0); MCH 30.4 pg (27.0-35.0); MCHC 34.0 g/dL (32.0-36.0); MCV 89.3 fL (80-100); MPV 6.5 fL (7.6-11.3); Nucleated RBC Absolute Count 0.0 (0-0); Nucleated Red Blood Cells % 0.0 % (0-0); RBC Red Blood Cell Count 4.00 M/uL (3.86-4.86); Sqamous Epithelial <5 /HPF (None Seen); Urine Culture Reflex Order REFLEXED; Urine Microscopic Reflex YN ORDER UMIC; White Blood Count 24.90 thou/uL (4.3-10.9)
[2024-11-29 02:03] LABS: Albumin 3.5 g/dL (3.4-5.0); Albumin/Globulin Ratio 1.0 (1.1-1.8); Alkaline Phosphatase 96 U/L (45-117); Anion Gap 8.1 mEq/L (5.0-15.0); BUN Blood Urea Nitrogen 5 mg/dL (7-18); Globulin 3.5 g/dL (2.3-3.5); Glucose Level 111 mg/dL (74-106); Lipase 16 U/L (13-75); Potassium 3.1 mEq/L (3.5-5.1)
[2024-11-29] MEDS ORDERED: CEFTRIAXONE 1000 MG/VIAL ONE (02:08)
[2024-11-29 02:11] LABS: ALT/SGPT < 14 U/L (13-56); AST/SGOT < 10 U/L (15-37)
[2024-11-29 02:39] LABS: Influenza A Ag Negative; Influenza B Ag Negative; SARS-CoV-2 Antigen Rapid Res Negative (Negative)
--- NOTE | 2024-11-29 03:13 | RAD REPORT ---
INDICATION: ABD PAIN COMPARISON: No existing relevant imaging studies are available TECHNIQUE: Enhanced CT of the abdomen and pelvis performed per protocol. Oral contrast was not administered. Mul tiplanar reconstructions were provided. Dose reduction techniques were utilized for this exam including automated exposure control, adjustmen ts to mA and/or kV according to patient's size, and the use of iterative reconstruction techniques. FINDINGS: LOWER CHEST: Lung bases are clear. LIVER: Unremarkable. SPLEEN: Unremarkable. PANCREAS: Unremarkable. ADRENALS: Unremarkable. KIDNEYS: Multifocal wedge-shaped cortical hypoenhancement throughout the kidneys, more prominent on t he right with associated perinephric and periureteral inflammatory stranding as well as uroepithelial thickening and enhancement of the renal pelvis and ureters. Mild fullness of the renal collecting systems. GALLBLADDER: Unremarkable. VESSELS: Aortoiliac system normal in course and caliber. BOWEL: Unremarkable. APPENDIX: Normal. FLUID: Small amount of pelvic free fluid. ADENOPATHY: No pathologic adenopathy. BLADDER: Circumferential thickening of the urinary bladder wall. PELVIS: Uterus and adnexa are unremarkable. BONES: No acute bony abnormality. SOFT TISSUES: Unremarkable. IMPRESSION: 1. Bilateral pyelonephritis, pyelitis and ureteritis, more severe on the right. 2. Cystitis. Electronically signed by: Efra Hunt DO 11/29/2024 03:10 AM CDT NR Due to temporary technical issues with the PACS/[employer] reporting system, reports are being juan ramon d by the in-house radiologist without review as a courtesy to ensure prompt reporting the interpreting radiologist is fully responsible for the content of the report. Transcribed Date/Time: 11/29/2024 3:13 AM
--- NOTE | 2024-11-29 03:37 | EDPHYS ---
Physician Documentation [facility] Name: Nithya Alexis Age: 18 yrs Sex: Female : 2005 Arrival Date: 11/29/2024 Time: 00:49 Bed 18 Private MD: ED Physician Ronal Ferrell HPI: 11/29 03:25 This 18 yrs old Female presents to ER via Ambulatory with complaints of ida Abdominal Pain, chills, Fever. 03:25 The patient reports fever, that was measured at 101 degrees Fahrenheit. Onset: The ida symptoms/episode began/occurred 3 day(s) ago. Modifying factors: there are no obvious modifying factors. Associated signs and symptoms: Pertinent positives: abdominal pain, chills, myalgias. Severity of symptoms: At their worst the symptoms were moderate in the emergency department the symptoms are worse markedly. The patient has not experienced similar symptoms in the past. HEAD CHARGER: 02:31 unknown ss12 Historical: - Allergies: 01:15 Aspirin; br2 01:15 Latex; br2 - PMHx: 01:15 ADD/HD; Anemia; PTSD; br2 - PSHx: 02:30 Surgery for broken vessel; ss12 - Immunization history:: Adult Immunizations not up to date. - Infectious Disease History:: Denies. - Social history:: Smoking status: Patient reports the use of cigarette tobacco products, smokes one-half pack cigarettes per day, Patient uses alcohol, occasionally. Patient/guardian denies using alcohol, street drugs. ROS: 03:27 Eyes: Negative for injury, pain, redness, and discharge, ENT: Negative for injury, ida pain, and discharge, Neck: Negative for injury, pain, and swelling, Respiratory: Negative for shortness of breath, cough, wheezing, and pleuritic chest pain, MS/Extremity: Negative for injury and deformity, Skin: Negative for injury, rash, and discoloration, Neuro: Negative for headache, weakness, numbness, tingling, and seizure, Psych: Negative for depression, anxiety, suicide ideation, homicidal ideation, and hallucinations, Allergy/Immunology: Negative for hives, rash, and allergies, Endocrine: Negative for neck swelling, polydipsia, polyuria, polyphagia, and marked weight changes, Hematologic/Lymphatic: Negative for swollen nodes, abnormal bleeding, and unusual bruising, 03: Constitutional: Positive for body aches, chills, fatigue, fever, malaise, 03:27 Cardiovascular: Positive for palpitations, 03:27 Abdomen/GI: Positive for abdominal pain, nausea, vomiting, 03: Back: Positive for flank pain, bilaterally, : : Positive for urinary symptoms, urinary frequency, small amounts, hematuria, burning with urination, difficulty urinating, Exam: : Head/Face: Normocephalic, atraumatic. Eyes: Pupils equal round and reactive to light, ida extra-ocular motions intact. Lids and lashes normal. Conjunctiva and sclera are non-icteric and not injected. Cornea within normal limits. Periorbital areas with no swelling, redness, or edema. ENT: Nares patent. No nasal discharge, no septal abnormalities noted. Tympanic membranes are normal and external auditory canals are clear. Oropharynx with no redness, swelling, or masses, exudates, or evidence of obstruction, uvula midline. Mucous membranes moist. Neck: Trachea midline, no thyromegaly or masses palpated, and no cervical lymphadenopathy. Supple, full range of motion without nuchal rigidity, or vertebral point tenderness. No Meningismus. Chest/axilla: Normal chest wall appearance and motion. Nontender with no deformity. No lesions are appreciated. Respiratory: Lungs have equal breath sounds bilaterally, clear to auscultation and percussion. No rales, rhonchi or wheezes noted. No increased work of breathing, no retractions or nasal flaring. Female : Normal external genitalia. Skin: Warm, dry with normal turgor. Normal color with no rashes, no lesions, and no evidence of cellulitis. MS/ Extremity: Pulses equal, no cyanosis. Neurovascular intact. Full, normal range of motion., bilateral aka Neuro: Awake and alert, GCS 15, oriented to person, place, time, and situation. Cranial nerves II-XII grossly intact. Motor strength 5/5 in all extremities. Sensory grossly intact. Cerebellar exam normal. Normal gait. : Constitutional: The patient appears febrile, lethargic, : Cardiovascular: Rate: tachycardic, actual rate is 100 bpm, Rhythm: regular, Pulses: no pulse deficits are appreciated, Heart sounds: normal, Edema: is not appreciated, JVD: is not appreciated, 03:27 Abdomen/GI: Inspection: abdomen appears normal, Bowel sounds: normal, Palpation: mild abdominal tenderness, in all quadrants, Liver: no appreciated palpable abnormalities, Hernia: not appreciated, 03:27 Back: pain, that is moderate, ROM is painful, normal spinal alignment noted, CVA tenderness, that is moderate, is noted bilaterally, muscle spasm, is not present, Straight leg raises: right lower extremity does not illicit pain, left lower extremity does not illicit pain, 03:27 : Bladder: tenderness, that is mild, Sexual behavior: the patient is sexually active, and reports a single partner, 03:27 Neuro: Orientation: is normal, appropriate for stated age, no acute changes, Mentation: is normal, appropriate for stated age, no acute changes, Memory: is normal, appropriate for stated age, no acute changes, Cranial nerves: grossly normal, is grossly normal based on the patient's age, no acute changes, Cerebellar function: is grossly normal, is grossly normal based on the patient's age, no acute changes, Motor: is normal, is grossly normal based on the patient's age, Sensation: is normal, no obvious gross deficits, appropriate Gait: not tested. Deep tendon reflexes are 2+ (normal) in the bilateral brachioradialis, bicep, tricep and patellar and Achilles tendons, Babinski testing is normal, seizure activity, is not displayed by the patient, Vital Signs: 01:13 BP 95 / 66; Pulse 122; Resp 18; Temp 98.1; Pulse Ox 95% ; Weight 45.36 kg; Height 5 ft. br2 4 in. ; Pain 10/10; 02:21 BP 95 / 55; Resp 16; Pulse Ox 97% on R/A; ss12 02:39 BP 111 / 61; Pulse 100; Resp 20; Pulse Ox 96% on R/A; Weight 43.09 kg; Height 5 ft. 4 ss12 in. ; Pain 5/10; 02:39 Body Mass Index 16.31 (43.09 kg, 162.56 cm) ss12 01:13 Pain Scale: Adult br2 02:39 Pain Scale: Adult ss12 MDM: 01:08 Medical Screening Exam initiated ida 03:32 Differential diagnosis: appendicitis, cervicitis, kidney stone, nonspecific abdominal ida pain, ovarian cyst, viral Infection, bacterial infection, URI, bronchitis, pneumonia UTI, gastroenteritis, meningitis, Basilar Pneumonia Cholelithiasis chronic back pain, Fatigue Fracture Pyelonephritis Renal Infarction ruptured disc, Ureterolithiasis pelvic inflammatory disease, uterine fibroids, urinary tract infection. Data reviewed: vital signs, nurses notes, lab test result(s). Consideration of Admission/Observation Patient was admitted/placed on observation. Escalation of care including admission/observation considered. I considered the following discharge prescriptions or medication management in the emergency department Medications were administered in the Emergency Department. See MAR. Independent interpretation of the following test(s) in the Emergency Department CT Scan: My interpretation is ct abd pelvis. Historians other than the Patient: Spouse/Significant Other: sign other well informrd. Care significantly affected by the following chronic conditions: add, anemia. Counseling: I had a detailed discussion with the patient and/or guardian regarding the historical points, exam findings, and any diagnostic results supporting the discharge/admit diagnosis, lab results, radiology results, the need for further work-up and treatment in the hospital. 11/29 01:10 Order name: CBC with Diff [facility] 11/29 01:10 Order name: CMP; Complete Time: 03:13 ida 11/29 01:10 Order name: Lipase; Complete Time: 03:13 ida 11/29 01:10 Order name: Test, Urine; Complete Time: 03:13 ida 11/29 01:11 Order name: UA Rfx Sunday Cult if indicated; Complete Time: 03:13 ida 11/29 01:30 Order name: Blood Culture Adult (2) [facility] 11/29 01:30 Order name: Lactate w/ 2H reflex if indic.; Complete Time: 03:13 ida 11/29 01:32 Order name: COVID-19 Ag + Flu A+B Ag; Complete Time: 03:13 ida 11/29 01:32 Order name: Group A Streptococcus Rapid; Complete Time: 03:13 ida 11/29 01:44 Order name: Manual Differential EDMS 11/29 02:19 Order name: Urine Culture EDMS 11/29 02:42 Order name: Throat Culture EDMS 11/29 04:18 Order name: UA Rfx Sunday Cult if indicated EDMS 11/29 04:18 Order name: CBC with Automated Diff EDMS 11/29 04:18 Order name: CBC with Automated Diff EDMS 11/29 04:18 Order name: CBC with Automated Diff EDMS 11/29 04:18 Order name: CBC with Automated Diff EDMS 11/29 04:18 Order name: Comprehensive Metabolic Panel EDMS 11/29 04:18 Order name: Comprehensive Metabolic Panel EDMS 11/29 04:18 Order name: Comprehensive Metabolic Panel EDMS 11/29 04:19 Order name: Comprehensive Metabolic Panel EDMS 11/29 04:19 Order name: Magnesium EDMS 11/29 04:19 Order name: Magnesium EDMS 11/29 04:19 Order name: Magnesium EDMS 11/29 04:19 Order name: Magnesium EDMS 11/29 01:10 Order name: CT Abd/Pelvis - IV Contrast Only [facility] 11/29 01:10 Order name: Chest Single View XRAY [facility] 11/29 01:10 Order name: IV Saline Lock; Complete Time: 01:37 ida 11/29 01:10 Order name: Labs collected and sent; Complete Time: 01:37 ida 11/29 03:18 Order name: PO challenge: juice ida Administered Medications: 01:31 Not Given (Duplicate Order): ns 0.9% 1000 ml IV at 1 bolus Per protocol; to be given as ida a bolus over 60 minutes 01:36 Drug: Famotidine IVP 20 mg IVP once; dilute with 10 mL 0.9% NaCl; give over 2 minutes br2 Route: IVP; Site: left antecubital; 02:15 Follow up: Response: No adverse reaction br2 01:37 Drug: Ondansetron IVP 4 mg IVP once; over 2 minutes Route: IVP; Site: left antecubital; br2 02:15 Follow up: Response: No adverse reaction br2 01:37 Not Given (Physician Discretion): morphineor iv 4 mg IVP once over 4 mins br2 01:38 Drug: NS 0.9% IV (30 ml/kg) 30 ml/kg IV at bolus once; Sepsis Protocol; to be given as br2 a bolus over 90 minutes Route: IV; Rate: bolus; Site: left antecubital; 04:42 Follow up: IV Status: Completed infusion; IV Intake: 1000ml br2 01:38 Drug: morphine IVP or IV 2 mg IVP once over 4 mins Route: IVP; Infused Over: 4 mins; br2 Site: left antecubital; 02:31 Drug: Rocephin IV 1 grams IV at per protocol once; Given slow IV push per pharmacy br2 instructions Route: IV; Rate: per protocol; Site: left antecubital; 03:00 Follow up: IV Status: Completed infusion; IV Intake: 10ml br2 04:23 Drug: Meropenem IV 1 grams IV at per protocol once; (mix in NS 100 mL) Route: IV; Rate: ss12 per protocol; Site: left forearm; 04:49 Follow up: Response: No adverse reaction; IV Status: Completed infusion ss12 04:23 Drug: Potassium PO Effervescent Tablet 25 mEq PO once; dissolve in 4 ounces of water or ss12 juice Route: PO; 04:49 Follow up: Response: No adverse reaction ss12 Disposition Summary: 11/29/24 03:36 Hospitalization Ordered Notes: Hospitalization Status: Inpatient Admission ida Provider: Jefe Bruner cha Location: Telemetry/[facility] (Inpatient) ida Condition: Stable ida Problem: new ida Symptoms: have improved ida Bed/Room Type: Standard [facility] Room Assignment: 228(11/29/24 04:34) vk Diagnosis - Fever, unspecified ida - Pyelonephritis acute - bilateral ida - Elevated white blood cell count ida - Weakness ida - Hypokalemia ida - Acute cystitis ida - Acute cystitis with hematuria ida Forms: - Medication Reconciliation Form ida - SBAR form ida - Leadership Thank You Letter ida Critical care time excluding procedures: 03:34 Critical care time: Bedside Care: 25 minutes, Consultation: 10 minutes, Family ida Intervention: 5 minutes. Total time: 40 minutes Signatures: Dispatcher [employer] EDRonal Song MD MD cha Kruse, Vivian vk Riddle, Belinda, RN RN br2 Ra Knapp RN RN ss12 Corrections: (The following items were deleted from the chart) 01:10 01:10 CBC+H.LAB.BRZ ordered. EDMS EDMS 01:10 01:10 COMPREHENSIVE METABOLIC PANEL+C.LAB.BRZ ordered. EDMS EDMS 01:10 01:10 LIPASE+C.LAB.BRZ ordered. EDMS EDMS 01:10 01:10 Test, Urine+UC.LAB.BRZ ordered. EDMS EDMS 01:11 01:11 Abdomen Pelvis W Con+CT.RAD.BRZ ordered. EDMS EDMS 01:11 01:11 Chest Single View+RAD.RAD.BRZ ordered. EDMS EDMS : 01:11 UA Rfx Sunday Cult if indicated+U.LAB.BRZ ordered. EDMS EDMS 01:31 BLOOD CULTURE*+BA.LAB.BRZ ordered. EDMS EDMS 01:31 LACTATE+C.LAB.BRZ ordered. EDMS EDMS 04:34 03:36 ida vk
--- NOTE | 2024-11-29 03:37 | ER ---
Nurse's Notes [facility] [place] Name: Nithya Alexis Age: 18 yrs Sex: Female : 2005 Arrival Date: 11/29/2024 Time: 00:49 Bed 18 Private MD: Diagnosis: Fever, unspecified;Pyelonephritis acute-bilateral;Elevated white blood cell count;Weakness;Hypokalemia;Acute cystitis;Acute cystitis with hematuria Presentation: 11/29 01:13 Chief complaint: Patient states: PT C/O BODYACHES FOR THE LAST WEEK, NAUSEA AND FEVER br2 TODAY. DENIES V/D. Coronavirus screen: Client denies travel out of the [place] in the last 14 days. Ebola Screen: Patient denies exposure to infectious person. Initial Sepsis Screen: Does the patient meet any 2 criteria? HR > 90 bpm. Does the patient have a suspected source of infection? No. Patient's initial sepsis screen is negative. Risk Assessment: Do you want to hurt yourself or someone else? Patient reports no desire to harm self or others. Onset of symptoms was November 22, 2024. 01:13 Method Of Arrival: Ambulatory br2 01:13 Acuity: RACHEAL 3 br2 Triage Assessment: 01:15 General: Appears in no apparent distress. comfortable, Behavior is calm, cooperative. br2 Pain: Complains of pain in head, chest, abdomen, pelvis, right arm, left arm, right leg and left leg Pain currently is 10 out of 10 on a pain scale. GI: Reports nausea. MANAGER PRODUCT SUPPORT: 02:31 unknown ss12 Historical: - Allergies: 01:15 Aspirin; br2 01:15 Latex; br2 - PMHx: 01:15 ADD/HD; Anemia; PTSD; br2 - PSHx: 02:30 Surgery for broken vessel; ss12 - Immunization history:: Adult Immunizations not up to date. - Infectious Disease History:: Denies. - Social history:: Smoking status: Patient reports the use of cigarette tobacco products, smokes one-half pack cigarettes per day, Patient uses alcohol, occasionally. Patient/guardian denies using alcohol, street drugs. Screenin:13 [facility] ED Fall Risk Assessment (Adult) History of falling in the last 3 months, br2 including since admission No falls in past 3 months (0 pts) Confusion or Disorientation No (0 pts) Intoxicated or Sedated No (0 pts) Impaired Gait No (0 pts) Mobility Assist Device Used No (0 pt) Altered Elimination No (0 pt) Score/Fall Risk Level 0 - 2 = Low Risk Oriented to surroundings. Abuse screen: Denies threats or abuse. Denies injuries from another. Nutritional screening: No deficits noted. Tuberculosis screening: No symptoms or risk factors identified. Assessment: 02:39 General: Appears in no apparent distress. Behavior is calm, cooperative, Smells of ss12 Reports chills for fever for. Pain: Complains of pain in abdomen Pain currently is 5 out of 10 on a pain scale. Quality of pain is described as aching. Neuro: No deficits noted. Cardiovascular: No deficits noted. Respiratory: Reports pain with movement pain with respiration Airway is patent Denies shortness of breath. GI: Abdomen is flat, Bowel sounds Abdomen is tender to palpation Reports upper abdominal pain. : No deficits noted. No signs and/or symptoms were reported regarding the genitourinary system. EENT: No deficits noted. No signs and/or symptoms were reported regarding the EENT system. Derm: No deficits noted. No signs and/or symptoms reported regarding the dermatologic system. Musculoskeletal: No deficits noted. No signs and/or symptoms reported regarding the musculoskeletal system. Vital Signs: 01:13 BP 95 / 66; Pulse 122; Resp 18; Temp 98.1; Pulse Ox 95% ; Weight 45.36 kg; Height 5 ft. br2 4 in. ; Pain 10/10; 02:21 BP 95 / 55; Resp 16; Pulse Ox 97% on R/A; ss12 02:39 BP 111 / 61; Pulse 100; Resp 20; Pulse Ox 96% on R/A; Weight 43.09 kg; Height 5 ft. 4 ss12 in. ; Pain 5/10; 02:39 Body Mass Index 16.31 (43.09 kg, 162.56 cm) ss12 01:13 Pain Scale: Adult br2 02:39 Pain Scale: Adult ss12 ED Course: 00:53 Patient arrived in ED. gm2 01:08 Ronal Ferrell MD is Attending Physician. [facility] 01:13 Patient has correct armband on for positive identification. Bed in low position. Call br2 light in reach. Side rails up X 1. Provided Education on: PLAN OF CARE. 01:13 Inserted saline lock: 22 gauge in left antecubital area, using aseptic technique. Blood br2 collected. Flushed with 10 mL NS. 01:15 Triage completed. br2 01:20 Pamela Chin, RN is Primary Nurse. sd4 01:40 Chest Single View XRAY In Process Unspecified. EDMS 02:27 CT Abd/Pelvis - IV Contrast Only In Process Unspecified. EDMS 02:30 Arm band placed on right wrist. ss12 02:30 No provider procedures requiring assistance completed. ss12 03:35 Jefe Bruner MD is Hospitalizing Provider. ida 05:39 Patient admitted, IV remains in place. ss12 Administered Medications: 01:31 Not Given (Duplicate Order): ns 0.9% 1000 ml IV at 1 bolus Per protocol; to be given as ida a bolus over 60 minutes 01:36 Drug: Famotidine IVP 20 mg IVP once; dilute with 10 mL 0.9% NaCl; give over 2 minutes br2 Route: IVP; Site: left antecubital; 02:15 Follow up: Response: No adverse reaction br2 01:37 Drug: Ondansetron IVP 4 mg IVP once; over 2 minutes Route: IVP; Site: left antecubital; br2 02:15 Follow up: Response: No adverse reaction br2 01:37 Not Given (Physician Discretion): morphineor iv 4 mg IVP once over 4 mins br2 01:38 Drug: NS 0.9% IV (30 ml/kg) 30 ml/kg IV at bolus once; Sepsis Protocol; to be given as br2 a bolus over 90 minutes Route: IV; Rate: bolus; Site: left antecubital; 04:42 Follow up: IV Status: Completed infusion; IV Intake: 1000ml br2 01:38 Drug: morphine IVP or IV 2 mg IVP once over 4 mins Route: IVP; Infused Over: 4 mins; br2 Site: left antecubital; 02:31 Drug: Rocephin IV 1 grams IV at per protocol once; Given slow IV push per pharmacy br2 instructions Route: IV; Rate: per protocol; Site: left antecubital; 03:00 Follow up: IV Status: Completed infusion; IV Intake: 10ml br2 04:23 Drug: Meropenem IV 1 grams IV at per protocol once; (mix in NS 100 mL) Route: IV; Rate: ss12 per protocol; Site: left forearm; 04:49 Follow up: Response: No adverse reaction; IV Status: Completed infusion ss12 04:23 Drug: Potassium PO Effervescent Tablet 25 mEq PO once; dissolve in 4 ounces of water or ss12 juice Route: PO; 04:49 Follow up: Response: No adverse reaction ss12 Medication: 02:30 VIS not applicable for this client. ss12 Intake: 03:00 IV: 10ml; Total: 10ml. br2 04:42 IV: 1000ml; Total: 1010ml. br2 Outcome: 03:36 Decision to Hospitalize by Provider. ida 05:35 Admitted to Med/surg accompanied by tech, via wheelchair, ss12 05:35 Condition: stable 05:35 Discharge instructions given to 05:51 Patient left the ED. ss12 Signatures: Dispatcher [employer] EDRonal Song MD MD cha Mitchell, Ginger gm2 Natacha Chatterjee RN RN br2 Ra Knapp RN RN 12 Pamela Chin, RN RN sd4 Corrections: (The following items were deleted from the chart) 02:46 02:31 GI: ss12 ss12
[2024-11-29] MEDS ORDERED: Meropenem 1000 MG/VIAL IV ONE (04:02)
[2024-11-29] MEDS ORDERED: POTASSIUM 25 MEQ EFFERV TAB ONE (04:02)
[2024-11-29] MEDS ORDERED: NA CHLORIDE 0.9% 100 ML ONE (04:02)
[2024-11-29 04:13] LABS: Differential Total Cells Count 100; Segmented Neutrophils 75 % (40-80)
[2024-11-29 04:14] LABS: Blood Morphology Comment NOT SEEN (NOT SEEN)
[2024-11-29] MEDS ORDERED: ONDANSETRON 4 MG/2 ML VIAL IV PRN (04:14)
--- NOTE | 2024-11-29 05:30 | P.HP ---
Certification for Inpatient Patient admitted to: Inpatient With expected LOS: >2 Midnights Patient will require the following post-hospital care: None Practitioner: I am a practitioner with admitting privileges, knowledge of patient current condition, hospital course, and medical plan of care. Services: Services provided to patient in accordance with Admission requirements found in Title 42 Section 412.3 of the Code of Federal Regulations Patient History Date of Service: 11/29/24 Reason for admission: Acute bilateral pyelonephritis. History of Present Illness: Patient is a pleasant 18 years old female with no significant past medical history except nicotine use disorder, who presents to the ER today complaining of lower abdominal pain with bilateral right and left flank pain, associated with chills and fever of 101 F. Patient states her symptoms began 3 days ago with associated nausea and vomiting x 1 nonbilious and nonbloody content. Pat ient states her symptoms progressively worsened with severe pain lower abdomen and bilateral right and left flank which then prompted her to report to the ER. Allergies aspirin Allergy (Verified 11/29/24 04:43) unknown latex Allergy (Verified 11/29/24 04:43) unknown - Past Medical/Surgical History Diabetic: No -: Patient states she does not have any past medical history. -: Patient states she does not have any past surgical history. - Family History Family History: Reviewed- Non-Contributory - Social History Smoking Status: Current every day smoker Patient receptive to therapy: No Alcohol use: No CD- Drugs: No Caffeine use: No Place of Residence: Home Review of Systems 10-point ROS is otherwise unremarkable Gastrointestinal: Nausea, Vomiting, Abdominal Pain, Other (Bilateral flank pain.) Genitourinary: Frequency, Urgency Physical Examination - Physical Exam General: Oriented x3, Cooperative HEENT: Atraumatic, Normocephalic, PERRLA, Mucous membr. moist/pink Neck: Supple, 2+ carotid pulse no bruit, No LAD, Without JVD or thyroid abnormality Respiratory: Clear to auscultation bilaterally, Normal air movement Cardiovascular: No edema, Normal pulses, Regular rate/rhythm, Normal S1 S2, No gallops, No rubs Capillary refill: <2 Seconds Gastrointestinal: Non-distended, W/out hepatomegaly, No ascites, No masses, No rebound, Tenderness, Rebound, Guarding Musculoskeletal: No clubbing, No swelling, No contractures, No erythema, No tenderness, No warmth Integumentary: No rashes, No breakdown, No significant lesion, No tende rness/swelling, No erythema, No warmth, No cyanosis Neurological: Normal gait, Normal speech, Normal strength at 5/5 x4 extr, Normal tone, Sensation intact, Cranial nerves 3-12 intact, Normal reflexes 2+, Normal affect Lymphatics: No axilla or inguinal lymphadenopathy - Studies Laboratory Data (last 24 hrs) 11/29/24 11/29/24 01:27 01:27 WBC 24.90 H Hgb 12.2 Hct 35.7 L Plt Count 255 Sodium 137 Potassium 3.1 L BUN 5 L Creatinine 0.76 Glucose 111 H Total Bilirubin 0.6 AST < 10 L ALT < 14 Alkaline Phosphatase 96 Lipase 16 Female Exam - Breasts Breasts: Normal configuration Assessment and Plan - Plan Patient reports to ER complaining of severe and worsening pain bilateral right and left flank area, with associated fever of 101 F, with no chest pain or shortness of breath. Patient is diagnosed with bilateral pyelonephritis. (1)Ceftriaxone 2 g IV daily. Patient received initial dose of ceftriaxone 1 g in ER. -IV D5 half NS at 75ml/hr x 1 L -Zofran 4 mg IV as needed every 6 hours. -Urine culture ordered. (2)Explained the entire treatment plan to the patient, and significant other present at the bedside, solicit questions answered and voiced understanding. Discharge Plan: Home Plan to discharge in: Greater than 2 days - Advance Directives Does patient have a Living Will: No Does patient have a Durable POA for Healthcare: No - Code Status/Comfort Care Code Status Assessed: Yes Code Status: Full Code Critical Care: No Time Spent Managing Pts Care (In Minutes): 55
[2024-11-29] MEDS: D5 0.45 NS 1,000 ML IV SCH (05:48)
[2024-11-29] MEDS: POTASSIUM CL SA 10 MEQ TAB PO ONE (05:49)
--- NOTE | 2024-11-29 06:11 | RAD REPORT ---
INDICATION: ABDOMINAL DISTENTION COMPARISON: No existing relevant imaging studies are available FINDINGS: Single frontal view of the chest was obtained. SUPPORT DEVICES: None HEART/MEDIASTINUM: Cardiomediastinal contours are normal. LUNGS/PLEURA: Lungs are clear. No pleural effusion or pneumothorax. OTHER: No other significant findings. IMPRESSION: No acute findings. Electronically signed by: Efra Hunt DO 11/29/2024 03:10 AM CDT RP NR Due to temporary technical issues with the PACS/[employer] reporting system, reports are being juan ramon d by the in-house radiologist without review as a courtesy to ensure prompt reporting the interpreting radiologist is fully responsible for the content of the report. Transcribed Date/Time: 11/29/2024 6:10 AM
[2024-11-29] MEDS: ACETAMINOPHEN 325 MG TABLET PO PRN (06:22)
[2024-11-29] MEDS: CEFTRIAXONE 2,000 MG in NA CHLORIDE 0.9% 100 ML IV SCH (20:16)
[2024-11-29] MEDS: ENSURE ENLIVE 237 ML CAN PO SCH (20:19)
[2024-11-30 06:22] VITALS: BMI 17.5
[2024-11-30 06:26] LABS: Absolute Lymphocytes (CBC) 2.0 K/uL (0.7-4.9); Hematocrit 30.6 % (36.0-45.0); Hemoglobin 10.7 g/dL (12.0-15.0); MCH 31.2 pg (27.0-35.0); MCHC 35.1 g/dL (32.0-36.0); MCV 88.9 fL (80-100); MPV 7.1 fL (7.6-11.3); Nucleated RBC Absolute Count 0.0 (0-0); Nucleated Red Blood Cells % 0.0 % (0-0); RBC Red Blood Cell Count 3.44 M/uL (3.86-4.86); White Blood Count 16.40 thou/uL (4.3-10.9)
[2024-11-30 06:50] LABS: Albumin 2.9 g/dL (3.4-5.0); Albumin/Globulin Ratio 0.9 (1.1-1.8); Alkaline Phosphatase 76 U/L (45-117); Anion Gap 10.9 mEq/L (5.0-15.0); BUN Blood Urea Nitrogen 4 mg/dL (7-18); Globulin 3.2 g/dL (2.3-3.5); Glucose Level 126 mg/dL (74-106); Magnesium 1.8 mg/dL (1.6-2.4); Potassium 3.9 mEq/L (3.5-5.1)
[2024-11-30 06:52] LABS: ALT/SGPT < 14 U/L (13-56); AST/SGOT < 10 U/L (15-37)
[2024-11-30] MEDS: POTASSIUM CL SA 10 MEQ TAB PO ONE (08:15)
[2024-11-30] MEDS: MAGNESIUM SULFATE 1 gm IVPB 1 GM/100 ML BAG IV ONE (08:15)
--- NOTE | 2024-11-30 15:55 | P.PN ---
Subjective Date of Service: 11/30/24 Chief Complaint: Acute bilateral pyelonephritis. Patient denies any new complaint. No fever today. Patient tolerating diet, she reports only mild bilateral flank pain. Physical Examination - Vital Signs Temperature: 98.1 F Blood Pressure: 111/61 Pulse: 96 Respirations: 16 Pulse Ox (%): 99 Assessment And Plan - Plan Physical examination General: Alert and oriented x3, NAD, HEENT: Conjunctiva not pale, anicteric sclera Neck: Supple, no elevated JVD Heart: Heart sounds 1 and 2 normal, regular rhythm, normal rate, no pedal edema Lungs: Clear to auscultation bilaterally, adequate breath sounds bilaterally, no rhonchi or crackles. Abdomen: Soft, nondistended, nontender, normal bowel sounds. Extremities: No tenderness, no deformity Skin: Normal skin turgor, no rash, no nodules or ulcers. Neuro: No focal motor deficit. Normal speech. Psychiatry: Normal mood, no agitation.\ Diagnosis Sepsis Acute bilateral pyelonephritis Hypokalemia Plan: Patient is responding well to IV Rocephin. Leukocytosis significantly trended down Urine cultures growing gram-negative rods Continue IV Rocephin Follow blood cultures and urine culture Awaiting urine culture organism ID and sensitivity for outpatient antibiotic therapy. Hypokalemia corrected. DVT prophylaxis: Lovenox
[2024-11-30 23:18] VITALS: O2SAT 99
[2024-12-01 05:11] LABS: Absolute Lymphocytes (CBC) 2.0 K/uL (0.7-4.9); Hematocrit 35.1 % (36.0-45.0); Hemoglobin 12.4 g/dL (12.0-15.0); MCH 31.1 pg (27.0-35.0); MCHC 35.3 g/dL (32.0-36.0); MCV 88.3 fL (80-100); MPV 6.9 fL (7.6-11.3); Nucleated RBC Absolute Count 0.0 (0-0); Nucleated Red Blood Cells % 0.1 % (0-0); RBC Red Blood Cell Count 3.98 M/uL (3.86-4.86); White Blood Count 11.40 thou/uL (4.3-10.9)
[2024-12-01 05:25] LABS: ALT/SGPT 29.0 U/L (13-56); AST/SGOT 25.0 U/L (15-37); Albumin 3.3 g/dL (3.4-5.0); Albumin/Globulin Ratio 0.8 (1.1-1.8); Alkaline Phosphatase 89.0 U/L (45-117); Anion Gap 8.1 mEq/L (5.0-15.0); BUN Blood Urea Nitrogen 9.0 mg/dL (7-18); Globulin 3.9 g/dL (2.3-3.5); Glucose Level 119.0 mg/dL (74-106); Magnesium 2.1 mg/dL (1.6-2.4); Potassium 4.1 mEq/L (3.5-5.1)
[2024-12-01] MEDS: ENOXAPARIN 40 MG/0.4 ML SQ SCH (09:02)
--- NOTE | 2024-12-01 14:37 | P.DS ---
Admission Date: 11/29/24 Discharge Date: 12/02/24 Disposition: ROUTINE DISCHARGE Discharge Condition: FAIR Reason for Admission: Acute bilateral pyelonephritis. Brief History of Present Illness: 18-year-old woman with no past medical history presented to the ER today complaining of lower abdominal pain with bilateral right and left flank pain, associated with chills and fever of 101 F, associated nausea and vomiting. UA in the ED suggest a UTI. Patient expected for sepsis with leukocytosis, tachycardia and fever. Patient was hospitalized for further management. Hospital Course: Diagnosis Sepsis Bilateral pyelonephritis, pyelitis and ureteritis Patient admitted to the medical floor and treated with IV Rocephin. Blood cultures yielded no growth. Sepsis resolved with IV Rocephin. Leukocytosis resolved. Urine culture grew ESBL E. coli. Antibiotics switched to IV meropenem. Infectious disease consulted, patient evaluated by ID who recommended 10 days of IV Invanz. Outpatient IV antibiotics arranged. 1 dose of IV Invanz given today. Patient became asymptomatic during the hospital stay. She is ambulatory, tolerating diet with stable vitals. Patient is deemed stable for discharge. Vital Signs/Physical Exam: Temp Pulse Resp BP Pulse Ox 98.2 F 96 H 16 110/59 L 100 12/01/24 12:00 12/01/24 12:00 12/01/24 12:00 12/01/24 12:00 12/01/24 12:00 General: Alert, In no apparent distress HEENT: Mucous membr. moist/pink Neck: JVD not distended Respiratory: Clear to auscultation bilaterally, Normal air movement Cardiovascular: No edema, Regular rate/rhythm, Normal S1 S2 Gastrointestinal: Normal bowel sounds, Soft and benign, Non-distended, No tenderness Musculoskeletal: No swelling Integumentary: No rashes, No cyanosis Neurological: Normal strength at 5/5 x4 extr Laboratory Data at Discharge: WBC 11.40 thou/uL (4.3-10.9) H 12/01/24 04:34 Hgb 12.4 g/dL (12.0-15.0) D 12/01/24 04:34 Hct 35.1 % (36.0-45.0) L 12/01/24 04:34 Plt Count 326 thou/uL (152-406) D 12/01/24 04:34 Sodium 137 mEq/L (136-145) 12/01/24 04:34 Potassium 4.1 mEq/L (3.5-5.1) 12/01/24 04:34 BUN 9 mg/dL (7-18) 12/01/24 04:34 Creatinine 0.53 mg/dL (0.55-1.02) L 12/01/24 04:34 Glucose 119 mg/dL (74-106) H 12/01/24 04:34 Magnesium 2.1 mg/dL (1.6-2.4) 12/01/24 04:34 Total Bilirubin 0.2 mg/dL (0.2-1.0) 12/01/24 04:34 AST 25 U/L (15-37) 12/01/24 04:34 ALT 29 U/L (13-56) 12/01/24 04:34 Alkaline Phosphatase 89 U/L (45-117) 12/01/24 04:34 Lipase 16 U/L (13-75) 11/29/24 01:27 Home Medications: Acetaminophen [Tylenol Extra Strength] 500 mg PO Q4H PRN 11/29/24 Ibuprofen 200 mg PO Q4H PRN 11/29/24 Diet: Regular Activity: Ad praveen Followup: Antonio Chambers MD [ACTIVE - CAN ADMIT] - NONE,NONE [Primary Care Provider] - 1-2 Weeks Time spent managing pt's care (in minutes): 36
--- NOTE | 2024-12-01 17:12 | P.PN ---
Subjective Date of Service: 12/01/24 Chief Complaint: Acute bilateral pyelonephritis. Patient denies any new complaint. She is ambulatory, eating well No fever over the past couple of days. Physical Examination - Vital Signs Temperature: 98.2 F Blood Pressure: 111/72 Pulse: 85 Respirations: 16 Pulse Ox (%): 100 - Studies Microbiology Data (last 24 hrs): 11/29/24 01:27 Catheterized Urine [place] Count - Final 11/29/24 01:27 Catheterized Urine - Final Escherichia Coli Esbl Assessment And Plan - Plan Physical examination General: Alert and oriented x3, NAD, Heart: Heart sounds 1 and 2 normal, regular rhythm, normal rate, no pedal edema Lungs: Clear to auscultation bilaterally, adequate breath sounds bilaterally, no rhonchi or crackles. Abdomen: Soft, nondistended, nontender, normal bowel sounds. Extremities: No tenderness, no deformity Skin: Normal skin turgor, no rash.. Neuro: No focal motor deficit. Normal speech. Psychiatry: Normal mood, no agitation. Diagnosis Sepsis Acute bilateral pyelonephritis Hypokalemia Plan: Urine culture grew ESBL E. coli. Leukocytosis almost resolved. Blood cultures yielded no growth. IV Rocephin changed to IV meropenem. Patient need to complete at least 5 days of treatment. Midline ordered for outpatient IV meropenem Monitor and correct electrolytes as needed. DVT prophylaxis: Lovenox
[2024-12-01] MEDS: Meropenem 1,000 MG in NA CHLORIDE 0.9% 100 ML IV SCH (17:40)
[2024-12-01] MEDS ORDERED: Mupirocin NASAL 2 APPL/1 GM TUBE NAS SCH (21:00)
[2024-12-02 08:51] LABS: Absolute Lymphocytes (CBC) 1.9 K/uL (0.7-4.9); Hematocrit 35.1 % (36.0-45.0); Hemoglobin 12.2 g/dL (12.0-15.0); MCH 31.0 pg (27.0-35.0); MCHC 34.8 g/dL (32.0-36.0); MCV 88.9 fL (80-100); MPV 6.5 fL (7.6-11.3); Nucleated RBC Absolute Count 0.0 (0-0); Nucleated Red Blood Cells % 0.1 % (0-0); RBC Red Blood Cell Count 3.95 M/uL (3.86-4.86); White Blood Count 7.50 thou/uL (4.3-10.9)
[2024-12-02 09:08] LABS: ALT/SGPT 50.0 U/L (13-56); AST/SGOT 36.0 U/L (15-37); Albumin 3.1 g/dL (3.4-5.0); Albumin/Globulin Ratio 0.9 (1.1-1.8); Alkaline Phosphatase 78.0 U/L (45-117); Anion Gap 7.0 mEq/L (5.0-15.0); BUN Blood Urea Nitrogen 9.0 mg/dL (7-18); Globulin 3.5 g/dL (2.3-3.5); Glucose Level 97.0 mg/dL (74-106); Magnesium 2.2 mg/dL (1.6-2.4); Potassium 4.0 mEq/L (3.5-5.1)
[2024-12-02] MEDS: ERTAPENEM SODIUM 1 GM VIAL IVPB SCH (14:00)
--- NOTE | 2024-12-02 14:59 | P.CNS ---
Date of Consult: 12/02/24 reason for consult: pyelonephritis reason for consult: pyelonephritis HPI:18 years old female with no significant past medical history except nicotine use disorder who presents to the ER complaining of lower abdominal pain with bilateral right and left flank pain, associated with chills and fever of [address] shows bilateral pyelonephritis. currently on merrem. pt denied NVD, states symptoms is improving. states last UTI was a while ago when she was 7 or 8 years old. no other concern Allergies aspirin Allergy (Verified 11/29/24 05:44) Hives latex Allergy (Verified 11/29/24 05:44) Rash Current Medications Acetaminophen (Acetaminophen 325 Mg Tablet) 650 mg PO Q4HP PRN PRN Reason: Pain scale 2-4 (Mild) Last Admin: 12/01/24 21:04 Dose: 650 mg Enoxaparin Sodium (Enoxaparin 40 Mg/0.4 Ml) 40 mg SQ DAILY [facility] Last Admin: 12/02/24 09:00 Dose: Not Given Ertapenem 1 gm/ Sodium (Chloride) 100 mls @ 200 mls/hr IVPB Q24H [facility] Nutritional Formula (Ensure Enlive 237 Ml Can) 237 ml PO BID [facility] Last Admin: 12/02/24 09:00 Dose: 237 ml Ondansetron HCl (Ondansetron 4 Mg/2 Ml Vial) 4 mg IV Q6HP PRN PRN Reason: NAUSEA / VOMITING - Past Medical/Surgical History Diabetic: No -: Patient states she does not have any past medical history. -: Patient states she does not have any past surgical history. - Family History Family History: Reviewed- Non-Contributory - Social History Smoking Status: Current every day smoker Patient receptive to therapy: No Alcohol use: No CD- Drugs: No Caffeine use: No Place of Residence: Home Review of Systems 10-point ROS is otherwise unremarkable objective Temp Pulse Resp BP Pulse Ox 98.0 F 86 15 90/52 L 97 12/02/24 12:00 12/02/24 12:00 12/02/24 12:00 12/02/24 12:00 12/02/24 12:00 Physical Examination - Physical Exam General: Oriented x3, Cooperative HEENT: Atraumatic, Normocephalic, PERRLA Neck: Supple, Respiratory: Clear to auscultation bilaterally Cardiovascular:RRR Capillary refill: <2 Seconds Gastrointestinal: Non-distended, ND, BS present Musculoskeletal: no abnormalities Integumentary: No rashes, No breakdown Neurological: respond appropriately to questions Microbiology 11/29/24 01:27 Catheterized Urine [place] Count - Final 11/29/24 01:27 Catheterized Urine - Final Escherichia Coli Esbl 11/29/24 02:13 Blood - Blood Aerobic Blood Culture - Preliminary No growth in 24 hours. 11/29/24 02:13 Blood - Blood Anaerobic Blood Culture - Preliminary No growth in 24 hours. 11/29/24 01:53 Blood - Blood Aerobic Blood Culture - Preliminary No growth in 24 hours. 11/29/24 01:53 Blood - Blood Anaerobic Blood Culture - Preliminary No growth in 24 hours. labs: wbc 7.5, Hgb 12.2, plt count 127, bun 9, cr 0.6, albumin 3.1 Assessment and planning 1. Urosepsis secondary to ESBL E coli urine 2. Acute bilateral pyelonephritis 3. moderate protein calorie malnourishment continue merrem x 10 days. can be discharge to home with ertapenem. tentative stop date dec 11 will continue to monitor patient as needed Dr chambers will follow up with patient outpatient thank you Dr malone for the consult case discussed and in agreement with Dr Chambers
[2024-12-02] MEDS: ERTAPENEM NA 1 GM in NA CHLORIDE 0.9% 100 ML IVPB SCH (15:13)
[2024-12-02 16:08] VITALS: BP 92/50; TEMP 97.9
== END 2024-12-02 18:45 | disposition home or self-care (01) | DRG 872 ==
LOC: ER 00:49 → ERHOLD 04:08 → 2ND 04:54
PROVIDERS: ADMIT Internal Medicine; ATTEND Internal Medicine
PROC: 02HV33Z Insertion of Infusion Device into Superior Vena Cava, Percutaneous Approach (ICD-10-PCS; principal; 2024-12-01)
DX: A41.9 Sepsis, unspecified organism (principal); N10 Acute pyelonephritis; Z16.12 Extended spectrum beta lactamase (ESBL) resistance; E44.0 Moderate protein-calorie malnutrition; Z68.1 Body mass index [BMI] 19.9 or less, adult; E87.6 Hypokalemia; F43.10 Post-traumatic stress disorder, unspecified; B96.20 Unspecified Escherichia coli [E. coli] as the cause of diseases classified elsewhere; F17.210 Nicotine dependence, cigarettes, uncomplicated; Z88.6 Allergy status to analgesic agent; Z11.52 Encounter for screening for COVID-19; Z91.040 Latex allergy status
CPT/HCPCS: 36415; 71045; 74177; 80053; 81001; 81025; 83605; 83690; 83735; 84132; 85025; 87040; 87070; 87077; 87086; 87088; 87186; 87428; 99285; J0696; J1335; J1650; J2185; J2270; J2405; J3475; J7030; J7799; Q9967